=== PATIENT | female | born 1935 | race African-American/Black ===

== ENCOUNTER 2016-09-04 16:24 | Inpatient (IN) | payer OTHER, BC ==
[2016-09-04] MEDS ORDERED: SODIUM CHLORIDE 1,000 ML IV STA (16:56)
[2016-09-04] MEDS ORDERED: ACETAMINOPHEN 325 MG TABLET (FP) PO ONE (16:58)
[2016-09-04] MEDS ORDERED: ACETAMINOPHEN 325 MG TABLET (FP) ONE (17:09)
[2016-09-04 17:17] LABS: BASOPHIL 0.4 % (0-2.0); EOSINOPHIL 0.3 % (0-4.5); MCH 30.3 pg (25.7-33.7); MCHC 33.2 g/dl (32.0-36.0); MEAN CELL VOLUME 91.2 fl (80-96); MEAN PLT VOLUME 8.1 fl (7.5-11.1); NEUTROPHILS 78.9 % (42.8-82.8); PLATELET COUNT 170 K/MM3 (134-434); RDW 14.8 % (11.6-15.6); VENOUS PH 7.39 (7.32-7.42)
[2016-09-04 17:21] LABS: VENOUS BLOOD GAS HCO3 27.4 meq/L (19-25)
[2016-09-04 17:34] LABS: INR 2.83 (0.82-1.09); PROTHROMBIN TIME (PATIENT) 31.8 SEC (9.98-11.88)
[2016-09-04 17:40] LABS: ALBUMIN 3.7 g/dl (3.4-5.0); BILIRUBIN,TOTAL 0.4 mg/dL (0.2-1.0); CALCIUM 8.5 mg/dL (8.5-10.1); CREATININE 1.9 mg/dL (0.55-1.02); TOT PROT 7.2 g/dl (6.4-8.2)
[2016-09-04 17:42] LABS: TROPONIN I 0.09 ng/ml (0.00-0.05)
--- NOTE | 2016-09-04 17:48 | PDOC ---
History of Present Illness - General Chief Complaint: SIRS, Suspected/Possible Stated Complaint: FEVER WEAKNESS Time Seen by Provider: 09/04/16 16:45 History Source: Patient Exam Limitations: No Limitations - History of Present Illness Initial Comments: 09/04/16 16:50 81-year-old female presents to the ED with cough, fever, and generalized myalgia. Arthralgia/myalgia. Patient states symptoms began approximate 2 days ago and has worsened since this afternoon. Patient states no recent travel, recent illness, recent change in meds, chest pain, or vomiting. Patient with history of CAD, PE, hypertension, dyslipidemia. Timing/Duration: reports: yesterday Severity: reports: moderate Possible Cause: Yes: occasional episodes Modifying Factors: improves with: coughing Associated Symptoms: reports: cough, fever/chills Past History - Past Medical History Allergies/Adverse Reactions: Allergies Allergy/AdvReac Type Severity Reaction Status Date / Time coffee (Coffea arabica) Allergy Mild Verified 09/04/16 16:38 Bananas Allergy Intermediate Swelling Uncoded 09/04/16 16:38 Home Medications: Ambulatory Orders Prednisolone 1% Ophthalmic [Pred Forte 1% -] 1 drop OU BID 09/04/16 Valsartan/Hydrochlorothiazide [Valsartan-Hctz 160-12.5 mg Tab] 0 each PO DAILY 09/04/16 Warfarin Sodium [Coumadin] 3 mg PO HS 09/04/16 Anemia: No Asthma: No Cancer: No Cardiac Disorders: Yes CVA: No COPD: No (hx of PE) CHF: No Dementia: No Diabetes: No GI Disorders: No Disorders: Yes (prolapse uterus) HTN: Yes Hypercholesterolemia: Yes Liver Disease: No Suicide Attempt (Hx): No Seizures: No Thyroid Disease: No - Surgical History Abdominal Surgery: Yes (rt inguinal hernia) Appendectomy: No Cardiac Surgery: No Cholecystectomy: No Neurologic Surgery: No Orthopedic Surgery: No - Reproductive History Cervical CA: No Dysfunctional Uterine Bleeding: No Therapeutic (s) & number: No - Immunization History Immunization Up to Date: Yes - Psycho/Social/Smoking Cessation Hx Anxiety: No Suicidal Ideation: No Smoking Status: No Smoking History: Never smoked Have you smoked in the past 12 months: No Number of Cigarettes Smoked Daily: 0 Information on smoking cessation initiated: No Hx Alcohol Use: No Drug/Substance Use Hx: No Substance Use Type: None Hx Substance Use Treatment: No Patient Lives Alone: No Review of Systems - Review of Systems Able to Perform ROS?: Yes Constitutional: Yes: Chills, Fever HEENTM: No: Symptoms Reported Respiratory: Yes: Cough Cardiac (ROS): No: Symptoms Reported ABD/GI: No: Symptoms Reported : No: Symptoms Reported Musculoskeletal: Yes: Joint Pain (generalized mild) Integumentary: No: Symptoms Reported Neurological: No: Symptoms reported *Physical Exam - Vital Signs Last Vital Signs Temp Pulse Resp BP Pulse Ox 102.7 F H 122 H 19 128/56 91 L 09/04/16 16:36 09/04/16 16:36 09/04/16 16:36 09/04/16 16:36 09/04/16 16:36 - Physical Exam General Appearance: Yes: Nourished, Appropriately Dressed. No: Apparent Distress HEENT: positive: EOMI, MATIAS, TMs Normal, Pharynx Normal. negative: Pale Conjunctivae Neck: positive: Supple Respiratory/Chest: positive: Rhonchi (expiratory bilateral bases) Cardiovascular: positive: Regular Rhythm, Tachycardia. negative: Murmur Gastrointestinal/Abdominal: positive: Soft. negative: Tenderness Integumentary: positive: Normal Color, Warm, Moist Neurologic: positive: Motor Strength 5/5 (ambulatory) Heart Score/ECG Review - ECG Intrepretation Rhythm: Regular Rhythm (sinus tachy 121. left Bundle-brah block) ED Treatment Course - LABORATORY CBC & Chemistry Diagram: 09/04/16 17:01 09/04/16 17:01 - ADDITIONAL ORDERS Additional order review: Laboratory Results 09/04/16 17:01 VBG pH 7.39 POC VBG pCO2 46.3 POC VBG pO2 25.5 L Mixed VBG HCO3 27.4 H 09/04/16 17:01 RBC 4.33 MCV 91.2 MCHC 33.2 RDW 14.8 MPV 8.1 Neutrophils % 78.9 D Lymphocytes % 10.3 D Monocytes % 10.1 Eosinophils % 0.3 D Basophils % 0.4 - RADIOLOGY Radiology Studies Ordered: Category Date Time Status CHEST X-RAY PORTABLE* [RAD] Stat Radiology 09/04/16 16:56 Taken - Medications Given in the ED: ED Medications Discontinued Medications Generic Name Dose Route Start Last Admin Trade Name Freq PRN Reason Stop Dose Admin Acetaminophen 650 mg 09/04/16 16:58 09/04/16 17:12 Tylenol - PO 09/04/16 16:59 650 mg ONCE ONE Administration Medical Decision Making - Medical Decision Making 09/04/16 16:55 Patient sent by PCP Dr. Novak for evaluation Patient arrives with complaints of cough and fever for the past 2 days. Patient arrives tachycardic febrile and satting at 91% on room air. Patient concerning for sepsis secondary to pneumonia/influenza. Septic workup initiated and sent influenza swab. Tylenol given for fever.. 09/04/16 17:56 Chest x-ray shows left lower lobe minimal atelectasis. Patient positive for influenza A. Call placed to Dr. Novak for admission 09/04/16 18:24 Selected Entries 09/04/16 17:58 Pulse Rate [ 117 H Apical] Respiratory 19 Rate Blood Pressure 117/55 [Left Arm] O2 Sat by Pulse 96 Oximetry (%) Laboratory Tests 09/04/16 09/04/16 09/04/16 17:01 17:01 17:01 WBC 5.0 Hgb 13.1 Hct 39.5 Neutrophils % 78.9 D INR 2.83 H D VBG pH 7.39 POC VBG pCO2 46.3 POC VBG pO2 25.5 L Mixed VBG HCO3 27.4 H Sodium Potassium BUN Creatinine Random Glucose Lactic Acid Creatine Kinase Troponin I 09/04/16 09/04/16 17:01 17:01 WBC Hgb Hct Neutrophils % INR VBG pH POC VBG pCO2 POC VBG pO2 Mixed VBG HCO3 Sodium 141 Potassium 3.2 L BUN 22 H Creatinine 1.9 H D Random Glucose 142 H D Lactic Acid 2.093 H* Creatine Kinase 207 H Troponin I 0.09 H Patient ordered for 40 meq of potassium. Patient also ordered for an additional 500 mL of normal saline. Patient also will be placed in telemetry and case discussed with Dr. Hernandez who accepted the case. 09/04/16 18:27 Patient has no complaints of chest pain or palpitations but ordered for second troponin at 9PM including an EKG. *DC/Admit/Observation/Transfer Diagnosis at time of Disposition: Influenza A, Atelectasis of left lung, Severe sepsis Sepsis Qualifiers: Sepsis type: sepsis due to unspecified organism Qualified Code(s): A41.9 - Sepsis, unspecified organism - Discharge Dispostion Admit: Yes - Referrals Referrals: Karol Novak MD [Primary Care Provider] -
[2016-09-04] MEDS ORDERED: SODIUM CHLORIDE 500 ML IV STA (18:22)
[2016-09-04] MEDS ORDERED: POTASSIUM CHLORIDE TABS 20 MEQ TABLET.ER (FP) PO ONE ×2 (18:23→18:27)
[2016-09-04] MEDS ORDERED: OSELTAMIVIR PHOSPHATE 75 MG CAPSULE PO ONE (19:06)
[2016-09-04] MEDS ORDERED: OSELTAMIVIR PHOSPHATE 75 MG CAPSULE ONE (19:09)
[2016-09-04 23:01] LABS: TROPONIN I 0.16 ng/ml (0.00-0.05)
[2016-09-05 03:39] VITALS: BMI 44.4
[2016-09-05 06:47] LABS: URINE APPEARANCE CLEAR; URINE BILIRUBIN NEGATIVE (NEGATIVE); URINE BLOOD 2+ (NEGATIVE); URINE COLOR YELLOW; URINE GLUCOSE (UA) NEGATIVE (NEGATIVE); URINE KETONE NEGATIVE (NEGATIVE); URINE LEUK ESTERASE NEGATIVE (NEGATIVE); URINE NITRITE NEGATIVE (NEGATIVE); URINE PROTEIN 1+ (NEGATIVE); URINE UROBILINOGEN NEGATIVE E.U./dl (0.2-1.0)
[2016-09-05 06:50] LABS: GRANULAR CASTS 1 /lpf; URINE HYALINE CAST 1 /lpf; URINE MUCUS RARE; URINE RBC 2 /hpf (0-3); URINE WBC 1 /hpf (3-5)
[2016-09-05 07:30] LABS: INR 2.58 (0.82-1.09); PROTHROMBIN TIME (PATIENT) 28.9 SEC (9.98-11.88)
[2016-09-05 08:09] LABS: TROPONIN I 0.21 ng/ml (0.00-0.05)
[2016-09-05] MEDS ORDERED: PNEUMOC 13-VAL CONJ-DIP CRM/PF 0.5 ML DISP.SYRIN IM ONE (10:00)
[2016-09-05] MEDS ORDERED: HYDROCHLOROTHIAZIDE 12.5 MG CAPSULE (FP) PO SCH (10:00)
--- NOTE | 2016-09-05 10:24 | CON.CARD ---
Cardiology Consult (text) - Consultation Consultation Note: cc: fever, cough hpi: 81 f hx hld, htn, PE (approx 4 yrs ago, on ac since), here with fever, cough. Had been feeling well until about 2 wks ago when noticed cough. Went away on own but then over past 2 days cough returned and felt subjective chills/ fever so came to hospital. No cp, sob, palps, dizzy, pnd, orthopnea, le edema. Also with mylagias. No hx hrt dz per pt. Found to have the flu here. pmh: per hpi psh: hernia repair social: no tob fam: no premature cad ros: per hpi; no nvd, abarca, vision changes, wt loss, gib, hematuria, dysuria, rash meds: Home Medications Medication Instructions Recorded Prednisolone 1% Ophthalmic [Pred 1 drop OU BID 09/04/16 Forte 1% -] Valsartan/Hydrochlorothiazide 0 each PO DAILY 09/04/16 [Valsartan-Hctz 160-12.5 mg Tab] Warfarin Sodium [Coumadin] 3 mg PO HS 09/04/16 pe: Vital Signs Period Temp Pulse Resp BP Sys/Horowitz Pulse Ox Last 24 Hr 99.5 F-102.7 F 86-122 18-20 116-143/55-96 91-97 nad, no jvd rrr s1s2 no mrg scattered bl mild wheeze, nl eff aaox3 no le c/c, trace le edema bl abd nt nd pos bs no jaundice diaporesis pos dp pt no carotid bruits Laboratory Last Values WBC 5.0 K/mm3 (4.0-10.0) 09/04/16 17:01 RBC 4.33 M/mm3 (3.60-5.2) 09/04/16 17:01 Hgb 13.1 GM/dL (10.7-15.3) 09/04/16 17:01 Hct 39.5 % (32.4-45.2) 09/04/16 17:01 MCV 91.2 fl (80-96) 09/04/16 17:01 MCHC 33.2 g/dl (32.0-36.0) 09/04/16 17:01 RDW 14.8 % (11.6-15.6) 09/04/16 17:01 Plt Count 170 K/MM3 (134-434) 09/04/16 17:01 MPV 8.1 fl (7.5-11.1) 09/04/16 17:01 Neutrophils % 78.9 % (42.8-82.8) D 09/04/16 17:01 Lymphocytes % 10.3 % (8-40) D 09/04/16 17:01 Monocytes % 10.1 % (3.8-10.2) 09/04/16 17: Eosinophils % 0.3 % (0-4.5) D 09/04/16 17:01 Basophils % 0.4 % (0-2.0) 09/04/16 17: INR 2.58 (0.82-1.09) H 09/05/16 05:35 VBG pH 7.39 (7.32-7.42) 09/04/16 17:01 POC VBG pCO2 46.3 mmHg (38-52) 09/04/16 17:01 POC VBG pO2 25.5 mmHg (28-48) L 09/04/16 17:01 Mixed VBG HCO3 27.4 meq/L (19-25) H 09/04/16 17:01 Sodium 141 mmol/L (136-145) 09/04/16 17:01 Potassium 3.2 mmol/L (3.5-5.1) L 09/04/16 17:01 Chloride 104 mmol/L (98-107) 09/04/16 17:01 Carbon Dioxide 26 mmol/L (21-32) 09/04/16 17:01 Anion Gap 11 (8-16) 09/04/16 17:01 BUN 22 mg/dL (7-18) H 09/04/16 17:01 Creatinine 1.9 mg/dL (0.55-1.02) H D 09/04/16 17:01 Creat Clearance w eGFR 25.44 (>60) 09/04/16 17:01 Random Glucose 142 mg/dL (74-106) H D 09/04/16 17:01 Lactic Acid 1.026 mmol/L (0.4-2.0) 09/04/16 19:40 Calcium 8.5 mg/dL (8.5-10.1) 09/04/16 17:01 Total Bilirubin 0.4 mg/dL (0.2-1.0) 09/04/16 17:01 AST 20 U/L (15-37) 09/04/16 17:01 ALT 17 U/L (12-78) 09/04/16 17:01 Alkaline Phosphatase 46 U/L (45-117) 09/04/16 17:01 Creatine Kinase 1175 IU/L (26-192) H D 09/05/16 05:35 CK-MB (CK-2) 1.003 ng/ml (0.5-3.6) 09/04/16 17:01 Troponin I 0.21 ng/ml (0.00-0.05) H 09/05/16 05:35 Total Protein 7.2 g/dl (6.4-8.2) 09/04/16 17:01 Albumin 3.7 g/dl (3.4-5.0) 09/04/16 17:01 Urine Color Yellow 09/05/16 04:15 Urine Appearance Clear 09/05/16 04:15 Urine pH 5.0 (5.0-8.0) 09/05/16 04:15 Ur Specific Rarden 1.024 (1.001-1.035) 09/05/16 04:15 Urine Protein 1+ (NEGATIVE) H 09/05/16 04:15 Urine Glucose (UA) Negative (NEGATIVE) 09/05/16 04:15 Urine Ketones Negative (NEGATIVE) 09/05/16 04:15 Urine Blood 2+ (NEGATIVE) H 09/05/16 04:15 Urine Nitrite Negative (NEGATIVE) 09/05/16 04:15 Urine Bilirubin Negative (NEGATIVE) 09/05/16 04:15 Urine Urobilinogen Negative E.U./dl (0.2-1.0) 09/05/16 04:15 Ur Leukocyte Esterase Negative (NEGATIVE) 09/05/16 04:15 Urine RBC 2 /hpf (0-3) 09/05/16 04:15 Urine WBC 1 /hpf (3-5) 09/05/16 04:15 Ur Epithelial Cells Rare /hpf (FEW) 09/05/16 04:15 Hyaline Casts 1 /lpf 09/05/16 04:15 Granular Casts 1 /lpf 09/05/16 04:15 Urine Mucus Rare 09/05/16 04:15 Blood Type O POSITIVE 09/04/16 17:01 Antibody Screen Negative 09/04/16 17:01 echo 12/2012: nl lv/rv, no sig valve path cxr: mild left lung base atx ecg 09/04/16: sinus tachy, lbbb, nl pr, no sig change 12/29/12 ecg tele: sr a/p: 81 f hx hld, htn, PE (approx 4 yrs ago, on ac since), here with fever, cough. flu: -abx, supportive care per PMD/ID delores: -cont tx of flu, ivfs hld: -stable htn: -stable on home meds PE: -cont ac per inr elevated troponin: -borderline troponin elevation with flat trend and normal ckmb, not consistent with acs, likely due to delores/infection -check echo to see lv wall motion -cont tele
[2016-09-05] MEDS: VALSARTAN 160 MG TABLET (UD) PO SCH (11:53)
--- NOTE | 2016-09-05 11:53 | HP ---
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 high lactic acid on admission labs clinically dehyrated on exam s/p ivf x2 bags flu ag positive History Source: Patient - Past Medical History Cardiovascular: Yes: CAD, HTN Pulmonary: No: COPD - Smoking History Smoking history: Never smoked Have you smoked in the past 12 months: No Aproximately how many cigarettes per day: 0 - Alcohol/Substance Use Hx Alcohol Use: No Home Medications - Allergies Allergies/Adverse Reactions: Allergies Allergy/AdvReac Type Severity Reaction Status Date / Time coffee (Coffea arabica) Allergy Mild Verified 09/04/16 16:38 Bananas Allergy Intermediate Swelling Uncoded 09/04/16 16:38 - Home Medications Home Medications: Ambulatory Orders Prednisolone 1% Ophthalmic [Pred Forte 1% -] 1 drop OU BID 09/04/16 Valsartan/Hydrochlorothiazide [Valsartan-Hctz 160-12.5 mg Tab] 0 each PO DAILY 09/04/16 Warfarin Sodium [Coumadin] 3 mg PO HS 09/04/16 Family Disease History - Family Disease History Family History: Unable to Obtain Review of Systems - Review of Systems Constitutional: reports: Fever Eyes: reports: No Symptoms HENT: reports: Nasal Congestion Neck: reports: No Symptoms Cardiovascular: reports: Edema, Shortness of Breath Respiratory: reports: Cough, SOB. denies: Hemoptysis, Orthopnea Gastrointestinal: reports: No Symptoms Genitourinary: reports: No Symptoms Breasts: reports: No Symptoms Reported Musculoskeletal: reports: No Symptoms Integumentary: reports: No Symptoms Neurological: reports: No Symptoms Endocrine: reports: No Symptoms Hematology/Lymphatic: reports: No Symptoms Psychiatric: reports: No Symptoms Physical Examination Vital Signs: Vital Signs Temperature 99.5 F 09/05/16 04:27 Pulse Rate 93 H 09/05/16 04:27 Respiratory Rate 18 09/05/16 04:27 Blood Pressure 143/73 09/05/16 04:27 O2 Sat by Pulse Oximetry (%) 93 L 09/05/16 03:39 Constitutional: Yes: Obese Eyes: Yes: WNL HENT: Yes: [place] Neck: Yes: WNL Cardiovascular: Yes: Tachycardia Respiratory: Yes: WNL Gastrointestinal: Yes: WNL Renal/: Yes: WNL Breast(s): Yes: WNL Musculoskeletal: Yes: WNL Extremities: Yes: WNL Edema: Yes Edema: LLE: 1+, RLE: 1+ Peripheral Pulses WNL: Yes Integumentary: Yes: WNL Neurological: Yes: WNL, Alert, Oriented ...Motor Strength: WNL Psychiatric: Yes: WNL Assessment/Plan influenza acute kidney injury/dehydration obesity current azotemia may be short lasting- will give some ivf hypokalemia - being replaced, will follow labs next 2 days calculated creat clearance (C-G equation) 48 ml/min no need for dosage adjustment of Tamiflu h/o cad, pte 4 years ago, htn, hld plan- tamiflu to complete 10 days ivf with kcl f/u labs
[2016-09-05] MEDS: prednisoLONE ACETATE 1% OPHTH SUSP 5 ML BOTTLE OU SCH ×2 (11:54→22:59)
[2016-09-05] MEDS ORDERED: SODIUM CHLORIDE 1,000 ML IV SCH (12:15)
[2016-09-05] MEDS ORDERED: OSELTAMIVIR PHOSPHATE 75 MG CAPSULE PO SCH (12:45)
--- NOTE | 2016-09-05 14:52 | PN ---
Progress Note (short form) - Note Progress Note: ID consult dictated imp/reccd influenza A mild rhabdomyolysis ellie crcl 48 tamiflu 30 bid for 5 days droplet isolation ivf f/u labs, cpk in am Problem List - Problems (1) Influenza A Code(s): J10.1 - FLU DUE TO OTH IDENT INFLUENZA VIRUS W OTH RESP MANIFEST (2) Rhabdomyolysis Code(s): M62.82 - RHABDOMYOLYSIS Qualifiers: Rhabdomyolysis type: non-traumatic Qualified Code(s): M62.82 - Rhabdomyolysis (3) ELLIE (acute kidney injury) Code(s): N17.9 - ACUTE KIDNEY FAILURE, UNSPECIFIED
[2016-09-05] MEDS: SODIUM CHLORIDE 0.9%/KCL 1,000 ML IV SCH (15:08)
[2016-09-05] MEDS: guaiFENesin/D-M SUGAR-FREE/ACLHOL-FREE 118 ML BOTTLE PO PRN (15:10)
--- NOTE | 2016-09-05 16:39 | EKG ---
Test Reason : Blood Pressure : / mmHG Vent. Rate : 121 BPM Atrial Rate : 121 BPM P-R Int : 148 ms QRS Dur : 118 ms QT Int : 348 ms P-R-T Axes : 049 -13 126 degrees QTc Int : 494 ms SINUS TACHYCARDIA POSSIBLE LEFT ATRIAL ENLARGEMENT INCOMPLETE LEFT BUNDLE BRANCH BLOCK ABNORMAL ECG Confirmed by MD JASKARAN, MARIELOS ([id number]) on 09/05/2016 4:39:37 PM Referred By: Confirmed By:MARIELOS JESSICA MD
[2016-09-05] MEDS: WARFARIN NA 3 MG TABLET PO SCH (17:21)
[2016-09-05] MEDS: OSELTAMIVIR PHOSPHATE 30 MG CAPSULE PO SCH ×2 (18:38→22:58)
[2016-09-06] MEDS ORDERED: PT OWN MED DRAWER 7, Y5N ONE ×2 (04:55→21:21)
[2016-09-06 07:01] LABS: MCH 30.2 pg (25.7-33.7); MCHC 33.2 g/dl (32.0-36.0); MEAN PLT VOLUME 7.9 fl (7.5-11.1); PLATELET COUNT 124 K/MM3 (134-434); RDW 14.9 % (11.6-15.6); WHITE BLOOD COUNT 3.1 K/mm3 (4.0-10.0)
[2016-09-06 07:44] LABS: CALCIUM 7.7 mg/dL (8.5-10.1)
[2016-09-06 07:49] LABS: BILIRUBIN,TOTAL 0.3 mg/dL (0.2-1.0); TOT PROT 5.9 g/dl (6.4-8.2)
--- NOTE | 2016-09-06 10:45 | PN ---
Progress Note, Physician History of Present Illness: Awake, alert Complains of sinus congestion and ear fullness No c/o fever/ chills + Leukopenia and thrombocytopenia - Current Medication List Current Medications: Active Medications Guaifenesin (Diabetic Tussin Dm -) 5 ml PO Q4H PRN PRN Reason: COUGH Last Admin: 09/05/16 15:10 Dose: 5 ml Potassium Chloride/Sodium Chloride (Ns+20 Meq Kcl -) 1,000 mls @ 100 mls/hr IV ASDIR [facility] Last Admin: 09/05/16 15:08 Dose: 100 mls/hr Oseltamivir Phosphate (Tamiflu -) 30 mg PO BID [facility] Stop: 09/10/16 14:44 Last Admin: 09/05/16 22:58 Dose: 30 mg Prednisolone Acetate (Pred Forte 1% -) 1 drop OU BID [facility] Last Admin: 09/05/16 22:59 Dose: 1 drop Valsartan (Diovan -) 160 mg PO DAILY [facility] Last Admin: 09/05/16 11:53 Dose: 160 mg Warfarin Sodium (Coumadin -) 3 mg PO DAILY@1800 [facility] Last Admin: 09/05/16 17:21 Dose: 3 mg - Objective Vital Signs: Vital Signs Temperature 98.0 F 09/06/16 09:49 Pulse Rate 91 H 09/06/16 09:49 Respiratory Rate 20 09/06/16 09:49 Blood Pressure 122/66 09/06/16 09:49 O2 Sat by Pulse Oximetry (%) 93 L 09/05/16 21:00 Constitutional: Yes: No Distress Eyes: Yes: Conjunctiva Clear Cardiovascular: Yes: Regular Rate and Rhythm, S1, S2 Respiratory: Yes: Diminished Gastrointestinal: Yes: Normal Bowel Sounds, Soft. No: Tenderness Edema: Yes Labs: CBC, BMP 09/06/16 05:45 09/06/16 05:45 INR, PTT INR 2.58 (0.82-1.09) H 09/05/16 05:35 Assessment/Plan Acute influenza A Leukopenia/ thrombocytopenia secondary to viral infection Continue Tamiflu Droplet precautions
[2016-09-06] MEDS: prednisoLONE ACETATE 1% OPHTH SUSP 5 ML BOTTLE OU SCH ×2 (10:46→21:23)
[2016-09-06] MEDS: OSELTAMIVIR PHOSPHATE 30 MG CAPSULE PO SCH ×2 (10:46→21:22)
[2016-09-06] MEDS: VALSARTAN 160 MG TABLET (UD) PO SCH (10:46)
--- NOTE | 2016-09-06 11:30 | CONS ---
INFECTIOUS DISEASE CONSULTATION DATE OF CONSULTATION: DATE OF DICTATION: 09/05/2016 This is an 81-year-old woman with a history of hyperlipidemia, hypertension, PE approximately 4 years ago. About 2 weeks ago, she had a cough which spontaneously resolved. Then, again, 2 or 3 days ago, she has been having cough with fever and chills. She feels extreme weakness and myalgia. She is having difficulty ambulating due to profound weakness. She denies any chest pain or shortness of breath. She presented with these complaints to the emergency room and was found to have influenza A. PAST MEDICAL HISTORY: Notable for hyperlipidemia, hypertension, PE 4 years ago. She has a history of prolapsed uterus in the past, hypercholesterolemia. SURGICAL HISTORY: Notable for an inguinal hernia repair. VACCINATIONS: She is up to date on her vaccines and received influenza vaccine this year. SOCIAL HISTORY: She lives in the community. She uses a walker at home and an electric wheelchair outside the house. REVIEW OF SYSTEMS: Notable for she has abdominal discomfort which she attributes to her hacking cough. She notes that she has weakness, especially of her legs at present. PHYSICAL EXAMINATION: Vital Signs: T-max was 102.7 on admission. Current temperature is 98.6. Pulse of 93, blood pressure 143/73. Respiratory rate is 18. She is saturating 92% on 2 L. HEENT: She is normocephalic. Eyes are anicteric. Neck: Supple. Lungs: Bilateral rhonchi. Heart: Regular rate and rhythm. Abdomen: Soft, nontender. Extremities: Without edema. Skin: She has no rash. LABORATORY DATA: White count is 5000, hemoglobin 13.1, platelets of 170. INR is 2.58. BUN is 22 and creatinine 1.9. Lactic acid was 2.09 on admission. Repeat was 1.02. She got several liters of fluid. Of note, her CPK was 207 on admission, and this morning is 1175. Urinalysis has 1 white cell. Blood cultures are pending. Her influenza screen was positive for influenza A. Chest x-ray is negative for infiltrate. In summary, this is an 81-year-old woman admitted with acute onset of fever, cough, myalgia, with influenza A, acute kidney injury, and dehydration, as well as rhabdomyolysis. Her creatinine clearance is 48, so I would dose her Tamiflu at 30 mg p.o. b.i.d. Would treat for a total of 5 days. Would maintain droplet isolation. Would continue IV fluids for her mild rhabdomyolysis and would repeat labs with a CPK in the morning. DANDRE FOWLER M.D. [id number]
--- NOTE | 2016-09-06 11:44 | PN ---
Progress Note, Physician History of Present Illness: No complaints Tele: WCT at 140. (?AT with [employer]) - Current Medication List Current Medications: Active Medications Guaifenesin (Diabetic Tussin Dm -) 5 ml PO Q4H PRN PRN Reason: COUGH Last Admin: 09/05/16 15:10 Dose: 5 ml Potassium Chloride/Sodium Chloride (Ns+20 Meq Kcl -) 1,000 mls @ 100 mls/hr IV ASDIR [facility] Last Admin: 09/05/16 15:08 Dose: 100 mls/hr Oseltamivir Phosphate (Tamiflu -) 30 mg PO BID [facility] Stop: 09/10/16 14:44 Last Admin: 09/06/16 10:46 Dose: 30 mg Prednisolone Acetate (Pred Forte 1% -) 1 drop OU BID [facility] Last Admin: 09/06/16 10:46 Dose: 1 drop Valsartan (Diovan -) 160 mg PO DAILY [facility] Last Admin: 09/06/16 10:46 Dose: 160 mg Warfarin Sodium (Coumadin -) 3 mg PO DAILY@1800 [facility] Last Admin: 09/05/16 17:21 Dose: 3 mg - Objective Vital Signs: Vital Signs Temperature 98.0 F 09/06/16 09:49 Pulse Rate 91 H 09/06/16 09:49 Respiratory Rate 20 09/06/16 09:49 Blood Pressure 122/66 09/06/16 09:49 O2 Sat by Pulse Oximetry (%) 93 L 09/05/16 21:00 Constitutional: Yes: No Distress Eyes: Yes: WNL HENT: Yes: WNL, Tonsillar Exudate Cardiovascular: Yes: WNL Respiratory: Yes: WNL Gastrointestinal: Yes: WNL Extremities: Yes: WNL Edema: No Labs: CBC, BMP 09/06/16 05:45 09/06/16 05:45 INR, PTT INR 2.58 (0.82-1.09) H 09/05/16 05:35 Assessment/Plan a/p: 81 f hx hld, htn, PE (approx 4 yrs ago, on ac since), here with fever, cough. flu: -abx, supportive care per PMD/ID delores: -cont tx of flu, ivfs hld: -stable htn: -stable on home meds PE: -cont ac per inr. INR yesterday 2.58 -Would recheck INR tomorrow elevated troponin: -borderline troponin elevation with flat trend and normal ckmb, not consistent with acs, likely due to delores/infection -Echo done with overall normal LV function (noted septal W paradoxical motion due to conduction abnormality) -cont tele
[2016-09-06] MEDS: SODIUM CHLORIDE 0.9%/KCL 1,000 ML IV SCH (15:45)
--- NOTE | 2016-09-06 16:55 | PN ---
Progress Note (short form) - Note Progress Note: influenza obesity persistent cough ears clogged and painful Current Medications Guaifenesin (Diabetic Tussin Dm -) 5 ml PO Q4H PRN PRN Reason: COUGH Last Admin: 09/05/16 15:10 Dose: 5 ml Potassium Chloride/Sodium Chloride (Ns+20 Meq Kcl -) 1,000 mls @ 100 mls/hr IV ASDIR [facility] Last Admin: 09/06/16 15:45 Dose: 100 mls/hr Loratadine (Claritin -) 10 mg PO DAILY [facility] Oseltamivir Phosphate (Tamiflu -) 30 mg PO BID [facility] Stop: 09/10/16 14:44 Last Admin: 09/06/16 10:46 Dose: 30 mg Prednisolone Acetate (Pred Forte 1% -) 1 drop OU BID [facility] Last Admin: 09/06/16 10:46 Dose: 1 drop Pseudoephedrine HCl (Sudafed -) 30 mg PO BID [facility] Valsartan (Diovan -) 160 mg PO DAILY [facility] Last Admin: 09/06/16 10:46 Dose: 160 mg Warfarin Sodium (Coumadin -) 3 mg PO DAILY@1800 [facility] Last Admin: 09/05/16 17:21 Dose: 3 mg Last Vital Signs Temp Pulse Resp BP Pulse Ox 98.3 F 66 20 101/55 93 L 09/06/16 14:00 09/06/16 14:00 09/06/16 14:00 09/06/16 14:00 09/06/16 09:00 CBC, BMP 09/06/16 05:45 09/06/16 05:45 influenza upper airway gongestion- has taken claritinD in past delores resolved hypokalemia thrombocytopenia f/u labs in am
[2016-09-06] MEDS: WARFARIN NA 3 MG TABLET PO SCH (18:08)
[2016-09-06] MEDS: LORATADINE 10 MG TABLET PO SCH (18:08)
[2016-09-06] MEDS: guaiFENesin/D-M SUGAR-FREE/ACLHOL-FREE 118 ML BOTTLE PO PRN (21:24)
[2016-09-06] MEDS: PSEUDOEPHEDRINE HCL 30 MG TABLET PO SCH (21:33)
[2016-09-07] MEDS: SODIUM CHLORIDE 0.9%/KCL 1,000 ML IV SCH ×2 (05:01→15:00)
[2016-09-07 08:25] LABS: MCH 30.2 pg (25.7-33.7); MCHC 32.9 g/dl (32.0-36.0); MEAN PLT VOLUME 8.1 fl (7.5-11.1); PLATELET COUNT 121 K/MM3 (134-434); RDW 14.8 % (11.6-15.6); WHITE BLOOD COUNT 2.9 K/mm3 (4.0-10.0)
[2016-09-07 08:54] LABS: ANION GAP 5 (8-16); CALCIUM 7.5 mg/dL (8.5-10.1); CO2 28 mmol/L (21-32); CREATININE 0.8 mg/dL (0.55-1.02); GLUCOSE,RANDOM 93 mg/dL (74-106); SGOT/AST 45 U/L (15-37); SGPT/ALT 24 U/L (12-78)
[2016-09-07 08:55] LABS: INR 1.93 (0.82-1.09); PROTHROMBIN TIME (PATIENT) 21.5 SEC (9.98-11.88)
[2016-09-07 08:56] LABS: ALK PHOS 38 U/L (45-117); BILIRUBIN,TOTAL 0.3 mg/dL (0.2-1.0); TOT PROT 5.9 g/dl (6.4-8.2)
[2016-09-07] MEDS ORDERED: PT OWN MED DRAWER 7, Y5N ONE ×2 (09:25→21:11)
[2016-09-07] MEDS: OSELTAMIVIR PHOSPHATE 30 MG CAPSULE PO SCH ×2 (09:34→21:18)
[2016-09-07] MEDS: VALSARTAN 160 MG TABLET (UD) PO SCH (09:34)
[2016-09-07] MEDS: LORATADINE 10 MG TABLET PO SCH (09:35)
[2016-09-07] MEDS: prednisoLONE ACETATE 1% OPHTH SUSP 5 ML BOTTLE OU SCH ×2 (09:35→21:20)
[2016-09-07] MEDS: PSEUDOEPHEDRINE HCL 30 MG TABLET PO SCH ×2 (09:36→21:20)
--- NOTE | 2016-09-07 11:18 | PN ---
Progress Note, Physician History of Present Illness: No complaints No events Tele: SR (to 120s) - Current Medication List Current Medications: Active Medications Guaifenesin (Diabetic Tussin Dm -) 5 ml PO Q4H PRN PRN Reason: COUGH Last Admin: 09/06/16 21:24 Dose: 5 ml Potassium Chloride/Sodium Chloride (Ns+20 Meq Kcl -) 1,000 mls @ 100 mls/hr IV [facility] Last Admin: 09/07/16 05:01 Dose: 100 mls/hr Loratadine (Claritin -) 10 mg PO DAILY [facility] Last Admin: 09/07/16 09:35 Dose: 10 mg Oseltamivir Phosphate (Tamiflu -) 30 mg PO BID [facility] Stop: 09/10/16 14:44 Last Admin: 09/07/16 09:34 Dose: 30 mg Prednisolone Acetate (Pred Forte 1% -) 1 drop OU BID [facility] Last Admin: 09/07/16 09:35 Dose: 1 drop Pseudoephedrine HCl (Sudafed -) 30 mg PO BID [facility] Last Admin: 09/07/16 09:36 Dose: 30 mg Valsartan (Diovan -) 160 mg PO DAILY [facility] Last Admin: 09/07/16 09:34 Dose: 160 mg Warfarin Sodium (Coumadin -) 3 mg PO DAILY@1800 [facility] Last Admin: 09/06/16 18:08 Dose: 3 mg - Objective Vital Signs: Vital Signs Temperature 98.6 F 09/07/16 10:00 Pulse Rate 79 09/07/16 10:00 Respiratory Rate 20 09/07/16 10:00 Blood Pressure 128/72 09/07/16 10:00 O2 Sat by Pulse Oximetry (%) 94 L 09/06/16 21:00 Constitutional: Yes: No Distress, Calm Eyes: Yes: WNL, Conjunctiva Clear HENT: Yes: WNL, Atraumatic Neck: Yes: WNL, Supple Cardiovascular: Yes: WNL, Regular Rate and Rhythm Respiratory: Yes: WNL, Regular Gastrointestinal: Yes: WNL, Normal Bowel Sounds Extremities: Yes: WNL Edema: No Labs: CBC, BMP 09/07/16 06:20 09/07/16 06:20 INR, PTT INR 1.93 (0.82-1.09) H 09/07/16 06:20 Assessment/Plan a/p: 81 f hx hld, htn, PE (approx 4 yrs ago, on ac since), here with fever, cough. flu: -abx, supportive care per PMD/ID delores: -cont tx of flu, ivfs hld: -stable htn: -stable on home meds PE: -cont ac per inr. INR today 1.9 -Dose coumadin 5mg daily elevated troponin: -borderline troponin elevation with flat trend and normal ckmb, not consistent with acs, likely due to delores/infection -Echo done with overall normal LV function (noted septal W paradoxical motion due to conduction abnormality)
--- NOTE | 2016-09-07 12:17 | CON.PULM ---
Consult Consult Specialty:: PULMONARY Referred by:: Dr. Hernandez Reason for Consultation:: influenza - History of Present Illness Chief Complaint: cough History of Present Illness: 81yo female with h/o HTN, hyperlipidemia, h/o PE 4 years ago still on anticoagulation who presents with worsening cough and head congestion. Cough started about 2 weeks ago mostly nonproductive. No fevers, chills or sweats. No shortness fo breath, wheezing or chest tightness. Reports headache but no body aches, sore throat. +nasal congestion. Found to be positive for influenza A. She did receive her flu vaccine this year. She is a never smoker and denies any occupational exposures. - History Source History Provided By: Patient, Medical Record Limitations to Obtaining History: No Limitations - Past Medical History Cardio/Vascular: Yes: CAD, HTN Pulmonary: No: COPD - Alcohol/Substance Use Hx Alcohol Use: No - Smoking History Smoking history: Never smoked Have you smoked in the past 12 months: No Aproximately how many cigarettes per day: 0 Home Medications - Allergies Allergies/Adverse Reactions: Allergies Allergy/AdvReac Type Severity Reaction Status Date / Time coffee (Coffea arabica) Allergy Mild Verified 09/04/16 16:38 Bananas Allergy Intermediate Swelling Uncoded 09/04/16 16:38 - Home Medications Home Medications: Ambulatory Orders Prednisolone 1% Ophthalmic [Pred Forte 1% -] 1 drop OU BID 09/04/16 Valsartan/Hydrochlorothiazide [Valsartan-Hctz 160-12.5 mg Tab] 0 each PO DAILY 09/04/16 Warfarin Sodium [Coumadin] 3 mg PO HS 09/04/16 Review of Systems - Review of Systems Constitutional: reports: Weakness. denies: Chills, Fever Eyes: denies: Recent Change in Vision HENT: reports: Nasal Congestion. denies: Throat Pain Neck: denies: Stiffness, Tenderness Cardiovascular: denies: Chest Pain, Edema, Palpitations, Shortness of Breath Respiratory: reports: Cough. denies: Exercise Intolerance, Hemoptysis, SOB, Wheezing Gastrointestinal: denies: Abdominal Pain, Nausea, Vomiting Genitourinary: denies: Dysuria, Hematuria Neurological: reports: Headache. denies: Dizziness Endocrine: denies: Unexplained Weight Loss Physical Exam Vital Sings: Vital Signs Temperature 98.6 F 09/07/16 10:00 Pulse Rate 79 09/07/16 10:00 Respiratory Rate 20 09/07/16 10:00 Blood Pressure 128/72 09/07/16 10:00 O2 Sat by Pulse Oximetry (%) 94 L 09/06/16 21:00 Constitutional: Yes: No Distress, Calm Eyes: Yes: Conjunctiva Clear, EOM Intact HENT: Yes: Atraumatic, Normocephalic Neck: Yes: Supple, Trachea Midline Cardiovascular: Yes: Regular Rate and Rhythm Respiratory: Yes: Regular, Rales (scattered basilar) ...Clubbing: No Gastrointestinal: Yes: Normal Bowel Sounds, Soft. No: Tenderness Edema: No Neurological: Yes: Alert, Oriented Labs: CBC, BMP 09/07/16 06:20 09/07/16 06:20 Imaging - Results Chest X-ray: Report Reviewed, Image Reviewed (left basilar atelectasis) Problem List - Problems (1) Influenza A Code(s): J10.1 - FLU DUE TO OTH IDENT INFLUENZA VIRUS W OTH RESP MANIFEST (2) Sepsis Code(s): A41.9 - SEPSIS, UNSPECIFIED ORGANISM Qualifiers: Sepsis type: sepsis due to unspecified organism Qualified Code(s): A41.9 - Sepsis, unspecified organism (3) ELLIE (acute kidney injury) Code(s): N17.9 - ACUTE KIDNEY FAILURE, UNSPECIFIED (4) Rhabdomyolysis Code(s): M62.82 - RHABDOMYOLYSIS Qualifiers: Rhabdomyolysis type: non-traumatic Qualified Code(s): M62.82 - Rhabdomyolysis (5) Lactic acidosis Code(s): E87.2 - ACIDOSIS (6) Atelectasis of left lung Code(s): J98.11 - ATELECTASIS Assessment/Plan Influenza A Sepsis Acute Kidney Injury improving Lactic Acidosis resolved Rhabdomyolysis h/o PE - continue tamiflu - IVF - monitor urine output, creatinine - monitor CPK - O2 to keep SpO2 >90% - inhaled bronchodilators as needed - continue anticoagulation, can address as outpt Thank you for this consult Valdemar Hanson MD
[2016-09-07] MEDS: guaiFENesin/D-M SUGAR-FREE/ACLHOL-FREE 118 ML BOTTLE PO PRN (16:27)
[2016-09-07] MEDS ORDERED: WARFARIN NA 5 MG TABLET (UD) PO ONE (18:00)
--- NOTE | 2016-09-07 22:04 | PN ---
Progress Note (short form) - Note Progress Note: Active Medications Guaifenesin (Diabetic Tussin Dm -) 5 ml PO Q4H PRN PRN Reason: COUGH Last Admin: 09/07/16 16:27 Dose: 5 ml Potassium Chloride/Sodium Chloride (Ns+20 Meq Kcl -) 1,000 mls @ 100 mls/hr IV ASDIR [facility] Last Admin: 09/07/16 15:00 Dose: 100 mls/hr Loratadine (Claritin -) 10 mg PO DAILY [facility] Last Admin: 09/07/16 09:35 Dose: 10 mg Oseltamivir Phosphate (Tamiflu -) 30 mg PO BID [facility] Stop: 09/10/16 14:44 Last Admin: 09/07/16 21:18 Dose: 30 mg Prednisolone Acetate (Pred Forte 1% -) 1 drop OU BID [facility] Last Admin: 09/07/16 21:20 Dose: 1 drop Pseudoephedrine HCl (Sudafed -) 30 mg PO BID [facility] Last Admin: 09/07/16 21:20 Dose: 30 mg Valsartan (Diovan -) 160 mg PO DAILY [facility] Last Admin: 09/07/16 09:34 Dose: 160 mg Last Vital Signs Temp Pulse Resp BP Pulse Ox 98.1 F 85 20 128/66 94 L 09/07/16 18:35 09/07/16 18:35 09/07/16 18:35 09/07/16 18:35 09/07/16 09:00 CBC, BMP 09/07/16 06:20 09/07/16 06:20 influenza- improving clinically/afebrile/ less cough delores better hypokalemia better thrombocytopenia persists
[2016-09-08] MEDS: guaiFENesin/D-M SUGAR-FREE/ACLHOL-FREE 118 ML BOTTLE PO PRN (00:40)
[2016-09-08] MEDS: ALBUTEROL SO4 0.083% IH SOL 2.5 MG/3 ML VIAL.NEB. NEB PRN ×3 (00:40→06:48)
[2016-09-08] MEDS ORDERED: methylPREDNISolone NA SUCC 125 MG/2 ML VIAL ONE (06:56)
[2016-09-08] MEDS ORDERED: methylPREDNISolone NA SUCC 125 MG/2 ML VIAL IVPB ONE (07:15)
--- NOTE | 2016-09-08 08:29 | PN ---
Progress Note, Physician Chief Complaint: sob,cough History of Present Illness: was sob but much better now; still coughing a lot; no cp, palpit - Current Medication List Current Medications: Active Medications Albuterol Sulfate (Ventolin 0.083% Nebulizer Soln -) 1 amp NEB Q4H PRN PRN Reason: SHORT OF BREATH/WHEEZING Last Admin: 09/08/16 06:48 Dose: 1 amp Guaifenesin (Diabetic Tussin Dm -) 5 ml PO Q4H PRN PRN Reason: COUGH Last Admin: 09/08/16 00:40 Dose: 5 ml Potassium Chloride/Sodium Chloride (Ns+20 Meq Kcl -) 1,000 mls @ 100 mls/hr IV ASDIR [facility] Last Admin: 09/07/16 15:00 Dose: 100 mls/hr Loratadine (Claritin -) 10 mg PO DAILY [facility] Last Admin: 09/07/16 09:35 Dose: 10 mg Oseltamivir Phosphate (Tamiflu -) 30 mg PO BID [facility] Stop: 09/10/16 14:44 Last Admin: 09/07/16 21:18 Dose: 30 mg Prednisolone Acetate (Pred Forte 1% -) 1 drop OU BID [facility] Last Admin: 09/07/16 21:20 Dose: 1 drop Pseudoephedrine HCl (Sudafed -) 30 mg PO BID [facility] Last Admin: 09/07/16 21:20 Dose: 30 mg Valsartan (Diovan -) 160 mg PO DAILY [facility] Last Admin: 09/07/16 09:34 Dose: 160 mg - Objective Vital Signs: Vital Signs Temperature 97.9 F 09/08/16 06:00 Pulse Rate 92 H 09/08/16 06:00 Respiratory Rate 20 09/08/16 06:00 Blood Pressure 132/79 09/08/16 06:00 O2 Sat by Pulse Oximetry (%) 98 09/07/16 21:00 Constitutional: Yes: No Distress, Calm, Obese Cardiovascular: Yes: Regular Rate and Rhythm, S1, S2. No: JVD, Gallop, Murmur Respiratory: Yes: Regular, Rhonchi, Wheezes. No: Accessory Muscle Use Extremities: Yes: Cold Edema: Yes (mild nonpitting) Neurological: Yes: Alert, Oriented Psychiatric: No: Agitated Labs: CBC, BMP 09/07/16 06:20 09/07/16 06:20 INR, PTT INR 1.93 (0.82-1.09) H 09/07/16 06:20 Assessment/Plan a/p: 81 f hx hld, htn, PE (approx 4 yrs ago, on ac since), here with fever, cough. flu: -abx, supportive care per PMD/ID hld: -stable htn: -stable on home meds PE: -cont ac per inr. INR today 1.9 -coumadin per inr--defer to primary team elevated troponin: -intermediat-range troponin elevation with flat trend and normal ckmb, not consistent with acs, likely due to delores/infection -Echo done with overall normal LV function (noted septal W paradoxical motion due to conduction abnormality)
--- NOTE | 2016-09-08 08:58 | PN ---
Progress Note (short form) - Note Progress Note: continues to cough some blood tinged sputum the sudafed made her feel awful last pm- requesting d/c had episode sob last pm- given steroids and nebs with improvement cxray ?bibasilar infiltrates continues with nasal congestion and wheezing, bilateral effusions no fevers Vital Signs Period Temp Pulse Resp BP Sys/Horowitz Pulse Ox Last 24 Hr 97.5 F-98.6 F 72-99 20-20 128-147/66-89 94-98 cor-rrr lungs bilateral rhonchi, bibasilar rhonchi abd soft,nt ext no edema CBC, BMP 09/07/16 06:20 09/07/16 06:20 Microbiology 09/04/16 17:01 Blood - Peripheral Venous Blood Culture - Preliminary NO GROWTH OBTAINED AFTER 72 HOURS, INCUBATION TO CONTINUE FOR 2 DAYS. 09/04/16 17:01 Blood - Peripheral Venous Blood Culture - Preliminary NO GROWTH OBTAINED AFTER 72 HOURS, INCUBATION TO CONTINUE FOR 2 DAYS. 09/05/16 04:15 Urine - Urine Clean Catch Urine Culture - Final Contaminated: Please Repeat 09/04/16 17:01 Nasopharyngeal Swab Respiratory Virus Panel - Preliminary 09/04/16 17:01 Nasopharyngeal Swab Influenza Types A,B Antigen (GENEVIEVE) - Final 09/04/16 17:01 Nasopharyngeal Swab - Final Current Medications Albuterol Sulfate (Ventolin 0.083% Nebulizer Soln -) 1 amp NEB Q4H PRN PRN Reason: SHORT OF BREATH/WHEEZING Last Admin: 09/08/16 06:48 Dose: 1 amp Ceftriaxone Sodium (Rocephin 1gm Ivpb (Pre-Docked)) 1 gm IVPB DAILY [facility] PRN Reason: Protocol Guaifenesin (Diabetic Tussin Dm -) 5 ml PO Q4H PRN PRN Reason: COUGH Last Admin: 09/08/16 00:40 Dose: 5 ml Potassium Chloride/Sodium Chloride (Ns+20 Meq Kcl -) 1,000 mls @ 100 mls/hr IV ASDIR [facility] Last Admin: 09/07/16 15:00 Dose: 100 mls/hr Loratadine (Claritin -) 10 mg PO DAILY [facility] Last Admin: 09/07/16 09:35 Dose: 10 mg Oseltamivir Phosphate (Tamiflu -) 75 mg PO BID [facility] Stop: 09/13/16 09:59 Prednisolone Acetate (Pred Forte 1% -) 1 drop OU BID [facility] Last Admin: 09/07/16 21:20 Dose: 1 drop Valsartan (Diovan -) 160 mg PO DAILY [facility] Last Admin: 09/07/16 09:34 Dose: 160 mg a/p influenza A-renal function now normal, increase tamiflu to 75 bid rhabdomyolysis continues with cough and SOB- cxray with bibasilar infiltrates/effusions- possible volume overload has been on fluids since admission, consider d/c fluids , ?diuresis will add rocephin for possible pneumonia check urinary antigens sputum culture she is anxious to go home Problem List - Problems (1) Influenza A Code(s): J10.1 - FLU DUE TO OTH IDENT INFLUENZA VIRUS W OTH RESP MANIFEST (2) Rhabdomyolysis Code(s): M62.82 - RHABDOMYOLYSIS Qualifiers: Rhabdomyolysis type: non-traumatic Qualified Code(s): M62.82 - Rhabdomyolysis (3) ELLIE (acute kidney injury) Code(s): N17.9 - ACUTE KIDNEY FAILURE, UNSPECIFIED
[2016-09-08] MEDS ORDERED: PT OWN MED DRAWER 7, Y5N ONE ×2 (09:25→20:55)
[2016-09-08] MEDS: LORATADINE 10 MG TABLET PO SCH (09:47)
[2016-09-08] MEDS: VALSARTAN 160 MG TABLET (UD) PO SCH (09:47)
[2016-09-08] MEDS: OSELTAMIVIR PHOSPHATE 75 MG CAPSULE PO SCH ×2 (09:48→21:10)
[2016-09-08] MEDS: SODIUM CHLORIDE 0.9%/KCL 1,000 ML IV SCH ×3 (09:48→21:09)
[2016-09-08] MEDS: cefTRIAXone 1 GM/50 ML BAG (PRE-DOCKED) IVPB SCH (09:48)
[2016-09-08] MEDS: prednisoLONE ACETATE 1% OPHTH SUSP 5 ML BOTTLE OU SCH ×2 (09:49→21:10)
--- NOTE | 2016-09-08 12:31 | PN ---
Progress Note, Physician History of Present Illness: pulmonary alert,more congested today,+cough,+wheezing - Current Medication List Current Medications: Active Medications Albuterol Sulfate (Ventolin 0.083% Nebulizer Soln -) 1 amp NEB Q4H PRN PRN Reason: SHORT OF BREATH/WHEEZING Last Admin: 09/08/16 06:48 Dose: 1 amp Ceftriaxone Sodium (Rocephin 1gm Ivpb (Pre-Docked)) 1 gm IVPB DAILY [facility] PRN Reason: Protocol Last Admin: 09/08/16 09:48 Dose: 1 gm Guaifenesin (Diabetic Tussin Dm -) 5 ml PO Q4H PRN PRN Reason: COUGH Last Admin: 09/08/16 00:40 Dose: 5 ml Potassium Chloride/Sodium Chloride (Ns+20 Meq Kcl -) 1,000 mls @ 100 mls/hr IV ASDIR [facility] Last Admin: 09/08/16 09:48 Dose: 100 mls/hr Loratadine (Claritin -) 10 mg PO DAILY [facility] Last Admin: 09/08/16 09:47 Dose: Not Given Oseltamivir Phosphate (Tamiflu -) 75 mg PO BID [facility] Stop: 09/13/16 09:59 Last Admin: 09/08/16 09:48 Dose: 75 mg Prednisolone Acetate (Pred Forte 1% -) 1 drop OU BID [facility] Last Admin: 09/08/16 09:49 Dose: 1 drop Valsartan (Diovan -) 160 mg PO DAILY [facility] Last Admin: 09/08/16 09:47 Dose: 160 mg - Objective Vital Signs: Vital Signs Temperature 98.6 F 09/08/16 10:00 Pulse Rate 101 H 09/08/16 11:44 Respiratory Rate 20 09/08/16 10:00 Blood Pressure 145/72 09/08/16 10:00 O2 Sat by Pulse Oximetry (%) 95 09/08/16 11:44 Constitutional: Yes: Well Nourished, Calm Eyes: Yes: WNL HENT: Yes: WNL Neck: Yes: WNL Cardiovascular: Yes: Regular Rate and Rhythm, S1, S2 Respiratory: Yes: Wheezes (scattered wheezes) Gastrointestinal: Yes: Normal Bowel Sounds, Soft Musculoskeletal: Yes: Muscle Weakness Edema: Yes Labs: CBC, BMP 09/07/16 06:20 09/07/16 06:20 INR, PTT INR 1.93 (0.82-1.09) H 09/07/16 06:20 Assessment/Plan Problem List - Problems (1) Influenza A Code(s): J10.1 - FLU DUE TO OTH IDENT INFLUENZA VIRUS W OTH RESP MANIFEST (2) Sepsis Code(s): A41.9 - SEPSIS, UNSPECIFIED ORGANISM Qualifiers: Sepsis type: sepsis due to unspecified organism Qualified Code(s): A41.9 - Sepsis, unspecified organism (3) ELLIE (acute kidney injury) Code(s): N17.9 - ACUTE KIDNEY FAILURE, UNSPECIFIED (4) Rhabdomyolysis Code(s): M62.82 - RHABDOMYOLYSIS Qualifiers: Rhabdomyolysis type: non-traumatic Qualified Code(s): M62.82 - Rhabdomyolysis (5) Lactic acidosis Code(s): E87.2 - ACIDOSIS (6) Atelectasis of left lung Code(s): J98.11 - ATELECTASIS Assessment/Plan Influenza A Sepsis Acute Kidney Injury improving Lactic Acidosis resolved Rhabdomyolysis h/o PE - continue tamiflu - solumedrol x 24 hrs - IVF - monitor urine output, creatinine - monitor CPK - O2 to keep SpO2 >90% - inhaled bronchodilators - continue anticoagulation DR LIND
[2016-09-08 13:54] LABS: INR 2.03 (0.82-1.09); PROTHROMBIN TIME (PATIENT) 22.7 SEC (9.98-11.88)
[2016-09-08] MEDS: methylPREDNISolone NA SUCC 40 MG/1 ML VIAL IVPB SCH ×2 (13:58→21:09)
--- NOTE | 2016-09-08 15:26 | PN ---
Progress Note (short form) - Note Progress Note: cover for David/Din Current Medications Albuterol Sulfate (Ventolin 0.083% Nebulizer Soln -) 1 amp NEB Q4H PRN PRN Reason: SHORT OF BREATH/WHEEZING Last Admin: 09/08/16 06:48 Dose: 1 amp Ceftriaxone Sodium (Rocephin 1gm Ivpb (Pre-Docked)) 1 gm IVPB DAILY [facility] PRN Reason: Protocol Last Admin: 09/08/16 09:48 Dose: 1 gm Guaifenesin (Diabetic Tussin Dm -) 5 ml PO Q4H PRN PRN Reason: COUGH Last Admin: 09/08/16 00:40 Dose: 5 ml Potassium Chloride/Sodium Chloride (Ns+20 Meq Kcl -) 1,000 mls @ 100 mls/hr IV ASDIR [facility] Last Admin: 09/08/16 12:45 Dose: Not Given Loratadine (Claritin -) 10 mg PO DAILY [facility] Last Admin: 09/08/16 09:47 Dose: Not Given Methylprednisolone Sodium Succinate (Solu-Medrol -) 40 mg IVPB Q6H-IV [facility] Last Admin: 09/08/16 13:58 Dose: 40 mg Oseltamivir Phosphate (Tamiflu -) 75 mg PO BID [facility] Stop: 09/13/16 09:59 Last Admin: 09/08/16 09:48 Dose: 75 mg Prednisolone Acetate (Pred Forte 1% -) 1 drop OU BID [facility] Last Admin: 09/08/16 09:49 Dose: 1 drop Valsartan (Diovan -) 160 mg PO DAILY [facility] Last Admin: 09/08/16 09:47 Dose: 160 mg Warfarin Sodium (Coumadin -) 5 mg PO DAILY@1800 [facility] Laboratory Results - last 24 hr 09/08/16 09/08/16 09/08/16 12:50 12:50 12:50 INR 2.03 H Creatine Kinase 508 H D Cancelled B-Natriuretic Peptide 2096.97 H Vital Signs Temperature 98.6 F 09/08/16 10:00 Pulse Rate 101 H 09/08/16 11:44 Respiratory Rate 20 09/08/16 10:00 Blood Pressure 145/72 09/08/16 10:00 O2 Sat by Pulse Oximetry (%) 95 09/08/16 11:44 CC: cough ````````````````````` skin--nevus on chest; no obvious rash/cyanosis appreciated eyes--eomi, non injected neck--voice clear; no masses lungs--BS distant but unlabored heart--irreg abd--obese, soft, NT ext--non pitting edema neuro--alert, fully lucid & coherent; good memory & insight; no focal deficits appreciated ``````````````````````````````````````````` Summ > Cough--bilat infiltrates described on CXR; which probably is causing her cough. Now started on IV Roceph; and IV steroids, as well as Harsh DM. > Htn--BP in good range > Leukopenia--2nd viral syndrome; cehck CBC in Am > ATF--INR in therapeutic range; cont Warft at 5mg; check INR daily and adjust as needed. > Rhabdo--CK down trending; renal function improved. > Low Potassium--replenish as needed. ~~~~~~~~~~~~~~~~~~~~~~~~~~~~ Dr Garcia
[2016-09-08] MEDS ORDERED: WARFARIN NA 5 MG TABLET (UD) PO SCH (18:00)
[2016-09-09] MEDS: methylPREDNISolone NA SUCC 40 MG/1 ML VIAL IVPB SCH ×4 (02:02→21:29)
[2016-09-09 07:02] LABS: MCH 30.3 pg (25.7-33.7); MCHC 32.8 g/dl (32.0-36.0); MEAN CELL VOLUME 92.2 fl (80-96); MEAN PLT VOLUME 8.3 fl (7.5-11.1); PLATELET COUNT 124 K/MM3 (134-434); RDW 14.8 % (11.6-15.6); WHITE BLOOD COUNT 4.7 K/mm3 (4.0-10.0)
[2016-09-09 07:19] LABS: CALCIUM 7.8 mg/dL (8.5-10.1); CREATININE 0.9 mg/dL (0.55-1.02)
[2016-09-09 07:39] LABS: INR 3.02 (0.82-1.09)
[2016-09-09] MEDS ORDERED: PT OWN MED DRAWER 7, Y5N ONE ×2 (11:18→21:24)
[2016-09-09] MEDS: ALBUTEROL SO4 0.083% IH SOL 2.5 MG/3 ML VIAL.NEB. NEB PRN (11:30)
[2016-09-09] MEDS: prednisoLONE ACETATE 1% OPHTH SUSP 5 ML BOTTLE OU SCH ×2 (11:47→21:29)
[2016-09-09] MEDS: VALSARTAN 160 MG TABLET (UD) PO SCH (11:47)
[2016-09-09] MEDS: LORATADINE 10 MG TABLET PO SCH (11:47)
[2016-09-09] MEDS: SODIUM CHLORIDE 0.9%/KCL 1,000 ML IV SCH (11:48)
[2016-09-09] MEDS: cefTRIAXone 1 GM/50 ML BAG (PRE-DOCKED) IVPB SCH (11:48)
[2016-09-09] MEDS: OSELTAMIVIR PHOSPHATE 75 MG CAPSULE PO SCH ×2 (11:48→21:29)
--- NOTE | 2016-09-09 11:50 | PN ---
Progress Note, Physician History of Present Illness: pulmonary alert,feeling better,less dyspneic - Current Medication List Current Medications: Active Medications Albuterol Sulfate (Ventolin 0.083% Nebulizer Soln -) 1 amp NEB Q4H PRN PRN Reason: SHORT OF BREATH/WHEEZING Last Admin: 09/09/16 11:30 Dose: 1 amp Ceftriaxone Sodium (Rocephin 1gm Ivpb (Pre-Docked)) 1 gm IVPB DAILY [facility] PRN Reason: Protocol Last Admin: 09/08/16 09:48 Dose: 1 gm Guaifenesin (Diabetic Tussin Dm -) 5 ml PO Q4H PRN PRN Reason: COUGH Last Admin: 09/08/16 00:40 Dose: 5 ml Potassium Chloride/Sodium Chloride (Ns+20 Meq Kcl -) 1,000 mls @ 100 mls/hr IV ASDIR [facility] Last Admin: 09/08/16 21:09 Dose: 100 mls/hr Loratadine (Claritin -) 10 mg PO DAILY [facility] Last Admin: 09/08/16 09:47 Dose: Not Given Methylprednisolone Sodium Succinate (Solu-Medrol -) 40 mg IVPB Q6H-IV [facility] Last Admin: 09/09/16 02:02 Dose: 40 mg Oseltamivir Phosphate (Tamiflu -) 75 mg PO BID [facility] Stop: 09/13/16 09:59 Last Admin: 09/08/16 21:10 Dose: 75 mg Prednisolone Acetate (Pred Forte 1% -) 1 drop OU BID [facility] Last Admin: 09/08/16 21:10 Dose: 1 drop Valsartan (Diovan -) 160 mg PO DAILY [facility] Last Admin: 09/08/16 09:47 Dose: 160 mg Warfarin Sodium (Coumadin -) 5 mg PO DAILY@1800 [facility] Last Admin: 09/08/16 18:02 Dose: 5 mg - Objective Vital Signs: Vital Signs Temperature 97.5 F L 09/09/16 06:00 Pulse Rate 84 09/09/16 06:00 Respiratory Rate 18 09/09/16 06:00 Blood Pressure 140/60 09/09/16 06:00 O2 Sat by Pulse Oximetry (%) 97 09/08/16 21:00 Constitutional: Yes: Well Nourished, Calm Eyes: Yes: WNL HENT: Yes: Nasal Congestion Neck: Yes: WNL Cardiovascular: Yes: Regular Rate and Rhythm, S1, S2 Respiratory: Yes: Wheezes (scattered fifi wheezes) Gastrointestinal: Yes: Normal Bowel Sounds, Soft Extremities: Yes: WNL Edema: Yes Labs: CBC, BMP 09/09/16 05:35 09/09/16 05:35 INR, PTT INR 3.02 (0.82-1.09) H D 09/09/16 05:35 Assessment/Plan Problem List - Problems (1) Influenza A Code(s): J10.1 - FLU DUE TO OTH IDENT INFLUENZA VIRUS W OTH RESP MANIFEST (2) Sepsis Code(s): A41.9 - SEPSIS, UNSPECIFIED ORGANISM Qualifiers: Sepsis type: sepsis due to unspecified organism Qualified Code(s): A41.9 - Sepsis, unspecified organism (3) ELLIE (acute kidney injury) Code(s): N17.9 - ACUTE KIDNEY FAILURE, UNSPECIFIED (4) Rhabdomyolysis Code(s): M62.82 - RHABDOMYOLYSIS Qualifiers: Rhabdomyolysis type: non-traumatic Qualified Code(s): M62.82 - Rhabdomyolysis (5) Lactic acidosis Code(s): E87.2 - ACIDOSIS (6) Atelectasis of left lung Code(s): J98.11 - ATELECTASIS Assessment/Plan Influenza A Sepsis Acute Kidney Injury improving Lactic Acidosis resolved Rhabdomyolysis h/o PE ?chf - continue tamiflu - continue solumedrol - IVF - monitor urine output, creatinine - monitor CPK - O2 to keep SpO2 >90% - inhaled bronchodilators - continue anticoagulation DR LIND
--- NOTE | 2016-09-09 12:06 | PN ---
Progress Note (short form) - Note Progress Note: less cough yellow sputum jittery from the steroids Vital Signs Period Temp Pulse Resp BP Sys/Horowitz Pulse Ox Last 24 Hr 97.5 F-99.5 F 75-108 18-22 125-159/60-93 97 cor-rrr lungs scattered rhonchi abd soft,nt ext no edema CBC, BMP 09/09/16 05:35 09/09/16 05:35 Microbiology 09/04/16 17:01 Blood Culture - Preliminary Blood - Peripheral Venous NO GROWTH OBTAINED AFTER 96 HOURS, INCUBATION TO CONTINUE FOR 1 DAYS. 09/04/16 17:01 Blood Culture - Preliminary Blood - Peripheral Venous NO GROWTH OBTAINED AFTER 96 HOURS, INCUBATION TO CONTINUE FOR 1 DAYS. Current Medications Albuterol Sulfate (Ventolin 0.083% Nebulizer Soln -) 1 amp NEB Q4H PRN PRN Reason: SHORT OF BREATH/WHEEZING Last Admin: 09/09/16 11:30 Dose: 1 amp Ceftriaxone Sodium (Rocephin 1gm Ivpb (Pre-Docked)) 1 gm IVPB DAILY [facility] PRN Reason: Protocol Last Admin: 09/08/16 09:48 Dose: 1 gm Guaifenesin (Diabetic Tussin Dm -) 5 ml PO Q4H PRN PRN Reason: COUGH Last Admin: 09/08/16 00:40 Dose: 5 ml Potassium Chloride/Sodium Chloride (Ns+20 Meq Kcl -) 1,000 mls @ 100 mls/hr IV [facility] Last Admin: 09/08/16 21:09 Dose: 100 mls/hr Loratadine (Claritin -) 10 mg PO DAILY [facility] Last Admin: 09/08/16 09:47 Dose: Not Given Methylprednisolone Sodium Succinate (Solu-Medrol -) 40 mg IVPB Q6H-IV [facility] Last Admin: 09/09/16 02:02 Dose: 40 mg Oseltamivir Phosphate (Tamiflu -) 75 mg PO BID [facility] Stop: 09/13/16 09:59 Last Admin: 09/08/16 21:10 Dose: 75 mg Prednisolone Acetate (Pred Forte 1% -) 1 drop OU BID [facility] Last Admin: 09/08/16 21:10 Dose: 1 drop Valsartan (Diovan -) 160 mg PO DAILY [facility] Last Admin: 09/08/16 09:47 Dose: 160 mg Warfarin Sodium (Coumadin -) 5 mg PO DAILY@1800 [facility] Last Admin: 09/08/16 18:02 Dose: 5 mg a/p influenza A-continue tamiflu rhabdomyolysis resolving consider d/c ivf rocephin #2 for possible pneumonia sputum culture clinically improved Problem List - Problems (1) Influenza A Code(s): J10.1 - FLU DUE TO OTH IDENT INFLUENZA VIRUS W OTH RESP MANIFEST (2) Rhabdomyolysis Code(s): M62.82 - RHABDOMYOLYSIS Qualifiers: Rhabdomyolysis type: non-traumatic Qualified Code(s): M62.82 - Rhabdomyolysis (3) ELLIE (acute kidney injury) Code(s): N17.9 - ACUTE KIDNEY FAILURE, UNSPECIFIED
--- NOTE | 2016-09-09 12:41 | PN ---
Progress Note (short form) - Note Progress Note: Chief Complaint: sob,cough History of Present Illness: was sob and cough improving, but persist still coughing a lot; no cp, palpit, dizziness. - Current Medications Albuterol Sulfate (Ventolin 0.083% Nebulizer Soln -) 1 amp NEB Q4H PRN PRN Reason: SHORT OF BREATH/WHEEZING Last Admin: 09/09/16 11:30 Dose: 1 amp Ceftriaxone Sodium (Rocephin 1gm Ivpb (Pre-Docked)) 1 gm IVPB DAILY [facility] PRN Reason: Protocol Last Admin: 09/09/16 11:48 Dose: 1 gm Guaifenesin (Diabetic Tussin Dm -) 5 ml PO Q4H PRN PRN Reason: COUGH Last Admin: 09/08/16 00:40 Dose: 5 ml Potassium Chloride/Sodium Chloride (Ns+20 Meq Kcl -) 1,000 mls @ 100 mls/hr IV ASDIR [facility] Last Admin: 09/09/16 11:48 Dose: 100 mls/hr Loratadine (Claritin -) 10 mg PO DAILY [facility] Last Admin: 09/09/16 11:47 Dose: 10 mg Methylprednisolone Sodium Succinate (Solu-Medrol -) 40 mg IVPB Q6H-IV [facility] Last Admin: 09/09/16 11:47 Dose: 40 mg Oseltamivir Phosphate (Tamiflu -) 75 mg PO BID [facility] Stop: 09/13/16 09:59 Last Admin: 09/09/16 11:48 Dose: 75 mg Prednisolone Acetate (Pred Forte 1% -) 1 drop OU BID [facility] Last Admin: 09/09/16 11:47 Dose: 1 drop Valsartan (Diovan -) 160 mg PO DAILY [facility] Last Admin: 09/09/16 11:47 Dose: 160 mg Warfarin Sodium (Coumadin -) 5 mg PO DAILY@1800 [facility] Last Admin: 09/08/16 18:02 Dose: 5 mg Vital Signs - 24 hr 09/08/16 09/08/16 09/08/16 14:00 18:00 21:00 Temperature 98.1 F 99.5 F Pulse Rate 108 H 108 H Respiratory 20 22 20 Rate Blood Pressure 125/74 159/93 O2 Sat by Pulse 97 Oximetry (%) 09/08/16 09/09/16 09/09/16 22:00 02:00 06:00 Temperature 98.6 F 97.8 F 97.5 F L Pulse Rate 75 83 84 Respiratory 20 18 18 Rate Blood Pressure 132/92 150/90 140/60 O2 Sat by Pulse Oximetry (%) Intake & Output 09/07/16 09/08/16 09/09/16 09/10/16 07:59 07:59 07:59 07:59 Intake Total 2100 2970 2450 Output Total 420 Balance 2099 2969 2029 Constitutional: Yes: No Distress, Calm, Obese Cardiovascular: Yes: Regular Rate and Rhythm, S1, S2. No: JVD, Gallop, Murmur Respiratory: Yes: Regular, Rhonchi, Wheezes. No: Accessory Muscle Use Extremities: Yes: Cold Edema: Yes (mild nonpitting) Neurological: Yes: Alert, Oriented Psychiatric: No: Agitated Labs: CBC, BMP 09/09/16 05:35 09/09/16 05:35 Laboratory Tests 09/09/16 05:35 INR 3.02 H D tele: sinus with sinus tach, Assessment/Plan a/p: 81 f hx hld, htn, PE (approx 4 yrs ago, on ac since), here with fever, cough. flu: -abx, supportive care per PMD/ID htn: -stable on home meds PE: -coumadin per inr--defer to primary team. 3 today. elevated troponin: -intermediat-range troponin elevation with flat trend and normal ckmb, not consistent with acs, likely due to delores/infection -Echo done with overall normal LV function (noted septal W paradoxical motion due to conduction abnormality) hld: -currently off stati. reasonable for now, can be reevaluated as outpatient * would stop IVF with potassium, patient becoming hyperkalemic. * patient states her [employer] professor is Dr. guillaume, will confirm.
[2016-09-09] MEDS ORDERED: SODIUM CHLORIDE 0.9%/KCL 1,000 ML IV SCH (15:16)
--- NOTE | 2016-09-09 15:41 | PN ---
Progress Note (short form) - Note Progress Note: ^^^^^^^^^^^^^^^^^^^^^^^^^ cover for Amanda Hernandez/cathy Current Medications Albuterol Sulfate (Ventolin 0.083% Nebulizer Soln -) 1 amp NEB Q4H PRN PRN Reason: SHORT OF BREATH/WHEEZING Last Admin: 09/09/16 11:30 Dose: 1 amp Ceftriaxone Sodium (Rocephin 1gm Ivpb (Pre-Docked)) 1 gm IVPB DAILY [facility] PRN Reason: Protocol Last Admin: 09/09/16 11:48 Dose: 1 gm Guaifenesin (Diabetic Tussin Dm -) 5 ml PO Q4H PRN PRN Reason: COUGH Last Admin: 09/08/16 00:40 Dose: 5 ml Sodium Chloride (1/2 Normal Saline) 1,000 mls @ 50 mls/hr IV ASDIR [facility] Stop: 09/10/16 15:34 Loratadine (Claritin -) 10 mg PO DAILY [facility] Last Admin: 09/09/16 11:47 Dose: 10 mg Methylprednisolone Sodium Succinate (Solu-Medrol -) 40 mg IVPB Q6H-IV [facility] Last Admin: 09/09/16 11:47 Dose: 40 mg Oseltamivir Phosphate (Tamiflu -) 75 mg PO BID [facility] Stop: 09/13/16 09:59 Last Admin: 09/09/16 11:48 Dose: 75 mg Prednisolone Acetate (Pred Forte 1% -) 1 drop OU BID [facility] Last Admin: 09/09/16 11:47 Dose: 1 drop Valsartan (Diovan -) 160 mg PO DAILY [facility] Last Admin: 09/09/16 11:47 Dose: 160 mg Warfarin Sodium (Coumadin -) 4 mg PO DAILY@1800 [facility] Laboratory Results - last 24 hr 09/08/16 09/09/16 09/09/16 12:50 05:35 05:35 WBC 4.7 D RBC 3.80 Hgb 11.5 Hct 35.0 MCV 92.2 MCHC 32.8 RDW 14.8 Plt Count 124 L MPV 8.3 INR Sodium 145 Potassium 5.0 D Chloride 112 H Carbon Dioxide 27 Anion Gap 6 L BUN 16 D Creatinine 0.9 Random Glucose 148 H D Calcium 7.8 L Creatine Kinase 405 H D CK-MB (CK-2) 5.233 H 09/09/16 09/09/16 05:35 05:35 WBC RBC Hgb Hct MCV MCHC RDW Plt Count MPV INR 3.02 H D Sodium Potassium Chloride Carbon Dioxide Anion Gap BUN Creatinine Random Glucose Calcium Creatine Kinase Cancelled CK-MB (CK-2) Vital Signs Temperature 98.2 F 09/09/16 14:00 Pulse Rate 91 H 09/09/16 14:00 Respiratory Rate 18 09/09/16 14:00 Blood Pressure 127/55 09/09/16 14:00 O2 Sat by Pulse Oximetry (%) 97 09/08/16 21:00 CC; still coughing but less so ~~~~~~~~~~~~~~~~~~~~~~~ skin--dry, cool to touch eyes--midline face--no droop lungs--bilat rhonchi, but better aeration heart--RR abd--benign ext--degen changes; no edema neuro--fully alert & lucid; in NAD `````````````````````````````````` Summ > Cough--bilat infiltrates described on CXR; now on IV Roceph; and IV steroids ( cut back), as well as Harsh DM. Check CXR in AM > Htn--BP in good range > Leukopenia--2nd viral syndrome; now back up, ? due to steroids > Hx PE--INR has doubled to above therap; will hold a/c today; cont Warf at 4mg as of 09/10/16; check INR daily and adjust as needed. > Rhabdo--CK down trending; cut IVF in 07/14. > Gait impaired--not new ~~~~~~~~~~~~~~~~~~~~~~~~~~~~ Dr Garcia
[2016-09-09] MEDS ORDERED: SODIUM CHLORIDE 0.45% 1,000 ML IV SCH (15:45)
[2016-09-10] MEDS: methylPREDNISolone NA SUCC 40 MG/1 ML VIAL IVPB SCH ×4 (02:06→18:08)
[2016-09-10 07:48] LABS: MCH 29.8 pg (25.7-33.7); MCHC 32.5 g/dl (32.0-36.0); MEAN CELL VOLUME 91.9 fl (80-96); MEAN PLT VOLUME 8.4 fl (7.5-11.1); PLATELET COUNT 158 K/MM3 (134-434); RDW 15.5 % (11.6-15.6); WHITE BLOOD COUNT 7.9 K/mm3 (4.0-10.0)
[2016-09-10 08:03] LABS: INR 3.95 (0.82-1.09); PROTHROMBIN TIME (PATIENT) 44.7 SEC (9.98-11.88)
[2016-09-10 08:18] LABS: CALCIUM 7.9 mg/dL (8.5-10.1); CREATININE 0.9 mg/dL (0.55-1.02)
--- NOTE | 2016-09-10 11:17 | PN ---
Progress Note, Physician History of Present Illness: 81 f hx hld, htn, PE (approx 4 yrs ago, on ac since), here with fever, cough. Had been feeling well until about 2 wks ago when noticed cough. Went away on own but then over past 2 days cough returned and felt subjective chills/fever so came to hospital. No cp, sob, palps, dizzy, pnd, orthopnea, le edema. Also with mylagias. No hx hrt dz per pt. Found to have the flu here. - Current Medication List Current Medications: Active Medications Albuterol Sulfate (Ventolin 0.083% Nebulizer Soln -) 1 amp NEB Q4H PRN PRN Reason: SHORT OF BREATH/WHEEZING Last Admin: 09/09/16 11:30 Dose: 1 amp Ceftriaxone Sodium (Rocephin 1gm Ivpb (Pre-Docked)) 1 gm IVPB DAILY [facility] PRN Reason: Protocol Last Admin: 09/09/16 11:48 Dose: 1 gm Guaifenesin (Diabetic Tussin Dm -) 5 ml PO Q4H PRN PRN Reason: COUGH Last Admin: 09/08/16 00:40 Dose: 5 ml Sodium Chloride (1/2 Normal Saline) 1,000 mls @ 50 mls/hr IV ASDIR [facility] Stop: 09/10/16 15:34 Last Admin: 09/09/16 18:29 Dose: 50 mls/hr Loratadine (Claritin -) 10 mg PO DAILY [facility] Last Admin: 09/09/16 11:47 Dose: 10 mg Methylprednisolone Sodium Succinate (Solu-Medrol -) 40 mg IVPB Q6H-IV [facility] Last Admin: 09/10/16 02:06 Dose: 40 mg Oseltamivir Phosphate (Tamiflu -) 75 mg PO BID [facility] Stop: 09/13/16 09:59 Last Admin: 09/09/16 21:29 Dose: 75 mg Prednisolone Acetate (Pred Forte 1% -) 1 drop OU BID [facility] Last Admin: 09/09/16 21:29 Dose: 1 drop Valsartan (Diovan -) 160 mg PO DAILY [facility] Last Admin: 09/09/16 11:47 Dose: 160 mg Warfarin Sodium (Coumadin -) 4 mg PO DAILY@1800 [facility] - Objective Vital Signs: Vital Signs Temperature 97.8 F 09/10/16 06:00 Pulse Rate 64 09/10/16 06:00 Respiratory Rate 18 09/10/16 06:00 Blood Pressure 133/78 09/10/16 06:00 O2 Sat by Pulse Oximetry (%) 97 09/08/16 21:00 Eyes: Yes: WNL, Conjunctiva Clear, EOM Intact HENT: Yes: WNL, Atraumatic, Normocephalic Neck: Yes: WNL, Supple, Trachea Midline Cardiovascular: Yes: WNL, Regular Rate and Rhythm Respiratory: Yes: WNL, Regular, CTA Bilaterally Gastrointestinal: Yes: WNL, Normal Bowel Sounds Genitourinary: Yes: WNL Musculoskeletal: Yes: WNL Extremities: Yes: WNL Edema: No Integumentary: Yes: WNL Neurological: Yes: WNL, Alert, Oriented ...Motor Strength: WNL Psychiatric: Yes: WNL Labs: CBC, BMP 09/10/16 06:00 09/10/16 06:00 INR, PTT INR 3.95 (0.82-1.09) H D 09/10/16 06:00 Assessment/Plan a/p: 81 f hx hld, htn, PE (approx 4 yrs ago, on ac since), here with fever, cough. flu: -abx, supportive care per PMD/ID htn: -stable on home meds PE: -coumadin per inr--defer to primary team. 3 today. elevated troponin: -intermediat-range troponin elevation with flat trend and normal ckmb, not consistent with acs, likely due to delores/infection -Echo done with overall normal LV function (noted septal W paradoxical motion due to conduction abnormality) hld: -currently off statins can be reevaluated as outpatient
[2016-09-10] MEDS: LORATADINE 10 MG TABLET PO SCH (11:18)
[2016-09-10] MEDS: cefTRIAXone 1 GM/50 ML BAG (PRE-DOCKED) IVPB SCH (11:19)
[2016-09-10] MEDS: VALSARTAN 160 MG TABLET (UD) PO SCH (11:19)
[2016-09-10] MEDS: prednisoLONE ACETATE 1% OPHTH SUSP 5 ML BOTTLE OU SCH ×2 (11:19→21:00)
[2016-09-10] MEDS: OSELTAMIVIR PHOSPHATE 75 MG CAPSULE PO SCH (11:20)
[2016-09-10] MEDS: ALBUTEROL SO4 0.083% IH SOL 2.5 MG/3 ML VIAL.NEB. NEB PRN (11:24)
--- NOTE | 2016-09-10 12:15 | PN ---
Progress Note (short form) - Note Progress Note: less cough yellow sputum- blood tinged Vital Signs Period Temp Pulse Resp BP Sys/Horowitz Pulse Ox Last 24 Hr 97.4 F-98.7 F 64-104 18-18 125-160/55-93 cor-rrr lungs decreased bs at bases abd soft,nt ext no edema CBC, BMP 09/10/16 06:00 09/10/16 06:00 Microbiology 09/08/16 17:30 Sputum - Expectorated Gram Stain - Final 09/08/16 17:30 Sputum - Expectorated Sputum Culture - Preliminary NORMAL RESPIRATORY JADE 09/04/16 17:01 Nasopharyngeal Swab Respiratory Virus Panel - Preliminary 09/04/16 17:01 Blood - Peripheral Venous Blood Culture - Final NO GROWTH AFTER 5 DAYS INCUBATION 09/04/16 17:01 Blood - Peripheral Venous Blood Culture - Final NO GROWTH AFTER 5 DAYS INCUBATION 09/08/16 17:30 Urine For Antigen Detection Legionella Antigen - Final 09/08/16 17:30 Urine For Antigen Detection Streptococcus pneumoniae Antigen (M - Final 09/05/16 04:15 Urine - Urine Clean Catch Urine Culture - Final Contaminated: Please Repeat 09/04/16 17:01 Nasopharyngeal Swab Influenza Types A,B Antigen (GENEVIEVE) - Final 09/04/16 17:01 Nasopharyngeal Swab - Final Current Medications Albuterol Sulfate (Ventolin 0.083% Nebulizer Soln -) 1 amp NEB Q4H PRN PRN Reason: SHORT OF BREATH/WHEEZING Last Admin: 09/10/16 11:24 Dose: 1 amp Ceftriaxone Sodium (Rocephin 1gm Ivpb (Pre-Docked)) 1 gm IVPB DAILY [facility] PRN Reason: Protocol Last Admin: 09/10/16 11:19 Dose: 1 gm Guaifenesin (Diabetic Tussin Dm -) 5 ml PO Q4H PRN PRN Reason: COUGH Last Admin: 09/08/16 00:40 Dose: 5 ml Sodium Chloride (1/2 Normal Saline) 1,000 mls @ 50 mls/hr IV ASDIR [facility] Stop: 09/10/16 15:34 Last Admin: 09/09/16 18:29 Dose: 50 mls/hr Loratadine (Claritin -) 10 mg PO DAILY [facility] Last Admin: 09/10/16 11:18 Dose: 10 mg Methylprednisolone Sodium Succinate (Solu-Medrol -) 40 mg IVPB Q6H-IV [facility] Last Admin: 09/10/16 09:18 Dose: 40 mg Oseltamivir Phosphate (Tamiflu -) 75 mg PO BID [facility] Stop: 09/13/16 09:59 Last Admin: 09/10/16 11:20 Dose: 75 mg Prednisolone Acetate (Pred Forte 1% -) 1 drop OU BID [facility] Last Admin: 09/10/16 11:19 Dose: 1 drop Valsartan (Diovan -) 160 mg PO DAILY [facility] Last Admin: 09/10/16 11:19 Dose: 160 mg Warfarin Sodium (Coumadin -) 4 mg PO DAILY@1800 [facility] a/p influenza A-d/c tamiflu, d/c isolation rhabdomyolysis resolving consider d/c ivf rocephin #3 for possible pneumonia-can switch to po ceftin sputum culture normal jade clinically improved Problem List - Problems (1) Influenza A Code(s): J10.1 - FLU DUE TO OTH IDENT INFLUENZA VIRUS W OTH RESP MANIFEST (2) Rhabdomyolysis Code(s): M62.82 - RHABDOMYOLYSIS Qualifiers: Rhabdomyolysis type: non-traumatic Qualified Code(s): M62.82 - Rhabdomyolysis (3) ELLIE (acute kidney injury) Code(s): N17.9 - ACUTE KIDNEY FAILURE, UNSPECIFIED
--- NOTE | 2016-09-10 12:48 | PN ---
Progress Note, Physician History of Present Illness: pulmonary alert,feeling better,less dyspneic - Current Medication List Current Medications: Active Medications Albuterol Sulfate (Ventolin 0.083% Nebulizer Soln -) 1 amp NEB Q4H PRN PRN Reason: SHORT OF BREATH/WHEEZING Last Admin: 09/10/16 11:24 Dose: 1 amp Ceftriaxone Sodium (Rocephin 1gm Ivpb (Pre-Docked)) 1 gm IVPB DAILY [facility] PRN Reason: Protocol Last Admin: 09/10/16 11:19 Dose: 1 gm Guaifenesin (Diabetic Tussin Dm -) 5 ml PO Q4H PRN PRN Reason: COUGH Last Admin: 09/08/16 00:40 Dose: 5 ml Sodium Chloride (1/2 Normal Saline) 1,000 mls @ 50 mls/hr IV ASDIR [facility] Stop: 09/10/16 15:34 Last Admin: 09/09/16 18:29 Dose: 50 mls/hr Loratadine (Claritin -) 10 mg PO DAILY [facility] Last Admin: 09/10/16 11:18 Dose: 10 mg Methylprednisolone Sodium Succinate (Solu-Medrol -) 40 mg IVPB Q6H-IV [facility] Last Admin: 09/10/16 09:18 Dose: 40 mg Prednisolone Acetate (Pred Forte 1% -) 1 drop OU BID [facility] Last Admin: 09/10/16 11:19 Dose: 1 drop Valsartan (Diovan -) 160 mg PO DAILY [facility] Last Admin: 09/10/16 11:19 Dose: 160 mg Warfarin Sodium (Coumadin -) 4 mg PO DAILY@1800 [facility] - Objective Vital Signs: Vital Signs Temperature 97.8 F 09/10/16 06:00 Pulse Rate 64 09/10/16 06:00 Respiratory Rate 18 09/10/16 06:00 Blood Pressure 133/78 09/10/16 06:00 O2 Sat by Pulse Oximetry (%) 97 09/08/16 21:00 Constitutional: Yes: Well Nourished, Calm Eyes: Yes: WNL HENT: Yes: WNL Neck: Yes: WNL Cardiovascular: Yes: Regular Rate and Rhythm, S1, S2 Respiratory: Yes: Rhonchi (less rhonchi fifi) Gastrointestinal: Yes: Normal Bowel Sounds, Soft Extremities: Yes: WNL Edema: Yes Wound/Incision: Yes: Unapproximated Labs: CBC, BMP 09/10/16 06:00 09/10/16 06:00 INR, PTT INR 3.95 (0.82-1.09) H D 09/10/16 06:00 Assessment/Plan Problem List - Problems (1) Influenza A Code(s): J10.1 - FLU DUE TO OTH IDENT INFLUENZA VIRUS W OTH RESP MANIFEST (2) Sepsis Code(s): A41.9 - SEPSIS, UNSPECIFIED ORGANISM Qualifiers: Sepsis type: sepsis due to unspecified organism Qualified Code(s): A41.9 - Sepsis, unspecified organism (3) ELLIE (acute kidney injury) Code(s): N17.9 - ACUTE KIDNEY FAILURE, UNSPECIFIED (4) Rhabdomyolysis Code(s): M62.82 - RHABDOMYOLYSIS Qualifiers: Rhabdomyolysis type: non-traumatic Qualified Code(s): M62.82 - Rhabdomyolysis (5) Lactic acidosis Code(s): E87.2 - ACIDOSIS (6) Atelectasis of left lung Code(s): J98.11 - ATELECTASIS Assessment/Plan Influenza A Sepsis Acute Kidney Injury improved Lactic Acidosis resolved Rhabdomyolysis improving h/o PE ?chf - tamiflu completed - solumedrol taper - IVF - monitor urine output, creatinine - monitor CPK - O2 to keep SpO2 >90% - inhaled bronchodilators - continue anticoagulation DR LIND
--- NOTE | 2016-09-10 14:37 | PN ---
Progress Note (short form) - Note Progress Note: Current Medications Albuterol Sulfate (Ventolin 0.083% Nebulizer Soln -) 1 amp NEB Q4H PRN PRN Reason: SHORT OF BREATH/WHEEZING Last Admin: 09/10/16 11:24 Dose: 1 amp Ceftriaxone Sodium (Rocephin 1gm Ivpb (Pre-Docked)) 1 gm IVPB DAILY [facility] PRN Reason: Protocol Last Admin: 09/10/16 11:19 Dose: 1 gm Guaifenesin (Diabetic Tussin Dm -) 5 ml PO Q4H PRN PRN Reason: COUGH Last Admin: 09/08/16 00:40 Dose: 5 ml Sodium Chloride (1/2 Normal Saline) 1,000 mls @ 50 mls/hr IV ASDIR [facility] Stop: 09/10/16 15:34 Last Admin: 09/09/16 18:29 Dose: 50 mls/hr Loratadine (Claritin -) 10 mg PO DAILY [facility] Last Admin: 09/10/16 11:18 Dose: 10 mg Methylprednisolone Sodium Succinate (Solu-Medrol -) 40 mg IVPB Q6H-IV [facility] Last Admin: 09/10/16 09:18 Dose: 40 mg Prednisolone Acetate (Pred Forte 1% -) 1 drop OU BID [facility] Last Admin: 09/10/16 11:19 Dose: 1 drop Valsartan (Diovan -) 160 mg PO DAILY [facility] Last Admin: 09/10/16 11:19 Dose: 160 mg Warfarin Sodium (Coumadin -) 4 mg PO DAILY@1800 [facility] Last Vital Signs Temp Pulse Resp BP Pulse Ox 98.2 F 92 H 18 128/72 97 09/10/16 13:53 09/10/16 13:53 09/10/16 13:53 09/10/16 13:53 09/08/16 21:00 lungs good air entry, some rhonchi r lung rodriguez Heart reg abd soft ext gen edema CBC, BMP 09/10/16 06:00 09/10/16 06:00 IMP- influenza, completed tamiflu, can d/c isolation pna on rocephin iv rhinitis- claritinD or allegraD, not antihistamine alone, will d/c a/c- inr supertherapeutic hold coumadin copd lower ext weakness, chronic gait abn Plan- decrease solumedrol d/c claritin
[2016-09-10] MEDS: WARFARIN NA 2 MG TABLET (UD) PO SCH (18:07)
[2016-09-11] MEDS: methylPREDNISolone NA SUCC 40 MG/1 ML VIAL IVPB SCH ×2 (01:11→09:39)
[2016-09-11 07:18] LABS: INR 3.29 (0.82-1.09); PROTHROMBIN TIME (PATIENT) 37.1 SEC (9.98-11.88)
--- NOTE | 2016-09-11 09:14 | PN ---
Progress Note, Physician Chief Complaint: Pt A&Ox3; says she is fine, and just needs a decongestant. History of Present Illness: 81-year-old female presents to the ED with cough, fever, and generalized myalgia. Arthralgia/myalgia. Patient states symptoms began approximate 2 days ago and has worsened since this afternoon. Patient states no recent travel, recent illness, recent change in meds, chest pain, or vomiting. Patient with history of CAD, PE, hypertension, dyslipidemia. Timing/Duration: reports: yesterday Severity: reports: moderate Possible Cause: Yes: occasional episodes Modifying Factors: improves with: coughing Associated Symptoms: reports: cough, fever/chills - Current Medication List Current Medications: Active Medications Albuterol Sulfate (Ventolin 0.083% Nebulizer Soln -) 1 amp NEB Q4H PRN PRN Reason: SHORT OF BREATH/WHEEZING Last Admin: 09/10/16 11:24 Dose: 1 amp Ceftriaxone Sodium (Rocephin 1gm Ivpb (Pre-Docked)) 1 gm IVPB DAILY [facility] PRN Reason: Protocol Last Admin: 09/10/16 11:19 Dose: 1 gm Guaifenesin (Diabetic Tussin Dm -) 5 ml PO Q4H PRN PRN Reason: COUGH Last Admin: 09/08/16 00:40 Dose: 5 ml Methylprednisolone Sodium Succinate (Solu-Medrol -) 40 mg IVPB Q8H-IV [facility] Last Admin: 09/11/16 01:11 Dose: 40 mg Pneumococcal 13-Valent Conj Vacc (Prevnar 13 Syringe -) 0.5 ml IM .ONCE ONE Stop: 09/11/16 10:01 Prednisolone Acetate (Pred Forte 1% -) 1 drop OU BID [facility] Last Admin: 09/10/16 21:00 Dose: Not Given Valsartan (Diovan -) 160 mg PO DAILY [facility] Last Admin: 09/10/16 11:19 Dose: 160 mg Warfarin Sodium (Coumadin -) 4 mg PO DAILY@1800 [facility] Last Admin: 09/10/16 18:07 Dose: Not Given - Objective Vital Signs: Vital Signs Temperature 98.5 F 09/11/16 09:03 Pulse Rate 96 H 09/11/16 09:03 Respiratory Rate 20 09/11/16 09:03 Blood Pressure 148/85 09/11/16 09:03 O2 Sat by Pulse Oximetry (%) 95 09/11/16 09:00 Constitutional: Yes: No Distress, Anxious Eyes: Yes: WNL HENT: Yes: WNL Neck: Yes: WNL Respiratory: Yes: Regular Gastrointestinal: Yes: Soft ...Rectal Exam: Yes: Deferred Genitourinary: No: Anuria Breast(s): Yes: WNL Musculoskeletal: Yes: Muscle Weakness Extremities: Yes: Cool Edema: No Peripheral Pulses WNL: Yes Integumentary: Yes: WNL Neurological: Yes: Alert, Oriented, Weakness Psychiatric: Yes: Alert, Oriented Labs: CBC, BMP 09/10/16 06:00 09/10/16 06:00 INR, PTT INR 3.29 (0.82-1.09) H 09/11/16 05:35 Problem List - Problems (1) Atelectasis of left lung Code(s): J98.11 - ATELECTASIS (2) Influenza A Assessment/Plan: finished treatment Code(s): J10.1 - FLU DUE TO OTH IDENT INFLUENZA VIRUS W OTH RESP MANIFEST (3) Pulmonary embolism Assessment/Plan: on warfarin; keep INR 2-3 Code(s): I26.99 - OTHER PULMONARY EMBOLISM WITHOUT ACUTE COR PULMONALE (4) Tachycardia Assessment/Plan: Pt is tachycardic on minimal exertion; F/u AF. (On lifelong warfarin for PE already). Normal LVEF. Start diltiazem CD 120 mg daily for HTN and HR. Code(s): R00.0 - TACHYCARDIA, UNSPECIFIED
[2016-09-11] MEDS: VALSARTAN 160 MG TABLET (UD) PO SCH (09:39)
[2016-09-11] MEDS: prednisoLONE ACETATE 1% OPHTH SUSP 5 ML BOTTLE OU SCH ×2 (09:40→21:02)
[2016-09-11] MEDS: cefTRIAXone 1 GM/50 ML BAG (PRE-DOCKED) IVPB SCH (09:40)
[2016-09-11] MEDS ORDERED: PNEUMOC 13-VAL CONJ-DIP CRM/PF 0.5 ML DISP.SYRIN IM ONE (10:00)
[2016-09-11] MEDS: guaiFENesin/D-M SUGAR-FREE/ACLHOL-FREE 118 ML BOTTLE PO PRN (10:23)
--- NOTE | 2016-09-11 11:29 | PN ---
Progress Note, Physician History of Present Illness: pulmonary alert,oob-chair,-cp,-sob - Current Medication List Current Medications: Active Medications Albuterol Sulfate (Ventolin 0.083% Nebulizer Soln -) 1 amp NEB Q4H PRN PRN Reason: SHORT OF BREATH/WHEEZING Last Admin: 09/10/16 11:24 Dose: 1 amp Ceftriaxone Sodium (Rocephin 1gm Ivpb (Pre-Docked)) 1 gm IVPB DAILY [facility] PRN Reason: Protocol Last Admin: 09/11/16 09:40 Dose: 1 gm Diltiazem HCl (Cardizem Cd -) 120 mg PO DAILY [facility] Last Admin: 09/11/16 10:42 Dose: 120 mg Guaifenesin (Diabetic Tussin Dm -) 5 ml PO Q4H PRN PRN Reason: COUGH Last Admin: 09/08/16 00:40 Dose: 5 ml Methylprednisolone Sodium Succinate (Solu-Medrol -) 40 mg IVPB Q8H-IV [facility] Last Admin: 09/11/16 09:39 Dose: 40 mg Prednisolone Acetate (Pred Forte 1% -) 1 drop OU BID [facility] Last Admin: 09/11/16 09:40 Dose: 1 drop Valsartan (Diovan -) 160 mg PO DAILY [facility] Last Admin: 09/11/16 09:39 Dose: 160 mg Warfarin Sodium (Coumadin -) 4 mg PO DAILY@1800 [facility] Last Admin: 09/10/16 18:07 Dose: Not Given - Objective Vital Signs: Vital Signs Temperature 98.5 F 09/11/16 09:03 Pulse Rate 96 H 09/11/16 09:03 Respiratory Rate 20 09/11/16 09:03 Blood Pressure 148/85 09/11/16 09:03 O2 Sat by Pulse Oximetry (%) 95 09/11/16 09:00 Constitutional: Yes: Well Nourished, Calm Eyes: Yes: WNL HENT: Yes: WNL Neck: Yes: WNL Cardiovascular: Yes: Regular Rate and Rhythm, S1 Respiratory: Yes: CTA Bilaterally Gastrointestinal: Yes: WNL Musculoskeletal: Yes: WNL Extremities: Yes: WNL Edema: Yes Labs: CBC, BMP 09/10/16 06:00 09/10/16 06:00 INR, PTT INR 3.29 (0.82-1.09) H 09/11/16 05:35 - ....Imaging Chest X-ray: Report Reviewed, Image Reviewed Assessment/Plan Problem List - Problems (1) Influenza A Code(s): J10.1 - FLU DUE TO OTH IDENT INFLUENZA VIRUS W OTH RESP MANIFEST (2) Sepsis Code(s): A41.9 - SEPSIS, UNSPECIFIED ORGANISM Qualifiers: Sepsis type: sepsis due to unspecified organism Qualified Code(s): A41.9 - Sepsis, unspecified organism (3) ELLIE (acute kidney injury) Code(s): N17.9 - ACUTE KIDNEY FAILURE, UNSPECIFIED (4) Rhabdomyolysis Code(s): M62.82 - RHABDOMYOLYSIS Qualifiers: Rhabdomyolysis type: non-traumatic Qualified Code(s): M62.82 - Rhabdomyolysis (5) Lactic acidosis Code(s): E87.2 - ACIDOSIS (6) Atelectasis of left lung Code(s): J98.11 - ATELECTASIS Assessment/Plan Influenza A Sepsis Acute Kidney Injury improved Lactic Acidosis resolved Rhabdomyolysis improving h/o PE ?chf - tamiflu completed - prednisone taper - monitor urine output, creatinine - monitor CPK - O2 to keep SpO2 >90% - inhaled bronchodilators - continue anticoagulation as per inr DR LIND
--- NOTE | 2016-09-11 16:35 | PN ---
Progress Note (short form) - Note Progress Note: much improved less cough Vital Signs Period Temp Pulse Resp BP Sys/Horowitz Pulse Ox Last 24 Hr 97.3 F-98.7 F 84-150 18-20 129-150/68-94 91-95 cor-rrr lungs decreased bs at bases abd- soft,nt ext no edema CBC, BMP 09/10/16 06:00 09/10/16 06:00 Microbiology 09/04/16 17:01 Nasopharyngeal Swab Respiratory Virus Panel - Final 09/08/16 17:30 Sputum - Expectorated Gram Stain - Final 09/08/16 17:30 Sputum - Expectorated Sputum Culture - Final NORMAL RESPIRATORY JADE 09/04/16 17:01 Blood - Peripheral Venous Blood Culture - Final NO GROWTH AFTER 5 DAYS INCUBATION 09/04/16 17:01 Blood - Peripheral Venous Blood Culture - Final NO GROWTH AFTER 5 DAYS INCUBATION 09/08/16 17:30 Urine For Antigen Detection Legionella Antigen - Final 09/08/16 17:30 Urine For Antigen Detection Streptococcus pneumoniae Antigen (M - Final 09/05/16 04:15 Urine - Urine Clean Catch Urine Culture - Final Contaminated: Please Repeat 09/04/16 17:01 Nasopharyngeal Swab Influenza Types A,B Antigen (GENEVIEVE) - Final 09/04/16 17:01 Nasopharyngeal Swab - Final Current Medications Albuterol Sulfate (Ventolin 0.083% Nebulizer Soln -) 1 amp NEB Q4H PRN PRN Reason: SHORT OF BREATH/WHEEZING Last Admin: 09/10/16 11:24 Dose: 1 amp Ceftriaxone Sodium (Rocephin 1gm Ivpb (Pre-Docked)) 1 gm IVPB DAILY [facility]URA PRN Reason: Protocol Last Admin: 09/11/16 09:40 Dose: 1 gm Diltiazem HCl (Cardizem Cd -) 120 mg PO DAILY [facility] Last Admin: 09/11/16 10:42 Dose: 120 mg Guaifenesin (Diabetic Tussin Dm -) 5 ml PO Q4H PRN PRN Reason: COUGH Last Admin: 09/11/16 10:23 Dose: 5 ml Prednisolone Acetate (Pred Forte 1% -) 1 drop OU BID [facility] Last Admin: 09/11/16 09:40 Dose: 1 drop Prednisone (Deltasone -) 40 mg PO DAILY [facility] Valsartan (Diovan -) 160 mg PO DAILY [facility] Last Admin: 09/11/16 09:39 Dose: 160 mg Warfarin Sodium (Coumadin -) 4 mg PO DAILY@1800 [facility] Last Admin: 09/10/16 18:07 Dose: Not Given a/p influenza A-s/p tamiflu 5 days rhabdomyolysis resolving rocephin #4 for possible pneumonia-last dose in am sputum culture normal jade clinically improved please call back if needed Problem List - Problems (1) Influenza A Code(s): J10.1 - FLU DUE TO OTH IDENT INFLUENZA VIRUS W OTH RESP MANIFEST (2) Rhabdomyolysis Code(s): M62.82 - RHABDOMYOLYSIS Qualifiers: Rhabdomyolysis type: non-traumatic Qualified Code(s): M62.82 - Rhabdomyolysis (3) ELLIE (acute kidney injury) Code(s): N17.9 - ACUTE KIDNEY FAILURE, UNSPECIFIED
[2016-09-11] MEDS: WARFARIN NA 2 MG TABLET (UD) PO SCH (17:46)
--- NOTE | 2016-09-11 22:35 | PN ---
Progress Note (short form) - Note Progress Note: s/p influenza s/p superimposed pneumonia copd Current Medications Albuterol Sulfate (Ventolin 0.083% Nebulizer Soln -) 1 amp NEB Q4H PRN PRN Reason: SHORT OF BREATH/WHEEZING Last Admin: 09/10/16 11:24 Dose: 1 amp Diltiazem HCl (Cardizem Cd -) 120 mg PO DAILY [facility] Last Admin: 09/11/16 10:42 Dose: 120 mg Guaifenesin (Diabetic Tussin Dm -) 5 ml PO Q4H PRN PRN Reason: COUGH Last Admin: 09/11/16 10:23 Dose: 5 ml Prednisolone Acetate (Pred Forte 1% -) 1 drop OU BID [facility] Last Admin: 09/11/16 21:02 Dose: Not Given Prednisone (Deltasone -) 20 mg PO DAILY [facility] Valsartan (Diovan -) 160 mg PO DAILY [facility] Last Admin: 09/11/16 09:39 Dose: 160 mg Warfarin Sodium (Coumadin -) 4 mg PO DAILY@1800 [facility] Last Admin: 09/11/16 17:46 Dose: Not Given Last Vital Signs Temp Pulse Resp BP Pulse Ox 97.2 F L 85 18 148/97 91 L 09/11/16 18:00 09/11/16 18:00 09/11/16 18:00 09/11/16 18:00 09/11/16 11:12 lungs clear heart reg rate and rhythm abd soft nontender ext no cyanosis IMP improved Plan- d/c in am
[2016-09-12 07:19] LABS: INR 2.17 (0.82-1.09); PROTHROMBIN TIME (PATIENT) 24.3 SEC (9.98-11.88)
[2016-09-12] MEDS ORDERED: PT OWN MED DRAWER 7, Y5N ONE (08:57)
[2016-09-12] MEDS: prednisoLONE ACETATE 1% OPHTH SUSP 5 ML BOTTLE OU SCH (09:00)
[2016-09-12] MEDS: VALSARTAN 160 MG TABLET (UD) PO SCH (09:00)
[2016-09-12] MEDS ORDERED: predniSONE 20 MG TABLET (UD) PO SCH ×2 (10:00)
[2016-09-12] MEDS ORDERED: CEFUROXIME AXETIL 500 MG TABLET PO SCH (10:00)
--- NOTE | 2016-09-12 12:27 | PN ---
Progress Note, Physician History of Present Illness: pulmonary alert,no distress,-cp,-sob - Current Medication List Current Medications: Active Medications Albuterol Sulfate (Ventolin 0.083% Nebulizer Soln -) 1 amp NEB Q4H PRN PRN Reason: SHORT OF BREATH/WHEEZING Last Admin: 09/10/16 11:24 Dose: 1 amp Cefuroxime Axetil (Ceftin -) 500 mg PO BID [facility] Stop: 09/16/16 23:59 Last Admin: 09/12/16 09:00 Dose: 500 mg Diltiazem HCl (Cardizem Cd -) 120 mg PO DAILY [facility] Last Admin: 09/12/16 09:00 Dose: 120 mg Guaifenesin (Diabetic Tussin Dm -) 5 ml PO Q4H PRN PRN Reason: COUGH Last Admin: 09/11/16 10:23 Dose: 5 ml Prednisolone Acetate (Pred Forte 1% -) 1 drop OU BID [facility] Last Admin: 09/12/16 09:00 Dose: Not Given Prednisone (Deltasone -) 20 mg PO DAILY [facility] Last Admin: 09/12/16 09:00 Dose: 20 mg Valsartan (Diovan -) 160 mg PO DAILY [facility] Last Admin: 09/12/16 09:00 Dose: 160 mg Warfarin Sodium (Coumadin -) 4 mg PO DAILY@1800 [facility] Last Admin: 09/11/16 17:46 Dose: Not Given - Objective Vital Signs: Vital Signs Temperature 98.4 F 09/12/16 10:00 Pulse Rate 77 09/12/16 10:00 Respiratory Rate 18 09/12/16 10:00 Blood Pressure 162/78 09/12/16 10:00 O2 Sat by Pulse Oximetry (%) 95 09/12/16 09:00 Constitutional: Yes: Well Nourished, Calm Eyes: Yes: WNL HENT: Yes: WNL, Tonsillar Exudate Cardiovascular: Yes: Regular Rate and Rhythm, S1, S2 Respiratory: Yes: CTA Bilaterally Gastrointestinal: Yes: WNL Extremities: Yes: WNL Edema: Yes Labs: CBC, BMP Assessment/Plan Problem List - Problems (1) Influenza A Code(s): J10.1 - FLU DUE TO OTH IDENT INFLUENZA VIRUS W OTH RESP MANIFEST (2) Sepsis Code(s): A41.9 - SEPSIS, UNSPECIFIED ORGANISM Qualifiers: Sepsis type: sepsis due to unspecified organism Qualified Code(s): A41.9 - Sepsis, unspecified organism (3) ELLIE (acute kidney injury) Code(s): N17.9 - ACUTE KIDNEY FAILURE, UNSPECIFIED (4) Rhabdomyolysis Code(s): M62.82 - RHABDOMYOLYSIS Qualifiers: Rhabdomyolysis type: non-traumatic Qualified Code(s): M62.82 - Rhabdomyolysis (5) Lactic acidosis Code(s): E87.2 - ACIDOSIS (6) Atelectasis of left lung Code(s): J98.11 - ATELECTASIS Assessment/Plan Influenza A s/p tamiflu Sepsis Acute Kidney Injury improved Lactic Acidosis resolved Rhabdomyolysis improving h/o PE - tamiflu completed - prednisone taper - monitor urine output, creatinine - O2 to keep SpO2 >90% - inhaled bronchodilators - continue anticoagulation as per inr - pfts outpatient DR LIND
[2016-09-12 15:22] VITALS: BP 135/66; PULSE 88; TEMP 98.3
--- NOTE | 2016-09-12 17:26 | PN ---
Progress Note, Physician History of Present Illness: 81 f hx hld, htn, PE (approx 4 yrs ago, on ac since), here with fever, cough. Had been feeling well until about 2 wks ago when noticed cough. Went away on own but then over past 2 days cough returned and felt subjective chills/fever so came to hospital. No cp, sob, palps, dizzy, pnd, orthopnea, le edema. Also with mylagias. No hx hrt dz per pt. Found to have the flu here. - Objective Vital Signs: Vital Signs Temperature 98.3 F 09/12/16 15:00 Pulse Rate 88 09/12/16 15:00 Respiratory Rate 20 09/12/16 15:00 Blood Pressure 135/66 09/12/16 15:00 O2 Sat by Pulse Oximetry (%) 96 09/12/16 14:05 Eyes: Yes: WNL, Conjunctiva Clear, EOM Intact HENT: Yes: WNL, Atraumatic, Normocephalic Neck: Yes: WNL, Supple, Trachea Midline Cardiovascular: Yes: WNL, Regular Rate and Rhythm Respiratory: Yes: WNL, Regular, CTA Bilaterally Gastrointestinal: Yes: WNL, Normal Bowel Sounds Genitourinary: Yes: WNL Musculoskeletal: Yes: WNL Extremities: Yes: WNL Edema: No Integumentary: Yes: WNL Neurological: Yes: WNL, Alert, Oriented ...Motor Strength: WNL Psychiatric: Yes: WNL Labs: CBC, BMP 09/10/16 06:00 09/10/16 06:00 INR, PTT INR 2.17 (0.82-1.09) H D 09/12/16 06:00 Assessment/Plan - Problems (1) Atelectasis of left lung Code(s): J98.11 - ATELECTASIS (2) Influenza A Assessment/Plan: finished treatment Code(s): J10.1 - FLU DUE TO OTH IDENT INFLUENZA VIRUS W OTH RESP MANIFEST (3) Pulmonary embolism Assessment/Plan: on warfarin; keep INR 2-3 Code(s): I26.99 - OTHER PULMONARY EMBOLISM WITHOUT ACUTE COR PULMONALE (4) Tachycardia Assessment/Plan: Pt is tachycardic on minimal exertion; F/u AF. (On lifelong warfarin for PE already). Normal LVEF. Start diltiazem CD 120 mg daily for HTN and HR. Code(s): R00.0 - TACHYCARDIA, UNSPECIFIED
--- NOTE | 2016-09-13 00:03 | DS ---
Physical Examination Vital Signs: Vital Signs Temperature 98.3 F 09/12/16 15:00 Pulse Rate 88 09/12/16 15:00 Respiratory Rate 20 09/12/16 15:00 Blood Pressure 135/66 09/12/16 15:00 O2 Sat by Pulse Oximetry (%) 96 09/12/16 14:05 Constitutional: Yes: Well Nourished, No Distress, Calm Labs: CBC, BMP 09/10/16 06:00 09/10/16 06:00 Discharge Summary Reason For Visit: ATELECTASIS OF LFT LUNG/INFL A/SEPSIS - Instructions Referrals: Karol Novak MD [Primary Care Provider] - Disposition: HOME - Home Medications Comprehensive Discharge Medication List: Ambulatory Orders Prednisolone 1% Ophthalmic [Pred Forte 1% -] 1 drop OU BID 09/04/16 Valsartan/Hydrochlorothiazide [Valsartan-Hctz 160-12.5 mg Tab] 0 each PO DAILY 09/04/16 Warfarin Sodium [Coumadin] 3 mg PO HS 09/04/16 Guaifenesin/D-Methorphan Hb [Diabetic Tussin Dm -] 5 ml PO Q4H PRN #120 ml 09/11 Prednisone [Deltasone -] See Taper PO DAILY #9 tablet 09/11/16
== END 2016-09-12 17:00 | disposition home or self-care (01) | DRG 871 ==
LOC: JER 16:24 → JERBED 17:58 → J4W 09-05 02:01 → J4S 09-05 09:15
PROVIDERS: ADMIT Family Medicine; ATTEND Family Medicine
DX: A41.9 Sepsis, unspecified organism (principal); J18.9 Pneumonia, unspecified organism; N17.9 Acute kidney failure, unspecified; E87.2 Acidosis; J98.11 Atelectasis; M62.82 Rhabdomyolysis; Z68.41 Body mass index [BMI] 40.0-44.9, adult; J44.9 Chronic obstructive pulmonary disease, unspecified; E78.5 Hyperlipidemia, unspecified; I10 Essential (primary) hypertension; R00.0 Tachycardia, unspecified; Z86.711 Personal history of pulmonary embolism; D72.819 Decreased white blood cell count, unspecified; R26.89 Other abnormalities of gait and mobility; E87.6 Hypokalemia; D69.6 Thrombocytopenia, unspecified; E66.9 Obesity, unspecified; E86.0 Dehydration; J09.X2 Influenza due to identified novel influenza A virus with other respiratory manifestations; R65.20 Severe sepsis without septic shock; I25.10 Atherosclerotic heart disease of native coronary artery without angina pectoris
CPT/HCPCS: 36415; 71010-TC; 80048; 80053; 81003; 81015; 82550; 82553; 82803; 83605; 83880; 84484; 85025; 85027; 85610; 86850; 86900; 86901; 87040; 87070; 87086; 87205; 87254; 87804; 87899; 90670; 93005; 93010; 93306-TC; 94640; 94761; 97116-GP; 97162-PG; 99285-25

== ENCOUNTER 2017-08-12 18:06 | Emergency (ER) | payer OTHER, BC ==
--- NOTE | 2017-08-12 18:14 | PDOC ---
Rapid Medical Evaluation Time Seen by Provider: 08/12/17 18:13 Medical Evaluation: Allergies Allergy/AdvReac Type Severity Reaction Status Date / Time hydrochlorothiazide Allergy Intermediate Hives Verified 05/16/17 14:30 [From Benicar HCT] olmesartan medoxomil Allergy Intermediate Hives Verified 05/16/17 14:30 [From Benicar HCT] coffee (Coffea arabica) Allergy Mild Verified 05/16/17 14:30 Bananas Allergy Intermediate Swelling Uncoded 05/16/17 14:30 08/12/17 18:13 I have performed a brief in-person evaluation of this patient. The patient presents with a chief complaint of: R shoulder pain radiating to neck and elbow yesterday. H/o arthritis and b/l rotator cuff tendinopathy per chart review, s/p PT, PE on warfarin, HTN, CAD Pertinent physical exam findings:No swelling but LROM to R shoulder I have ordered the following:nothing The patient will proceed to the ED for further evaluation.
[2017-08-12 18:20] VITALS: BP 124/72; PULSE 98; TEMP 98; BMI 41.3
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
[2017-08-12 20:49] LABS: BASO % 0.4 % (0-2.0); HEMATOCRIT 38.2 % (32.4-45.2); HEMOGLOBIN 12.6 GM/dL (10.7-15.3); LYMPH % 17.2 % (8-40); MCH 30.3 pg (25.7-33.7); MEAN CELL VOLUME 91.8 fl (80-96); MEAN PLT VOLUME 7.3 fl (7.5-11.1); MONO % 5.3 % (3.8-10.2); NEUT % 75.1 % (42.8-82.8); PLATELET COUNT 193 K/MM3 (134-434); RBC 4.16 M/mm3 (3.60-5.2); RDW 14.9 % (11.6-15.6); WHITE BLOOD COUNT 8.1 K/mm3 (4.0-10.0)
[2017-08-12 21:03] LABS: INR 2.84 (0.82-1.09); PROTHROMBIN TIME (PATIENT) 32.1 SEC (9.98-11.88)
[2017-08-12 21:22] LABS: ALBUMIN 3.9 g/dl (3.4-5.0); ANION GAP 6 (8-16); BLOOD UREA NITROGEN 13 mg/dL (7-18); CALCIUM 8.3 mg/dL (8.5-10.1); CHLORIDE 102 mmol/L (98-107); CO2 32 mmol/L (21-32); GLUCOSE,RANDOM 127 mg/dL (74-106); POTASSIUM 3.1 mmol/L (3.5-5.1); SGOT/AST 23 U/L (15-37); SODIUM 140 mmol/L (136-145)
[2017-08-12 21:44] LABS: ALK PHOS 54 U/L (45-117); BILIRUBIN,TOTAL 0.7 mg/dL (0.2-1.0); SGPT/ALT 22 U/L (12-78); TOT PROT 6.9 g/dl (6.4-8.2)
== END 2017-08-12 23:18 | disposition home or self-care (01) ==
LOC: JER 18:06 → JERFT 18:06 → JER 23:18
DX: S72.114A Nondisplaced fracture of greater trochanter of right femur, initial encounter for closed fracture (principal); X58.XXXA Exposure to other specified factors, initial encounter; Y93.89 Activity, other specified; Y92.9 Unspecified place or not applicable; I10 Essential (primary) hypertension; J44.9 Chronic obstructive pulmonary disease, unspecified; Z86.711 Personal history of pulmonary embolism; Z79.01 Long term (current) use of anticoagulants; I25.10 Atherosclerotic heart disease of native coronary artery without angina pectoris; Z99.89 Dependence on other enabling machines and devices
CPT/HCPCS: 36415; 71046-TC; 73030-TC-RT; 80053; 82550; 84484; 85025; 85610; 85730; 99281-25

== ENCOUNTER 2018-02-14 01:07 | Emergency (ER) | payer OTHER, BC ==
[2018-02-14 01:19] VITALS: BP 134/72; PULSE 82; TEMP 98.3; BMI 39.6
--- NOTE | 2018-02-14 01:52 | PDOC ---
History of Present Illness - General Chief Complaint: Rash Stated Complaint: RASH Time Seen by Provider: 02/14/18 01:33 History Source: Patient, Old Records Exam Limitations: No Limitations - History of Present Illness Initial Comments: 02/14/18 01:51 HISTORY OF PRESENT ILLNESS: This is a 82-year-old woman past medical history of PE on Coumadin, CAD, COPD, hypertension, arthritis, uterine prolapse, right inguinal hernia repair and right humerus fracture 07/30 presents emergency Department with rash to her upper back and neck the past 5 days. Patient states she noticed insect bites in these areas 5 days ago and she has noticed the progression in pain, erythema and temperature since initial presentation. Patient denies fevers, chills, headaches, blurry vision, dizziness, neck stiffness. No recent travel or sick contacts. PAST MEDICAL HISTORY: see HPI SURGICAL HISTORY: see HPI ALLERGIES: Hydrochlorothiazide, olmesartan, coffee, bananas REVIEW OF SYSTEMS General/Constitutional: Denies fever or chills. Denies weakness, weight change. HEENT: Denies change in vision. Denies ear pain or discharge. Denies sore throat. Cardiovascular: Denies chest pain or shortness of breath. Respiratory: Denies cough, wheezing, or hemoptysis. Gastrointestinal: Denies nausea, vomiting, diarrhea or constipation. Denies rectal bleeding. Genitourinary: Denies dysuria, frequency, or change in urination. Musculoskeletal: Denies joint or muscle swelling or pain. Denies neck or back pain. Skin and breasts: Denies rash or easy bruising. Neurologic: Denies headache, vertigo, loss of consciousness, or loss of sensation. Psychiatric: Denies depression or anxiety. Endocrine: Denies increased thirst. Denies abnormal weight change. Hematologic/Lymphatic: Denies anemia, easy bleeding, or history of blood clots. Allergic/Immunologic: Denies hives or skin allergy. Denies latex allergy. PHYSICAL EXAM General Appearance: Well-appearing, appropriately dressed. No apparent distress , no intoxication. HEENT: EOMI, PERRLA, normal ENT inspection, normal voice, TMs normal, pharynx normal. No conjunctival pallor. No photophobia, scleral icterus. Neck: Supple. Trachea midline. No tenderness, rigidity, carotid bruit, stridor , lymphadenopathy, or thyromegaly. Respiratory/Chest: Lungs CTAB. No shortness of breath, chest tenderness, respiratory distress, accessory muscle use. No crackles, rales, rhonchi, stridor , wheezing, dullness Cardiovascular: RRR. S1, S2. No JVD, murmur, bradycardia, tachycardia. Vascular Pulses: Dorsalis-Pedis (R): 2+, Dorsalis-Pedis (L): 2+ Gastrointestinal/Abdominal: Normal bowel sounds. Abdomen soft, non-distended. No tenderness or rebound tenderness. No organomegaly, pulsatile mass, guarding , hernia, hepatomegaly, splenomegaly. Lymphatic: No adenopathy, tenderness. Musculoskeletal/Extremities: Normal inspection. FROM of all extremities, normal capillary refill. Pelvis Stable. No CVA tenderness. No tenderness to extremities, pedal edema, swelling, erythema or deformity. Integumentary: 3 areas of erythema present. One to left shoulder, one to right upper back, and one to right posterior lateral neck Neurologic: ssis developer II-XII intact. Fully oriented, alert. Appropriate mood/affect. Motor strength 5/5. No appreciable EOM palsy, facial droop or sensory deficit. Past History - Past Medical History Allergies/Adverse Reactions: Allergies Allergy/AdvReac Type Severity Reaction Status Date / Time hydrochlorothiazide Allergy Intermediate Hives Verified 02/09/18 14:06 [From Benicar HCT] olmesartan medoxomil Allergy Intermediate Hives Verified 02/09/18 14:06 [From Benicar HCT] coffee (Coffea arabica) Allergy Mild Verified 02/09/18 14:06 Bananas Allergy Intermediate Swelling Uncoded 02/09/18 14:06 Home Medications: Ambulatory Orders Warfarin Sodium [Coumadin] 3 mg PO HS 09/04/16 Atorvastatin Calcium [Lipitor] 10 mg PO HS 08/12/17 Cholecalciferol (Vitamin D3) [Vitamin D3 -] 1,000 unit PO DAILY 08/12/17 Losartan/Hydrochlorothiazide [Losartan-Hctz 50-12.5 mg Tab] 1 each PO DAILY Tramadol HCl 50 mg PO QID PRN 08/12/17 Cephalexin Monohydrate [Keflex -] 500 mg PO Q6H #28 capsule 02/14/18 Anemia: No Asthma: No Cancer: No Cardiac Disorders: Yes (H/O PE.) CVA: No COPD: Yes CHF: No Dementia: No Diabetes: No GI Disorders: No Disorders: Yes (prolapse uterus) HTN: Yes Hypercholesterolemia: Yes Liver Disease: No Seizures: No Thyroid Disease: No - Surgical History Abdominal Surgery: Yes (rt inguinal hernia) Appendectomy: No Cardiac Surgery: No Cholecystectomy: No Neurologic Surgery: No Orthopedic Surgery: No - Reproductive History Cervical CA: No Dysfunctional Uterine Bleeding: No Therapeutic (s) & number: No - Immunization History Immunization Up to Date: Yes - Suicide/Smoking/Psychosocial Hx Smoking Status: No Smoking History: Never smoked Have you smoked in the past 12 months: No Number of Cigarettes Smoked Daily: 0 Hx Alcohol Use: No Drug/Substance Use Hx: No Substance Use Type: None Hx Substance Use Treatment: No *Physical Exam - Vital Signs Last Vital Signs Temp Pulse Resp BP Pulse Ox 98.3 F 82 20 134/72 99 02/14/18 01:09 02/14/18 01:09 02/14/18 01:09 02/14/18 01:09 02/14/18 01:09 ED Treatment Course - LABORATORY CBC & Chemistry Diagram: 02/14/18 01:49 02/14/18 01:49 Medical Decision Making - Medical Decision Making 02/14/18 02:36 A/P: 82-year-old woman with multiple medical problems with rash to trunk and neck 3 areas of raised pink erythema present. One to left shoulder, one to right upper back, and one to right posterior lateral neck Areas warm to touch. No fluctuance noted Mild induration to 4 cm x 3 cm ovoid area on the right posterior lateral neck No meningismus Most likely histamine reaction from insect bites. Given location and patient's comorbidities I will rule out cellulitis and/or abscess with CAT scan of the neck. 02/14/18 03:48 CT of the neck as read by imaging occupational therapy professor: Pharyngeal and retropharyngeal soft tissues appear normal. Vascular structures enhanced normally. Cervical chain lymph nodes are not enlarged. There is a 1.6 x 1.3 cm thyroid nodule. Submandibular parotid glands appear normal. There is increased attenuation in thickening the subcutaneous fat of the left superior back overlying medial to the left scapula. There is no drainable fluid collection Impression: Cellulitis in the left superior back. Thyroid nodule I will discharge patient to f/u with her PMD. I discussed the physical exam findings, ancillary test results and final diagnoses with the patient. I answered all of the patient's questions. The patient was satisfied with the care received and felt comfortable with the discharge plan and treatment plan. The patient will call their primary care physician within 24 hours to arrange follow-up and will return to the Emergency Department with any new, persistent or worsening symptoms. *DC/Admit/Observation/Transfer Diagnosis at time of Disposition: Cellulitis of back [any part except buttock] - Discharge Dispostion Disposition: HOME Condition at time of disposition: Stable Decision to Admit order: No - Prescriptions Prescriptions: Cephalexin Monohydrate [Keflex -] 500 mg PO Q6H #28 capsule - Referrals Referrals: Karol Novak MD [Primary Care Provider] - - Patient Instructions Additional Instructions: Take Keflex 500 mg 4 times a day for the next 7 days Keflex can increase your INR. Make an appointment with your doctor for re- evaluation and closer monitoring of your INR. Finish all antibiotics even if you feel better. Apply warm compresses to your back as needed. Return to emergency department for any worsening pain, drainage, hearing loss, or any other concerns. Thank you very much for choosing us to provide your emergent health care needs. - Post Discharge Activity
[2018-02-14 02:05] LABS: BASO % 0.4 % (0-2.0); EOS % 2.4 % (0-4.5); HEMATOCRIT 38.6 % (32.4-45.2); HEMOGLOBIN 12.9 GM/dL (10.7-15.3); LYMPH % 28.7 % (8-40); MCH 29.8 pg (25.7-33.7); MCHC 33.5 g/dl (32.0-36.0); MEAN PLT VOLUME 7.5 fl (7.5-11.1); NEUT % 63.5 % (42.8-82.8); PLATELET COUNT 200 K/MM3 (134-434); RBC 4.34 M/mm3 (3.60-5.2); RDW 15.5 % (11.6-15.6); WHITE BLOOD COUNT 6.1 K/mm3 (4.0-10.0)
[2018-02-14 02:46] LABS: ANION GAP 6 (8-16); BLOOD UREA NITROGEN 17 mg/dL (7-18); CALCIUM 9.1 mg/dL (8.5-10.1); CHLORIDE 106 mmol/L (98-107); CO2 31 mmol/L (21-32); GLUCOSE,RANDOM 101 mg/dL (74-106); POTASSIUM 3.3 mmol/L (3.5-5.1); SODIUM 143 mmol/L (136-145)
[2018-02-14] MEDS ORDERED: CEPHALEXIN MONOHYDRATE 500 MG CAPSULE (UD) ONE (04:06)
[2018-02-14] MEDS ORDERED: CEPHALEXIN MONOHYDRATE 500 MG CAPSULE (UD) PO ONE (04:08)
== END 2018-02-14 04:10 | disposition home or self-care (01) ==
LOC: JER 01:07
DX: L03.312 Cellulitis of back [any part except buttock and flank] (principal); E04.1 Nontoxic single thyroid nodule; I10 Essential (primary) hypertension; I25.10 Atherosclerotic heart disease of native coronary artery without angina pectoris; M19.90 Unspecified osteoarthritis, unspecified site; E78.00 Pure hypercholesterolemia, unspecified; Z79.01 Long term (current) use of anticoagulants; Z86.711 Personal history of pulmonary embolism
CPT/HCPCS: 36415; 70491-TC; 80048; 85025; 99281-25

== ENCOUNTER 2018-03-01 12:22 | Emergency (ER) | payer OTHER, BC ==
[2018-03-01 12:26] VITALS: BP 113/83; PULSE 74; TEMP 98.3; BMI 39.9
[2018-03-01] MEDS ORDERED: DEXAMETHASONE SOD PHOSPHATE 10 MG/1 ML VIAL IM ONE (13:13)
[2018-03-01] MEDS ORDERED: DEXAMETHASONE SOD PHOSPHATE 4 MG/1 ML VIAL ONE (13:19)
--- NOTE | 2018-03-01 13:19 | PDOC ---
History of Present Illness - General Chief Complaint: Allergic Reaction Stated Complaint: Allergic Reaction Time Seen by Provider: 03/01/18 12:57 History Source: Patient Exam Limitations: No Limitations - History of Present Illness Initial Comments: 03/01/18 13:27 Patient came for evaluation of multiple pruritic lesions that come and go on her back and arms. He is convinced hasn't having an ALLERGIC reaction to her warfarin. was seen a few weeks ago by her PMD and was placed on Keflex and Benadryl. had resolution of the lesions at that time but the past couple days these lesions have recurred. Has not taken any Benadryl for the past 3 days. Is convinced that with dosing of warfarin that the lesions occur approximately 2-3 hours after that dosing. Patient has been taking warfarin for many many years and has not changed brand or dosage strength. Patient denies swelling to the lips tongue or face, denies any wheezing or shortness of breath. Timing/Duration: unsure Severity: mild Associated Symptoms: reports: denies symptoms, rash. denies: fever/chills Past History - Travel Traveled outside of the country in the last 30 days: No Close contact w/someone who was outside of country & ill: No - Past Medical History Allergies/Adverse Reactions: Allergies Allergy/AdvReac Type Severity Reaction Status Date / Time hydrochlorothiazide Allergy Intermediate Hives Verified 03/01/18 12:24 [From Benicar HCT] olmesartan medoxomil Allergy Intermediate Hives Verified 03/01/18 12:24 [From Benicar HCT] coffee (Coffea arabica) Allergy Mild Verified 03/01/18 12:24 Bananas Allergy Intermediate Swelling Uncoded 03/01/18 12:24 Home Medications: Ambulatory Orders Warfarin Sodium [Coumadin] 3 mg PO HS 09/04/16 Atorvastatin Calcium [Lipitor] 10 mg PO HS 08/12/17 Cholecalciferol (Vitamin D3) [Vitamin D3 -] 1,000 unit PO DAILY 08/12/17 Losartan/Hydrochlorothiazide [Losartan-Hctz 50-12.5 mg Tab] 1 each PO DAILY Tramadol HCl 50 mg PO QID PRN 08/12/17 Cephalexin Monohydrate [Keflex -] 500 mg PO Q6H #28 capsule 02/14/18 Anemia: No Asthma: No Cancer: No Cardiac Disorders: Yes (H/O PE.) CVA: No COPD: Yes CHF: No Dementia: No Diabetes: No GI Disorders: No Disorders: Yes (prolapse uterus) HTN: Yes Hypercholesterolemia: Yes Liver Disease: No Seizures: No Thyroid Disease: No - Surgical History Abdominal Surgery: Yes (rt inguinal hernia) Appendectomy: No Cardiac Surgery: No Cholecystectomy: No Neurologic Surgery: No Orthopedic Surgery: No - Reproductive History Cervical CA: No Dysfunctional Uterine Bleeding: No Therapeutic (s) & number: No - Immunization History Immunization Up to Date: Yes - Suicide/Smoking/Psychosocial Hx Smoking Status: No Smoking History: Never smoked Have you smoked in the past 12 months: No Number of Cigarettes Smoked Daily: 0 Information on smoking cessation initiated: No Hx Alcohol Use: No Drug/Substance Use Hx: No Substance Use Type: None Hx Substance Use Treatment: No Review of Systems - Review of Systems Able to Perform ROS?: Yes Is the patient limited Kiswahili proficient: Yes Constitutional: Yes: Symptoms Reported, See HPI. No: Fever, Malaise HEENTM: Yes: See HPI. No: Symptoms Reported Respiratory: Yes: See HPI. No: Symptoms reported, Cough, Wheezing ABD/GI: Yes: See HPI. No: Symptoms Reported : No: Symptoms Reported Integumentary: Yes: Symptoms Reported, Lesions, Pruritus, Rash All Other Systems: Reviewed and Negative *Physical Exam - Vital Signs Last Vital Signs Temp Pulse Resp BP Pulse Ox 98.3 F 74 18 113/83 100 03/01/18 12:24 03/01/18 12:24 03/01/18 12:24 03/01/18 12:24 03/01/18 12:24 - Physical Exam General Appearance: Yes: Nourished, Appropriately Dressed, Apparent Distress HEENT: positive: MATIAS, TMs Normal Neck: positive: Tender, Supple. negative: Lymphadenopathy (R), Lymphadenopathy (L) Respiratory/Chest: positive: Lungs Clear, Normal Breath Sounds Gastrointestinal/Abdominal: positive: Soft Musculoskeletal: positive: Normal Inspection, Decreased Range of Motion Integumentary: positive: Normal Color, Rash (multiple scattered discrete lesions noted to left upper back, one on her neck that patient reports as mildly pruritic, nonvesicular appearing, non-cellulitic appearing. Do not have any hive appearance to them. On draining or fluctuant.) Neurologic: positive: hospital educator II-XII NML intact, Fully Oriented, Alert, Normal Mood/ Affect, Normal Response, Motor Strength 11/14 Medical Decision Making - Medical Decision Making 03/01/[address] Moreno's office who agrees will see her on for reevaluation of this dermatitis. Patient given 1 dose of Decadron 10 mg in agreement with doctor's office, encouraged to take cooler showers and avoid scratching. Also encouraged to continue Benadryl or antihistamine and itching purpose. 03/01/18 19:04 *DC/Admit/Observation/Transfer Diagnosis at time of Disposition: Dermatitis - Discharge Dispostion Disposition: HOME Condition at time of disposition: Stable Decision to Admit order: No - Referrals Referrals: Karol Novak MD [Primary Care Provider] - - Patient Instructions Printed Discharge Instructions: DI for Atopic Dermatitis - Adult Additional Instructions: Rest, keep cool and dry- avoid strenuous activity or hot /humid environments Less hot showers, no abrasive soaps May use heavy creams like Eucerin or Cetaphil to keep skin moist May apply Aveeno, calamine lotion, [id number] hydrocortisone creams as needed for symptoms May use Benadryl at night for antihistamine, Zyrtec/ Molly or Claritin for daytime antihistamine use to help with itching May use [id number] hydrocortisone cream on all areas except face Try to identify cause for rash and avoid exposures Followup with PMD in one week if no resolution Make appointment with whey department operator for evaluation when possible You have an appointment with Dr. Moreno at [facility] on March 04 at 9 AM - Post Discharge Activity
== END 2018-03-01 13:47 | disposition home or self-care (01) ==
LOC: JERFT 12:22
PROC: 3E0333Z Introduction of Anti-inflammatory into Peripheral Vein, Percutaneous Approach (ICD-10-PCS; principal; 2018-03-01)
DX: L30.9 Dermatitis, unspecified (principal)
CPT/HCPCS: 96372; 99281-25; J1100

== ENCOUNTER 2019-01-12 07:12 | Emergency (ER) | payer OTHER, BC ==
[2019-01-12 07:22] VITALS: TEMP 98.3; BMI 39.1
--- NOTE | 2019-01-12 08:00 | PDOC ---
History of Present Illness - General Chief Complaint: Shortness of Breath Stated Complaint: SOB Time Seen by Provider: 01/12/19 07:22 History Source: Patient Exam Limitations: No Limitations - History of Present Illness Initial Comments: 01/12/19 07:54 83yo F with PMH of CAD, PE (Coumadin switched to Eliquis 5m ago), COPD, HTN, HLD , Arthritis presenting to ED with complaints of SOB occurring at night when she gets back into bed from using the bathroom for the past 3 nights. She endorses slight substernal chest pain which is resolved that happened this night and slight headache which has also resolved. She states that throughout the day she feels as she normally does. She denies new swelling of the legs, cough, fevers, chills, weight gain, n/v/d, changes in vision, smoking, weakness, numbness/ tingling, new medications, smoke exposure, urinary symptoms. She states that she snores when she sleeps but that has never been an issue in the past. PMD: Din Cards: Eda PMH: see hpi PSH: hernia repair Meds: see med rec Allergies: hctz, see allergy list Social: denies Past History - Past Medical History Allergies/Adverse Reactions: Allergies Allergy/AdvReac Type Severity Reaction Status Date / Time hydrochlorothiazide Allergy Intermediate Hives Verified 01/12/19 07:17 [From Benicar HCT] olmesartan medoxomil Allergy Intermediate Hives Verified 01/12/19 07:17 [From Benicar HCT] coffee (Coffea arabica) Allergy Mild Verified 01/12/19 07:17 Bananas Allergy Intermediate Swelling Uncoded 01/12/19 07:17 Home Medications: Ambulatory Orders Warfarin Sodium [Coumadin] 3 mg PO HS 09/04/16 Atorvastatin Calcium [Lipitor] 10 mg PO HS 08/12/17 Cholecalciferol (Vitamin D3) [Vitamin D3 -] 1,000 unit PO DAILY 08/12/17 Losartan/Hydrochlorothiazide [Losartan-Hctz 50-12.5 mg Tab] 1 each PO DAILY Tramadol HCl 50 mg PO QID PRN 08/12/17 Cephalexin Monohydrate [Keflex -] 500 mg PO Q6H #28 capsule 02/14/18 Albuterol 0.083% Nebulizer Kat [Ventolin 0.083% Nebulizer Soln -] 1 neb NEB Q4H #30 vial 01/12/19 Nebulizer [Aeroeclipse II] 1 each ASDIR #1 each 01/12/19 Anemia: No Asthma: No Cancer: No Cardiac Disorders: Yes (H/O PE.) CVA: No COPD: Yes CHF: No Dementia: No Diabetes: No GI Disorders: No Disorders: Yes (prolapse uterus) HTN: Yes Hypercholesterolemia: Yes Liver Disease: No Seizures: No Thyroid Disease: No - Surgical History Abdominal Surgery: Yes (rt inguinal hernia) Appendectomy: No Cardiac Surgery: No Cholecystectomy: No Neurologic Surgery: No Orthopedic Surgery: No - Reproductive History Cervical CA: No Dysfunctional Uterine Bleeding: No Therapeutic (s) & number: No - Immunization History Immunization Up to Date: Yes - Suicide/Smoking/Psychosocial Hx Smoking Status: No Smoking History: Never smoked Have you smoked in the past 12 months: No Number of Cigarettes Smoked Daily: 0 Information on smoking cessation initiated: No Hx Alcohol Use: No Drug/Substance Use Hx: No Substance Use Type: None Hx Substance Use Treatment: No Review of Systems - Review of Systems Cardiac (ROS): Yes: Chest Tightness *Physical Exam - Vital Signs Last Vital Signs Temp Pulse Resp BP Pulse Ox 98.3 F 96 H 18 148/83 95 01/12/19 07:15 01/12/19 07:15 01/12/19 07:15 01/12/19 07:15 01/12/19 07:15 - Physical Exam General Appearance: Yes: Appropriately Dressed, Obese. No: Apparent Distress HEENT: positive: EOMI, MATIAS, Normal ENT Inspection. negative: Pale Conjunctivae , Scleral Icterus (R), Scleral Icterus (L) Neck: positive: Trachea midline, Supple. negative: Lymphadenopathy (R), Lymphadenopathy (L) Respiratory/Chest: positive: Lungs Clear, Normal Breath Sounds. negative: Crackles, Rhonchi, Stridor, Wheezing Cardiovascular: positive: Regular Rhythm, Regular Rate, S1, S2. negative: Edema , JVD, Murmur Comments:: 01/12/19 08:00 RP 2+ Gastrointestinal/Abdominal: positive: Normal Bowel Sounds, Soft. negative: Tender Musculoskeletal: negative: CVA Tenderness Extremity: positive: Normal Capillary Refill. negative: Coldness, Cyanosis, Pedal Edema, Swelling, Calf Tenderness Integumentary: positive: Normal Color, Dry, Warm. negative: Cyanotic, Erythema , Pale, Cold Neurologic: positive: printed circuit board preassembler II-XII NML intact, Fully Oriented, Alert, Normal Mood/ Affect, Normal Response, Motor Strength 11/14 ED Treatment Course - LABORATORY CBC & Chemistry Diagram: 01/12/19 07:56 01/12/19 07:56 - RADIOLOGY Radiology Studies Ordered: Category Date Time Status CHEST X-RAY PORTABLE* [RAD] Stat Radiology 01/12/19 07:26 Taken Medical Decision Making - Medical Decision Making 01/12/19 08:01 83yo F with PMH of CAD, PE (Coumadin switched to Eliquis 5m ago), COPD, HTN, HLD , Arthritis presenting to ED with complaints of SOB occurring at night when she gets back into bed from using the bathroom for the past 3 nights. She endorses slight substernal chest pain which is resolved that happened this night and slight headache which has also resolved. She states that throughout the day she feels as she normally does. She denies new swelling of the legs, cough, fevers, chills, weight gain, n/v/d, changes in vision, smoking, weakness, numbness/ tingling, new medications, smoke exposure, urinary symptoms. She states that she snores when she sleeps but that has never been an issue in the past. Vitals: wnl PE: benign Ddx includes but not limited to ACS, PE, CHF, COPD, PNA, Effusions, pulmonary edema, arrhythmia, metabolic/electrolyte abnormality, LUCIUS, environmental exposure, low suspicion for PE, pt is on AC, likelihood of recurrence is low -ekg, cxr -trop, bnp, cbc, cmp, inr -pt asymptomatic at this time, does not require acute intervention 01/12/19 09:13 EKG: LBBB, similar to prior Labs, slightly elevated bnp, no clinical signs of chf. trop in normal limits Pt asymptomatic at this time. Will check second troponin and repeat vs 01/12/19 10:15 still has chest tightness, with h/o copd, will give duoneb. pt states that these episodes feel similar to prior episodes when dx with pe, will obtain cta. *DC/Admit/Observation/Transfer Diagnosis at time of Disposition: SOB (shortness of breath), Chest tightness COPD (chronic obstructive pulmonary disease) Qualifiers: COPD type: unspecified COPD Qualified Code(s): J44.9 - Chronic obstructive pulmonary disease, unspecified - Discharge Dispostion Disposition: HOME Condition at time of disposition: Improved - Prescriptions Prescriptions: Albuterol 0.083% Nebulizer Kat [Ventolin 0.083% Nebulizer Soln -] 1 neb NEB Q4H #30 vial Nebulizer [Aeroeclipse II] 1 each ASDIR #1 each - Referrals Referrals: Karol Novak MD [Primary Care Provider] - - Patient Instructions Printed Discharge Instructions: DI for Chronic Obstructive Pulmonary Disease Additional Instructions: You were seen in the emergency room for shortness of breath. Your lab tests were normal and the CT did not show a clot in the lungs, the results were provided to you. This is probably due to a flare up of COPD. A prescription for a nebulizer treatment has been sent to your pharmacy. You can use the nebulizer treatments every 4 hours as needed for tightness or shortness of breath. Please make an appointment with your doctor in the next few days to discuss ED visit. Come back to the emergency room if you feel more short of breath, you have chest pain, you pass out, develop fever or cough or if any new concerning symptom develops. Thank you - Post Discharge Activity
[2019-01-12 08:04] LABS: BASO % 0.5 % (0-2.0); EOS % 2.1 % (0-4.5); HEMATOCRIT 36.7 % (32.4-45.2); HEMOGLOBIN 12.2 GM/dL (10.7-15.3); LYMPH % 22.2 % (8-40); MCH 31.1 pg (25.7-33.7); MCHC 33.4 g/dl (32.0-36.0); MEAN CELL VOLUME 93.4 fl (80-96); MEAN PLT VOLUME 7.7 fl (7.5-11.1); MONO % 6.8 % (3.8-10.2); NEUT % 68.4 % (42.8-82.8); PLATELET COUNT 168 K/MM3 (134-434); RBC 3.93 M/mm3 (3.60-5.2); RDW 14.3 % (11.6-15.6); WHITE BLOOD COUNT 6.3 K/mm3 (4.0-10.0)
[2019-01-12 08:17] LABS: INR 1.29 (0.83-1.09); PROTHROMBIN TIME (PATIENT) 15.3 SEC (9.7-13.0)
[2019-01-12 08:34] LABS: ALBUMIN 3.4 g/dl (3.4-5.0); BILIRUBIN,TOTAL 0.5 mg/dL (0.2-1); BLOOD UREA NITROGEN 14.3 mg/dL (7-18); CREATININE 0.9 mg/dL (0.55-1.3); MAGNESIUM 2.3 mg/dL (1.8-2.4); N-TERMINAL BNP 1445.9 pg/ml (5-450); POTASSIUM 3.8 mmol/L (3.5-5.1); TOT PROT 6.5 g/dl (6.4-8.2)
[2019-01-12] MEDS ORDERED: ALBUTEROL SO4 2.5/IPRATROPIUM 0.5 INH SOL 3 ML VIAL.NEB. NEB ONE ×2 (10:04→10:08)
--- NOTE | 2019-01-12 10:15 | PDOC ---
Documentation entered by Angelito Polo SCRIBE, acting as scribe for Eric Jacob MD. Eric Jacob MD: This documentation has been prepared by the Christ damon Joel, SCRIBE, under my direction and personally reviewed by me in its entirety. I confirm that the documentation accurately reflects all work, treatment, procedures, and medical decision making performed by me. Attending Attestation - Resident Resident Name: Cindy Hahn - ED Attending Attestation I have performed the following: I have examined & evaluated the patient, The case was reviewed & discussed with the resident, I agree w/resident's findings & plan, Exceptions are as noted - HPI HPI: 01/12/19 08:27 The patient is an 83 year old female with a significant PMH of CAD, COPD, PE ( on Eliquis), HTN, hyperlipidemia, and arthritis who presents to the emergency department for evaluation of shortness of breath for the past 3 days. The patient states that she feels fine during the daytime, but when she goes to sleep she will sometimes awake with SOB. She denies waking up gasping for air. She states that she will get up to go to the bathroom in the middle of the night , and when she returns to bed, she notices that she is winded. Pt also endorses a chest "tightness". Denies any pain. Denies leg swelling or calf pain. Has been compliant with her eliquis. Pt currently denies any SOB. Denies chest pain. The patient denies headache and dizziness. Denies fever, nausea, vomit, chills, diarrhea and constipation. Denies dysuria, frequency, urgency and hematuria. Allergies: Hydrochlorothiazide, Olmesartan, Medoxomil Past surgical history: Inguinal hernia repair Social history: No reported cigarette, alcohol, or drug use. PCP: Dr. Karol Novak - Physicial Exam PE: 01/12/19 10:13 "GENERAL: Awake, alert, and fully oriented, in no acute distress. HEAD: No signs of trauma EYES: PERRLA, EOMI, sclera anicteric, conjunctiva clear ENT: Auricles normal inspection, hearing grossly normal, nares patent, oropharynx clear without exudates. Moist mucosa NECK: Nontender, no stepoffs, Normal ROM, supple, no lymphadenopathy, JVD, or masses LUNGS: Breath sounds equal, clear to auscultation bilaterally. No wheezes, and no crackles HEART: Regular rate and rhythm, normal S1 and S2, no murmurs, rubs or gallops ABDOMEN: Soft, nontender, normoactive bowel sounds. No guarding, no rebound. No masses EXTREMITIES: Normal range of motion, no edema. No clubbing or cyanosis. No cords, erythema, or tenderness NEUROLOGICAL: Cranial nerves II through XII intact. 5/5 strength and sensation in all extremities, Normal speech, normal gait, normal cerebellar function SKIN: Warm, Dry, normal turgor, no rashes or lesions noted. - Medical Decision Making 01/12/19 10:13 83 F with SOB at night. Pt without any signs of volume overload on exam. Clear lungs. Will r/o PE given h/o PE. ACS unlikely as EKG is unchanged since prior. Pt has h/o COPD. No wheezing on exam but will trial nebulizer. - Labs, trop, BNP - CXR - CTA chest to r/o PE - Duoneb 01/12/19 13:11 Labs unremarkable Trop negative x2 CTA negative for PE Pt reassessed after duoneb, states she feels much better Will DC with nebulizer machine, suspect pt having mild COPD flare. Pt is well appearing, with normal vitals. Clinically stable for DC at this time. I discussed the physical exam findings, ancillary test results and final diagnoses with the patient. I answered all of the patient's questions. The patient was satisfied with the care received and felt comfortable with the discharge plan and treatment plan. The patient agrees to follow up with the primary care physician within 24-72 hours.
[2019-01-12 10:24] VITALS: PULSE 88
[2019-01-12 13:48] VITALS: BP 149/94
--- NOTE | 2019-01-13 10:21 | EKG ---
Test Reason : Blood Pressure : / mmHG Vent. Rate : 077 BPM Atrial Rate : 077 BPM P-R Int : 164 ms QRS Dur : 130 ms QT Int : 424 ms P-R-T Axes : 059 000 137 degrees QTc Int : 479 ms NORMAL SINUS RHYTHM LEFT BUNDLE BRANCH BLOCK ABNORMAL ECG WHEN COMPARED WITH ECG OF 09-FEB-2018 14:44, NO SIGNIFICANT CHANGE WAS FOUND Confirmed by STEF SUH MD ([id number]) on 01/13/2019 10:21:24 AM Referred By: Confirmed By:STFE SUH MD
== END 2019-01-12 13:48 | disposition home or self-care (01) ==
LOC: JER 07:12
PROC: 3E0F7GC Introduction of Other Therapeutic Substance into Respiratory Tract, Via Natural or Artificial Opening (ICD-10-PCS; principal; 2019-01-12)
DX: J44.9 Chronic obstructive pulmonary disease, unspecified (principal); R07.89 Other chest pain; I25.10 Atherosclerotic heart disease of native coronary artery without angina pectoris; Z86.711 Personal history of pulmonary embolism; Z79.01 Long term (current) use of anticoagulants; I10 Essential (primary) hypertension; E78.00 Pure hypercholesterolemia, unspecified
CPT/HCPCS: 36415; 71045-TC-FY; 71275-TC; 80053; 83735; 83880; 84484; 85025; 85610; 93005; 93010; 99283-25

== ENCOUNTER 2020-04-15 02:31 | Inpatient (IN) | payer OTHER, BC ==
--- OUTSIDE RECORDS SUMMARY | 2020-04-15 02:57 | XMS ---
:1935 Author Organization [facility] Care Team Providers Name Role Phone JEANNETTE LIZ Unavailable Unavailable Re-disclosure Warning The records that you are about to access may contain information from federally- assisted alcohol or drug abuse programs. If such information is present, then the following federally mandated warning applies: This information has been disclosed to you from records protected by federal confidentiality rules (42 CFR part 2). The federal rules prohibit you from making any further disclosure of this information unless further disclosure is expressly permitted by the written consent of the person to whom it pertains or as otherwise permitted by 42 CFR part 2. A general authorization for the release of medical or other information is NOT sufficient for this purpose. The Federal rules restrict any use of the information to criminally investigate or prosecute any alcohol or drug abuse patient.The records that you are about to access may contain highly sensitive health information, the redisclosure of which is protected by Article 27-F of the [facility] Public Health law. If you continue you may haveaccess to information: Regarding HIV / AIDS; Provided by facilities licensed or operated by the [facility] Office of Mental Health; or Provided by the [facility] Office for People With Developmental Disabilities. If such information is present, then the following [facility] mandated warning applies: This information has been disclosed to you from confidential records which are protected by state law. State law prohibits you from making any further disclosure of this information without the specific written consent of the person to whom it pertains, or as otherwise permitted by law. Any unauthorized further disclosure in violation of state law may result in a fine or care home sentence or both. A general authorization for the release of medical or other information is NOT sufficient authorization for further disclosure. Encounters Encounter Providers Location Date Indications Data Source(s ) Outpatient Admitter: JEANNETTE Schroeder 06/14/2019 [facility] 08:33:[address] EST Outpatient Attender: JEANNETTE Schroeder 06/14/2019 [facility] 06:46:00 AM Medical [place] CARRdmitter: JEANNETTE EST - [place] 06/14/2019 JEANNETTEReferrer: JEANNETTE 01:27:00 PM [place] JEANNETTE EST Outpatient Admitter: JEANNETTE Schroeder 06/07/2019 [facility] [place] [facility] [place] JEANNETTE 08:55:[address] EST Outpatient Attender: JEANNETTE Schroeder 06/07/2019 [facility] [place] [facility] [place] 07:11:00 AM Medical Karyne r Jenniferitter: JEANNETTE EST - [place] 06/07/2019 JEANNETTEReferrer: JEANNETTE 01:27:00 PM [place] JEANNETTE EST Insurance Providers Payer name Policy type Policy ID Covered Covered republican's Policy P sg / Coverage republican ID relationship to [employer] Inf ormation type barron MEDICARE [id number] SP [id number] PPO [id number] SP [id number] BLUE CROSS O [id number] 01 [id number] SECONDARY M [id number] 01 [id number] Healthfirst [id number] S [id number] Medicare [facility] Care Medicare-Blue [id number] S [id number] Cross/Blue Shield Medicare [id number] S [id number] A [employer] MEDICARE [id number] SP [id number] A Problems, Conditions, and Diagnoses Code Display Name Description Problem Effective Data Type Dates Source(s) G56.01 Carpal tunnel CARPAL TUNNEL Diagnosis 06/14/2019 [facility] syndrome, right upper SYNDROME, RIGHT UPPER 06: 46:00 AM [facility] G56.02 Carpal tunnel CARPAL TUNNEL Diagnosis 06/07/2019 [facility] syndrome, left upper SYNDROME, LEFT UPPER 07:11 :00 AM [facility] 272.0 PURE HYPERCHOLESTEROLEMIA Diagnosis 09/14/2018 [facility] HYPERCHOLESTEROLEMIA 07:04:01 PM ([facility]) Results ID Date Data Source [id number] 12/30/2019 09:00:00 AM EDT [facility] Name Value Range Interpretation Description Data Sup porting Code Source(s) Document(s ) SARS [facility] CORONAVIRUS 2 RNA This lab was ordered by [facility] and reported by [facility]. Procedure Social History Code Duration Value Status Description Data Source(s ) Smoking Unknown if ever completed Unknown if ever Judy Caicedo smoked [facility]
--- NOTE | 2020-04-15 03:06 | PDOC ---
Attending Attestation - Resident Resident Name: Guy Ferrell - ED Attending Attestation I have performed the following: I have examined & evaluated the patient, The case was reviewed & discussed with the resident, I agree w/resident's findings & plan - HPI HPI: 04/15/20 05:23 Pt comes with chest discomfort. SHe is on multiple meds, including 3 water pills. - Physicial Exam PE: 04/15/20 05:24 Afebrile heart S1S2 RRR lungs CTA B abd soft minimal tenderness that is diffuse no flank pain Pt's legs bilaterally are obese and 1+ edema - Medical Decision Making 04/15/20 05:26 Pt has +trop boderline; CHF; BNP 2200s Pt has cardiolmegaly/boot shaped heart on CXR CBC normal Heart Score/ECG Review - ECG Intrepretation Rhythm: Regular Rhythm - Cadet Cadet: Left Cadet Deviation - P and HI Delta Wave(s) Present: No WPW: No - QRS Widened: LBBB Poor R Wave Progression: No Q Wave Present: No - ST and T Early Repolarization: No Flattened T Waves: Yes Comment:: 04/15/20 03:28 LATERAL FLIPPED T WAVES Discharge - Discharge Information Problems reviewed: Yes Clinical Impression/Diagnosis: Elevated troponin, Chest pain at rest Condition: Fair - Follow up/Referral - Patient Discharge Instructions - Post Discharge Activity
[2020-04-15] MEDS ORDERED: ASPIRIN 81 MG CHEWABLE TABLETS PO ONE (03:07)
[2020-04-15] MEDS ORDERED: MAG HYDROX/AL HYDROX/SIMETH 30 ML UNIT-DOSE CUP PO ONE (03:24)
[2020-04-15] MEDS ORDERED: FAMOTIDINE 20 MG/50 ML IVPB 20 MG/50 ML MG IVPB ONE (03:24)
--- NOTE | 2020-04-15 03:42 | PDOC ---
History of Present Illness - General Chief Complaint: Chest Pain Stated Complaint: CHEST PAIN Time Seen by Provider: 04/15/20 02:50 - History of Present Illness Initial Comments: 04/15/20 03:45 84 yo F w/ PMHx chronic gastritis and emphysema presents w/ substernal chest pressure since this afternoon. She woke up, sat up, and then she started to feel the pain. It does not radiate anywhere and is not associated w/ n/v, syncope, lightheadedness, or diaphoresis. She cannot identify any relieving or exacberating factors. She recently underwent endoscopy to investigate possible h. pylori infection. She endorses a recent dx of gallstone for which no intervention was done. Denies recent illness; no fever, rash, sore throat. 04/15/20 03:47 Past History - Medical History Allergies/Adverse Reactions: Allergies Allergy/AdvReac Type Severity Reaction Status Date / Time hydrochlorothiazide Allergy Intermediate Hives Verified 04/15/20 03:10 [From Benicar HCT] olmesartan medoxomil Allergy Intermediate Hives Verified 04/15/20 03:10 [From Benicar HCT] coffee (Coffea arabica) Allergy Mild Verified 04/15/20 03:10 Bananas Allergy Intermediate Swelling Uncoded 04/15/20 03:10 Home Medications: Ambulatory Orders Atorvastatin Calcium [Lipitor] 10 mg PO DAILY 08/12/17 Apixaban [Eliquis] 2.5 mg PO BID 04/15/20 Budesonide/Formeterol Fumarate [SYMBICORT 160/4.5mcg -] 2 inh PO BID 04/15/20 Empagliflozin [Jardiance] 10 mg PO DAILY 04/15/20 Furosemide [Lasix] 40 mg PO DAILY 04/15/20 Lipase/Protease/Amylase [Zenpep Dr 40,000 Unit Capsule] 1 cap PO TID 04/15/20 Lisinopril 10 mg PO DAILY 04/15/20 Metoprolol Succinate 12.5 mg PO DAILY 04/15/20 Multivitamins [Multivit ([facility] Formulary)] 1 tab PO DAILY 04/15/20 Polyethylene Glycol 3350 [Miralax 119 gm Btl -] 17 gm PO DAILY 04/15/20 Potassium Chloride 40 meq PO DAILY 04/15/20 Rifaximin [Xifaxan -] 550 mg PO TID 04/15/20 Simethicone [Gas Relief] 80 mg PO QID PRN 04/15/20 Spironolactone [Aldactone] 25 mg PO DAILY 04/15/20 Pantoprazole Sodium [Protonix -] 40 mg PO DAILY #30 tablet.ec 04/16/20 Sucralfate [Carafate -] 1 gm PO QID #30 tablet 04/16/20 Anemia: No Asthma: No Cancer: No Cardiac Disorders: Yes (H/O PE.) CVA: No COPD: Yes CHF: No Dementia: No Diabetes: No GI Disorders: No Disorders: Yes (prolapse uterus) HTN: Yes Hypercholesterolemia: Yes Liver Disease: No Seizures: No Thyroid Disease: No - Surgical History Abdominal Surgery: Yes (rt inguinal hernia) Appendectomy: No Cardiac Surgery: No Cholecystectomy: No Neurologic Surgery: No Orthopedic Surgery: No - Reproductive History Is Patient Now?: No Cervical CA: No Dysfunctional Uterine Bleeding: No Therapeutic (s) & number: No - Immunization History Immunization Up to Date: Yes - Psycho-Social/Smoking History Smoking Status: No Smoking History: Never smoked Have you smoked in the past 12 months: No Number of Cigarettes Smoked Daily: 0 Review of Systems - Review of Systems Able to Perform ROS?: Yes Is the patient limited Occitan proficient: No Constitutional: No: Chills, Diaphoresis, Fever, Weakness HEENTM: Yes: Tinnitus. No: Blurred Vision, Recent change in vision Respiratory: Yes: Shortness of Breath, SOB with Exertion. No: Cough Cardiac (ROS): Yes: Chest Pain. No: Lightheadedness, Syncope ABD/GI: No: Constipated, Diarrhea : No: Dysuria, Flank Pain Musculoskeletal: Yes: Back Pain, Muscle Pain Integumentary: No: Bruising, Lesions Neurological: No: Headache, Weakness Endocrine: No: Symptoms Reported Hematologic/Lymphatic: No: Symptoms Reported All Other Systems: Reviewed and Negative *Physical Exam - Vital Signs Last Vital Signs Temp Pulse Resp BP Pulse Ox 97.8 F 87 19 115/66 97 04/15/20 02:40 04/15/20 02:40 04/15/20 02:40 04/15/20 02:40 04/15/20 02:40 - Physical Exam General Appearance: Yes: Nourished, Appropriately Dressed, Disheveled HEENT: positive: EOMI, Normal ENT Inspection Neck: positive: Trachea midline, Supple Respiratory/Chest: positive: Chest Tender (costochondral junction on R), Lungs Clear, Normal Breath Sounds. negative: Accessory Muscle Use, Labored Respiration Cardiovascular: positive: Regular Rhythm, Regular Rate Vascular Pulses: Femoral (R): 2+, Femoral (L): 2+, Carotid (R): 1+, Carotid (L): 1+, Dorsalis-Pedis (R): 1+, Doralis-Pedis (L): 1+ Gastrointestinal/Abdominal: positive: Normal Bowel Sounds, Soft Musculoskeletal: positive: Normal Inspection. negative: CVA Tenderness Extremity: positive: Normal Capillary Refill Integumentary: positive: Normal Color, Dry, Warm Neurologic: positive: Fully Oriented, Alert ED Treatment Course - LABORATORY CBC & Chemistry Diagram: 04/16/20 06:27 04/16/20 06:27 Discharge - Discharge Information Problems reviewed: Yes Clinical Impression/Diagnosis: Elevated troponin, Chest pain at rest Condition: Improved Disposition: HOME - Admission Yes - Follow up/Referral - Patient Discharge Instructions - Post Discharge Activity
[2020-04-15 03:44] LABS: BASO % 0.4 % (0-2.0); EOS % 2.5 % (0-4.5); HEMATOCRIT 48.7 % (32.4-45.2); HEMOGLOBIN 16.1 GM/dL (10.7-15.3); LYMPH % 34.2 % (8-40); MCH 30.5 pg (25.7-33.7); MCHC 33.1 g/dl (32.0-36.0); MEAN CELL VOLUME 91.9 fl (80-96); MEAN PLT VOLUME 8.1 fl (7.5-11.1); MONO % 4.3 % (3.8-10.2); NEUT % 58.6 % (42.8-82.8); PLATELET COUNT 138 K/MM3 (134-434); RBC 5.29 M/mm3 (3.60-5.2); RDW 16.3 % (11.6-15.6); WHITE BLOOD COUNT 5.5 K/mm3 (4.0-10.0)
[2020-04-15 03:55] LABS: INR 1.23 (0.83-1.09); PROTHROMBIN TIME (PATIENT) 14.6 SEC (9.7-13.0)
[2020-04-15 03:59] VITALS: BMI 35.4
[2020-04-15 04:08] LABS: ALBUMIN 3.8 g/dl (3.4-5.0); BILIRUBIN,TOTAL 0.7 mg/dL (0.2-1); BLOOD UREA NITROGEN 28.6 mg/dL (7-18); CALCIUM 9.5 mg/dL (8.5-10.1); CREATININE 1.3 mg/dL (0.55-1.3); POTASSIUM 4.3 mmol/L (3.5-5.1); TOT PROT 7.6 g/dl (6.4-8.2)
--- NOTE | 2020-04-15 05:03 | PN ---
Teaching Attending Note Name of Resident: Jonny Mock ATTENDING PHYSICIAN STATEMENT I saw and evaluated the patient. I reviewed the resident's note and discussed the case with the resident. I agree with the resident's findings and plan as documented. SUBJECTIVE: 84yoF with h/o CAD, PE on apixaban, HTN, chronic gastritis, emphysema, and arth ritis who presents with lower sternal/epigastric pain beginning at 1AM. Patient reports she has been undergoing GI work up for chronic abdominal discomfort that began about 7 months ago. She was not able to have an EGD because her naval aircrewman operator was concerned about her heart, which she states was "too slow". CT abd/pelvis done in February showed cholelithiasis and cardiomegaly without other acute findings. Reports being treated with numerous antibiotics within the past year and was just started on rifaximin 2 days prior to presentation. She has also been followed closely by her cinder worker who started her on Lasix recently; believes she had a stress test within the past year. Denies palpitations, lightheadedness, diaphoresis, SOB, fever, chills, melena, hematochezia. Hemodynamically stable on arrival to the ED. Labs notable for troponin 0.06. EKG showed left bundle branch block seen on prior EKGs. CXR shows cardiomegaly but no other acute findings. Patient received aspirin 162mg as well as Mylanta and famotidine with improvement in symptoms. OBJECTIVE: Vital Signs - 24 hr 04/15/20 02:40 Temperature 97.8 F Pulse Rate 87 Respiratory 19 Rate Blood Pressure 115/66 O2 Sat by Pulse 97 Oximetry (%) EXAM Gen: awake, alert, NAD HEENT: NC/AT. Moist mucous membranes CV: RRR, no MRG appreciated Resp: Unlabored, CTAB Abd: Soft, nondistended. Tender to palpation epigastric area and LLQ without rebound/guarding Ext: Trace pitting edema BLE Neuro: face symmetric, speech fluent, moving all extremities Psych: AOx3, appropriate mood/affect Laboratory Results - last 24 hr 04/15/20 04/15/20 04/15/20 03:30 03:30 03:30 WBC 5.5 RBC 5.29 H Hgb 16.1 H Hct 48.7 H D MCV 91.9 MCH 30.5 MCHC 33.1 RDW 16.3 H Plt Count 138 MPV 8.1 Absolute Neuts (auto) 3.2 Neutrophils % 58.6 Lymphocytes % 34.2 D Monocytes % 4.3 Eosinophils % 2.5 Basophils % 0.4 Nucleated RBC % 0 PT with INR 14.60 H INR 1.23 H PTT (Actin FS) 33.0 Sodium 141 Potassium 4.3 Chloride 107 Carbon Dioxide 27 Anion Gap 7 L BUN 28.6 H Creatinine 1.3 Est GFR (CKD-EPI)AfAm 43.93 Est GFR (CKD-EPI)NonAf 37.91 Random Glucose 87 Calcium 9.5 Total Bilirubin 0.7 AST 31 ALT 36 Alkaline Phosphatase 83 Troponin I 0.06 H Total Protein 7.6 Albumin 3.8 Imaging, EKG reviewed in chart ASSESSMENT AND PLAN: 84yoF with h/o CAD, PE on apixaban, HTN, chronic gastritis, emphysema, and arthritis who presents with lower sternal/epigastric pain beginning at 1AM. Atypical chest pain/epigastric pain Suspect GI etiology of presenting symptoms; pain is better localized to epigastric area with some tenderness to palpation, in setting of chronic GI upset Has ongoing outpatient work up with GI and cardiology Troponin 0.06 on admission which appears to be around her baseline; EKG shows old LBBB Echo 2017: Normal LV and RV motion, trace mitral regurgitation Pain improved with antacids - consult GI and cardiology, obtain results of outpatient work up - tele - cycle troponin - continue symptomatic treatment with antacids Emphysema: continue albuterol PRN HTN: continue home meds h/o PE: on Eliquis. Reports DVT/PE 7 years ago, unclear if ongoing anticoagulation is still indicated. F/u with PCP/cardiology DVT ppx: continue Eliquis
[2020-04-15 05:23] LABS: N-TERMINAL BNP 2221.6 pg/ml (5-450)
[2020-04-15 05:38] LABS: EPI CELLS 18 /uL (0-25.1); HYALINE CASTS 1 /uL (0-3.1); URINE APPEARANCE CLEAR; URINE BACTERIA 104 /uL (0-1359); URINE BILIRUBIN NEGATIVE (NEGATIVE); URINE COLOR YELLOW; URINE GLUCOSE (UA) 3+ (NEGATIVE); URINE KETONE NEGATIVE (NEGATIVE); URINE LEUK ESTERASE TRACE (NEGATIVE); URINE NITRITE NEGATIVE (NEGATIVE); URINE PROTEIN NEGATIVE (NEGATIVE); URINE RBC 11 /uL (0-23.9); URINE UROBILINOGEN 0.2 mg/dL (0.2-1.0); URINE WBC 22 /uL (0-25.8)
--- NOTE | 2020-04-15 06:17 | HP ---
CHIEF COMPLAINT: chest Pain PCP: Dr. Karol Novak Cardiology: Dr. Veras Gastroenterology: Dr. Erickson HISTORY OF PRESENT ILLNESS: Pt. is an 84 y.o. F w/ PMHx. of Chronic Gastritis, HFpEF?, Emphysema/COPD, Morbid Obesity, Hx. of DVT and PE (on Eliquis 2.5mg Daily), HTN, CAD, HLD, and Hx. of Uterine Prolapse, presents for "chest pressure" that started this morning at 1AM after waking up and sitting up. Pt. states that this has not happened before and that nothing made it better or worse until she came to the ED and was given some medications. Pt. states she started a Zenpep on Thursday and attributes her pain to this medication. Pt. states that she has never had an EGD "because of her heart." Pt. endorses intermittent biliary colic that is now resolved. Pt. denies any diarrhea currently. Pt. follows with Dr. Veras and Dr. Erickson and was started on many medications this year including Lasix. Pt. endorses decreased PO intake recently and also attributes this to Zenpep. Pt. denies any fever, chills, diaphoresis, shortness of breath, headache, nausea, vomiting, numbness in extremities, dysuria, blood in stool or urine, lightheadedness or difficulty swallowing. Pt. has undergone H.Pylori testing twice which has been negative. Pt. was treated with Augmentin for 14 days starting March 13, Pt. unclear w hy. Call Placed to Pharmacy to verify medications. ER course was notable for: (1)ASA 162, BNP, CBC, CMP, CXR, Cardiac Enzymes (2) Morphine Pepcid, (3) Recent Travel: No PAST MEDICAL HISTORY: As above PAST SURGICAL HISTORY: R. Inguinal hernia Repair Social History: Smoking: Denies, though endorses extensive 2nd-hand smoke history Alcohol: Denies Drugs: Denies Pt. uses walker at home and electric wheelchair when going out into the community Allergies hydrochlorothiazide [From Benicar HCT] Allergy (Intermediate, Verified 04/15/20 03:10) Hives reports itching, rash upper extremities. olmesartan medoxomil [From Benicar HCT] Allergy (Intermediate, Verified 04/15/20 03:10) Hives reports itching, rash upper extremities. coffee (Coffea arabica) Allergy (Mild, Verified 04/15/20 03:10) Pt. states, causes massive headaches Bananas Allergy (Intermediate, Uncoded 04/15/20 03:10) Swelling Pt. states, throat swells when consumed HOME MEDICATIONS: Home Medications Medication Instructions Recorded Atorvastatin Calcium [Lipitor] 10 mg PO HS 08/12/17 Cholecalciferol (Vitamin D3) 1,000 unit PO DAILY 08/12/17 [Vitamin D3 -] Albuterol 0.083% Nebulizer Kat 1 neb NEB Q4H #30 vial 01/12/19 [Ventolin 0.083% Nebulizer Soln -] Nebulizer [Aeroeclipse II] 1 each ASDIR #1 each 01/12/19 Apixaban [Eliquis] 2.5 mg PO BID 04/15/20 Budesonide/Formeterol Fumarate 2 inh PO BID 04/15/20 [SYMBICORT 160/4.5mcg -] Empagliflozin [Jardiance] 10 mg PO DAILY 04/15/20 Furosemide [Lasix] 40 mg PO DAILY 04/15/20 Lipase/Protease/Amylase [Zenpep Dr 1 cap PO TID 04/15/20 40,000 Unit Capsule] Lisinopril 10 mg PO DAILY 04/15/20 Metoprolol Succinate 25 mg PO DAILY 04/15/20 Multivitamins [Tab-A-Vit -] 1 tab PO DAILY 04/15/20 Pantoprazole Sodium [Protonix -] 20 mg PO DAILY 04/15/20 Polyethylene Glycol 3350 [Miralax 17 gm PO DAILY 04/15/20 (For Daily Use) -] Potassium Chloride 40 meq PO DAILY 04/15/20 Rifaximin [Xifaxan] 0 mg PO DAILY 04/15/20 Rifaximin [Xifaxan] 550 mg PO TID 04/15/20 Simethicone [Gas Relief] 80 mg PO QID PRN 04/15/20 Spironolactone [Aldactone] 25 mg PO DAILY 04/15/20 REVIEW OF SYSTEMS As above. PHYSICAL EXAMINATION Vital Signs - 24 hr 04/15/20 04/15/20 02:40 05:56 Temperature 97.8 F Pulse Rate 87 Pulse Rate [ 91 H Apical] Respiratory 19 21 H Rate Blood Pressure 115/66 Blood Pressure 126/72 [Right Arm] O2 Sat by Pulse 97 96 Oximetry (%) GENERAL: Awake, alert, and oriented, in no acute distress. HEAD: Normal with no signs of trauma. EYES: extraocular movements intact, sclera anicteric, conjunctiva clear. EARS, NOSE, THROAT: Ears normal, nares patent, oropharynx clear without exudates. Moist mucous membranes. NECK: Normal range of motion, no JVD LUNGS: Breath sounds equal, clear to auscultation bilaterally anteriorly. No wheezes, and no crackles. No accessory muscle use. HEART: Regular rate and rhythm, normal S1 and S2 without murmur ABDOMEN: Soft, obese, epigastric and LLQ tenderness, not distended, normoactive bowel sounds, no guarding, no rebound, no masses. No hepatomegaly or splenomegaly. UPPER EXTREMITIES: 2+ radial pulses, warm, well-perfused. No cyanosis. No clubbing. LOWER EXTREMITIES: 2+ dorsal pedal pulses, warm, well-perfused. Left ankle tenderness. 2+/3+ peripheral edema. NEUROLOGICAL: Moves all extremities. Normal speech. Gait not assesed PSYCHIATRIC: Cooperative. Good eye contact. Appropriate mood and affect. SKIN: Warm, dry, Laboratory Results - last 24 hr 04/15/20 04/15/20 04/15/20 03:30 03:30 03:30 WBC 5.5 RBC 5.29 H Hgb 16.1 H Hct 48.7 H D MCV 91.9 MCH 30.5 MCHC 33.1 RDW 16.3 H Plt Count 138 MPV 8.1 Absolute Neuts (auto) 3.2 Neutrophils % 58.6 Lymphocytes % 34.2 D Monocytes % 4.3 Eosinophils % 2.5 Basophils % 0.4 Nucleated RBC % 0 PT with INR 14.60 H INR 1.23 H PTT (Actin FS) 33.0 Sodium 141 Potassium 4.3 Chloride 107 Carbon Dioxide 27 Anion Gap 7 L BUN 28.6 H Creatinine 1.3 Est GFR (CKD-EPI)AfAm 43.93 Est GFR (CKD-EPI)NonAf 37.91 Random Glucose 87 Calcium 9.5 Total Bilirubin 0.7 AST 31 ALT 36 Alkaline Phosphatase 83 Troponin I 0.06 H B-Natriuretic Peptide 2221.6 H Total Protein 7.6 Albumin 3.8 Urine Color Urine Appearance Urine pH Ur Specific [place] Urine Protein Urine Glucose (UA) Urine Ketones Urine Blood Urine Nitrite Urine Bilirubin Urine Urobilinogen Ur Leukocyte Esterase Urine WBC (Auto) Urine RBC (Auto) Urine Casts (Auto) U Epithel Cells (Auto) Urine Bacteria (Auto) 04/15/20 05:07 WBC RBC Hgb Hct MCV MCH MCHC RDW Plt Count MPV Absolute Neuts (auto) Neutrophils % Lymphocytes % Monocytes % Eosinophils % Basophils % Nucleated RBC % PT with INR INR PTT (Actin FS) Sodium Potassium Chloride Carbon Dioxide Anion Gap BUN Creatinine Est GFR (CKD-EPI)AfAm Est GFR (CKD-EPI)NonAf Random Glucose Calcium Total Bilirubin AST ALT Alkaline Phosphatase Troponin I B-Natriuretic Peptide Total Protein Albumin Urine Color Yellow Urine Appearance Clear Urine pH 5.0 Ur Specific [place] 1.014 Urine Protein Negative Urine Glucose (UA) 3+ H Urine Ketones Negative Urine Blood Negative Urine Nitrite Negative Urine Bilirubin Negative Urine Urobilinogen 0.2 Ur Leukocyte Esterase Trace Urine WBC (Auto) 22 Urine RBC (Auto) 11 Urine Casts (Auto) 1 U Epithel Cells (Auto) 18 Urine Bacteria (Auto) 104 ASSESSMENT/PLAN: Pt. is an 84 y.o. F w/ PMHx. of Chronic Gastritis, HFpEF?, Emphysema/COPD, Morbid Obesity, Hx. of DVT and PE (on Eliquis 2.5mg Daily), HTN, CAD, HLD, and Hx. of Uterine Prolapse, presents for "chest pressure" that started this morning at 1AM after waking up and sitting up. Pt. admitted for ACS rule out and for gastritis resistant to outpatient therapies. #Chest Pain R/o ACS -low suspicion #HFrEF EKG notable for new Q waves in V1 and V2, LBBB(also in prior), new TWI in aVF Trop elevated to 0.08, will trend, most likely demand ischemia Cardiology consult appreciated, clearance for EGD appreciated if possible Pt. noted to be on HFrEF medications records from outpatient cardiac workup appreciated BNP elevated to 2000+ despite MO, unclear baseline however Pt. does not appear to be in overt CHF exacerbation CXR: no acute pathology per my read, some increased pulmonary vasculature markings however clear and sharp CDA clarification about ongoing reduced dose Eliquis appreciated as more recent CTA and Duplex has shown clot has resolved, in addtiona Pt. does not meed criteria currently for reduced dose. c/w Telemetry monitoring #Acute on chronic gastritis - high suspicion Hx. of negative H. Pylori Ag testing in February c/w Pepcid and simethicone Increased Protonix to 40mg daily Discontinue Zenpap GI consult appreciated for EGD and clarification about Abx. course over the year (empiric treatment for H. Pylori? indication for Zenpap?) #ELLIE likely 2/2 to decreased PO intake with continued diuretic use Pt.'s baseline Cr. is ~0.9; currently 1.3 hold Lasix, c/w Aldactone as this has mortality benefit Holding Lisinopril #COPD/Emphysema c/w home medication #DVT Ppx. c/w Eliquis 2.5mg BID #Dispo Telemetry as observation, may switch to inpatient if Pt. is deemed a candidate for further testing Family Medical History Family History: As Documented Visit type - Medication Review Med list reviewed for High Risk Meds patients 65 and older: Yes - Emergency Visit Emergency Visit: Yes Care time: The patient presented to the Emergency Department on the above date and was hospitalized for further evaluation of their emergent condition. - New Patient This patient is new to me today: Yes Date on this admission: 04/15/20 - Critical Care Critical Care patient: No ATTENDING PHYSICIAN STATEMENT I saw and evaluated the patient. I reviewed the resident's note and discussed the case with the resident. I agree with the resident's findings and plan as documented. SUBJECTIVE: OBJECTIVE: ASSESSMENT AND PLAN:
[2020-04-15] MEDS ORDERED: SIMETHICONE 80 MG TAB.CHEW (FP) PO PRN (06:52)
--- OUTSIDE RECORDS SUMMARY | 2020-04-15 07:02 | XMS ---
:1935 Author Organization [facility] Providers Name Role Phone [...] is protected by Article 27-F of the [facility] Public Health law. If you continue you may haveaccess to information: Regarding HIV / AIDS; Provided by facilities licensed or operated by the [facility] Office of Mental Health; or Provided by the [facility] Office for People With Developmental Disabilities. If such information is present, then the following [facility] mandated warning applies: This information has been [...] law may result in a fine or intermediate sentence or both. A general authorization for [...] name Policy type Policy ID Covered Covered constitution party's Policy P sg / Coverage constitution party ID relationship to [facility] ormation type barron MEDICARE [id number] SP [id number] PPO [id number] SP [id number] BLUE CROSS O [id number] 01 [id number] SECONDARY M [id number] 01 [id number] [employer] [id number] S [id number] Medicare [facility] Medicare-Blue [id number] S [id number] Cross/Blue Shield Medicare [id number] S [id number] A [employer] Services MEDICARE [id number] SP [id number] A Problems, Conditions, and Diagnoses Code Display [...] [facility]) Results ID Date Data Source [id number] 12/30/2019 09:00:00 AM EDT [facility] Name Value Range Interpretation Description Data Sup porting Code Source(s) Document(s ) SARS [facility] CORONAVIRUS 2 RNA This lab was ordered by [facility] and reported by [facility]. Procedure Social History Code Duration Value Status Description Data Source(s ) Smoking Unknown if ever completed Unknown if ever Judy Caicedo smoked [facility]
[2020-04-15] MEDS ORDERED: MAG HYDROX/AL HYDROX/SIMETH 30 ML UNIT-DOSE CUP ONE (07:49)
[2020-04-15] MEDS ORDERED: LIDOCAINE VISCOUS 2% ORAL/TOP 20 ML UNIT-DOSE CUP ONE (07:49)
[2020-04-15 07:59] LABS: N-TERMINAL BNP 2097.7 pg/ml (5-450)
[2020-04-15] MEDS ORDERED: MAG HYDROX/AL HYDROX/SIMETH -MYLANTA- ORAL SUSPENSION PO ONE (08:18)
[2020-04-15] MEDS ORDERED: LIDOCAINE VISCOUS 2% ORAL/TOP 20 ML UNIT-DOSE CUP MM ONE (08:18)
--- NOTE | 2020-04-15 09:07 | PN ---
Progress Note (short form) - Note Progress Note: Subjective: seen while she is still in ER. She complains of epigastric pain, started at 1 am , subsided by 4 am and then recured. was just given maalox and lidocaine in ER which had minimal effects. denies SOB , or palpitations. reports being compliant with her meds including lasix and eliquis. she was given a new pill to take TID ( ? name ) , sha was able to get it and start it yesterday. No N/V. No diarrhea. last BM last night which was NL. she had stress test in past 2 years, which was NL, she follows with Dr. Simms who did not perform EGD on her due to her heart being " too slow " . she reports chronic stomach problems " gas ". she reports her legs are slightly swollen. reports she can't walk at her base line Objective: Vital Signs: Last Vital Signs Temp Pulse Resp BP Pulse Ox 97.8 F 91 H 21 H 126/72 96 04/15/20 02:40 04/15/20 05:56 04/15/20 05:56 04/15/20 05:56 04/15/20 05:56 Laboratory Results - last 24 hr 04/15/20 04/15/20 04/15/20 03:30 03:30 03:30 WBC 5.5 RBC 5.29 H Hgb 16.1 H Hct 48.7 H D MCV 91.9 MCH 30.5 MCHC 33.1 RDW 16.3 H Plt Count 138 MPV 8.1 Absolute Neuts (auto) 3.2 Neutrophils % 58.6 Lymphocytes % 34.2 D Monocytes % 4.3 Eosinophils % 2.5 Basophils % 0.4 Nucleated RBC % 0 PT with INR 14.60 H INR 1.23 H PTT (Actin FS) 33.0 Sodium 141 Potassium 4.3 Chloride 107 Carbon Dioxide 27 Anion Gap 7 L BUN 28.6 H Creatinine 1.3 Est GFR (CKD-EPI)AfAm 43.93 Est GFR (CKD-EPI)NonAf 37.91 Random Glucose 87 Calcium 9.5 Total Bilirubin 0.7 AST 31 ALT 36 Alkaline Phosphatase 83 Creatine Kinase Troponin I 0.06 H B-Natriuretic Peptide 2221.6 H Total Protein 7.6 Albumin 3.8 Lipase Urine Color Urine Appearance Urine pH Ur Specific [place] Urine Protein Urine Glucose (UA) Urine Ketones Urine Blood Urine Nitrite Urine Bilirubin Urine Urobilinogen Ur Leukocyte Esterase Urine WBC (Auto) Urine RBC (Auto) Urine Casts (Auto) U Epithel Cells (Auto) Urine Bacteria (Auto) Blood Type Antibody Screen 04/15/20 04/15/20 04/15/20 05:07 07:00 07:00 WBC RBC Hgb Hct MCV MCH MCHC RDW Plt Count MPV Absolute Neuts (auto) Neutrophils % Lymphocytes % Monocytes % Eosinophils % Basophils % Nucleated RBC % PT with INR INR PTT (Actin FS) Sodium Potassium Chloride Carbon Dioxide Anion Gap BUN Creatinine Est GFR (CKD-EPI)AfAm Est GFR (CKD-EPI)NonAf Random Glucose Calcium Total Bilirubin AST ALT Alkaline Phosphatase Creatine Kinase 85 Troponin I 0.06 H B-Natriuretic Peptide 2097.7 H Total Protein Albumin Lipase 42 L Urine Color Yellow Urine Appearance Clear Urine pH 5.0 Ur Specific [place] 1.014 Urine Protein Negative Urine Glucose (UA) 3+ H Urine Ketones Negative Urine Blood Negative Urine Nitrite Negative Urine Bilirubin Negative Urine Urobilinogen 0.2 Ur Leukocyte Esterase Trace Urine WBC (Auto) 22 Urine RBC (Auto) 11 Urine Casts (Auto) 1 U Epithel Cells (Auto) 18 Urine Bacteria (Auto) 104 Blood Type Cancelled Antibody Screen Cancelled Physical Exam: NAD, awake, alert, anxious looking. cooperative CV: RRR, no MRG Lungs: bibasilar crackles ABd: obese, soft, TTP in epigastric area. no rebound tenderness or guarding . Nl BS Ext : trace edema on feet . hyperpigmentatio of feet. DP 2+ . hip flexion 2/5 b/l . ankle dorsiflexionand dorsiflexion 5/5 b/l. feet are externally rotated b/l . Imaging: cxray reviewed. echo from 08/29 was reviewed. Assessment/Plan: 84 y/o lady with h/o CAD, PE ( 7 years ago), HTN, COPD, OA, and chronic abd discomfort who presented with epigastric pain. 1- Epigastric pain: likley from GI source ( gastritis, VS GERD/esophagitis, PUD, or colon spasm/IRS) . doubt cardiac etiology. EKG with sinus rhythm, LBBB, present on EKG form 2019, QTC 499. EKG was done twice , both reviewed and not changed. flat trop - add carafate QID - cont PPI - GI eval pending . ? EGD - card consult pending . - follow RUQ US report 2- Cardiac hx of CAD, ? chronic diastolic CHF : looks euvolemic at this point. - cont home lasix 40 daily - cont spironolactone - cont K dur - cont BB - cont lisinopril 3- H/o PE : cont eliquis 2.5 BID 4- h/o Emphysema : cont Inhalers DVT Px: on eliquis . her med list was lost in ER. confirmed by wale RN . will have to reconfirm Visit type - Emergency Visit Emergency Visit: Yes ED Registration Date: 04/15/20 Care time: The patient presented to the Emergency Department on the above date and was hospitalized for further evaluation of their emergent condition. - New Patient This patient is new to me today: Yes Date on this admission: 04/15/20 - Critical Care Critical Care patient: No - Medication Review Med list reviewed for High Risk Meds patients 65 and older: Yes
--- NOTE | 2020-04-15 09:17 | CON.CARD ---
Consult Consult Specialty:: Cardiology Referred by:: Hospitalist Service Reason for Consultation:: Cardiac evaluation (Coverage for Dr. 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 She had seen Dr. Shaq Erickson for GI evaluation. She states of being told about gallstones. She was also given diuretic by Dr. Veras in the office. Currently, she states shortness of breath with the epigastric pain. Pain does not radiate. She denies fever or chills. She denies nausea, vomiting, diarrhea or abdominal pain. She denies headache or lightheadedness. - History Source History Provided By: Patient, Medical Record Limitations to Obtaining History: No Limitations - Past Medical History Cardio/Vascular: Yes: CAD, HTN, Other (Pulmonary embolism) Gastrointestinal: Yes: Gastritis Hepatobiliary: Yes: Cholelithiasis ...LMP: 04/15/20 Musculoskeletal: Yes: Osteoarthritis - Alcohol/Substance Use Hx Alcohol Use: No - Smoking History Smoking history: Never smoked Have you smoked in the past 12 months: No Aproximately how many cigarettes per day: 0 Home Medications - Allergies Allergies/Adverse Reactions: Allergies Allergy/AdvReac Type Severity Reaction Status Date / Time hydrochlorothiazide Allergy Intermediate Hives Verified 04/15/20 03:10 [From Benicar HCT] olmesartan medoxomil Allergy Intermediate Hives Verified 04/15/20 03:10 [From Benicar HCT] coffee (Coffea arabica) Allergy Mild Verified 04/15/20 03:10 Bananas Allergy Intermediate Swelling Uncoded 04/15/20 03:10 - Home Medications Home Medications: Ambulatory Orders Atorvastatin Calcium [Lipitor] 10 mg PO DAILY 08/12/17 Apixaban [Eliquis] 2.5 mg PO BID 04/15/20 Budesonide/Formeterol Fumarate [SYMBICORT 160/4.5mcg -] 2 inh PO BID 04/15/20 Empagliflozin [Jardiance] 10 mg PO DAILY 04/15/20 Furosemide [Lasix] 40 mg PO DAILY 04/15/20 Lipase/Protease/Amylase [Zenpep Dr 40,000 Unit Capsule] 1 cap PO TID 04/15/20 Lisinopril 10 mg PO DAILY 04/15/20 Metoprolol Succinate 12.5 mg PO DAILY 04/15/20 Multivitamins [Multivit ([facility] Formulary)] 1 tab PO DAILY 04/15/20 Polyethylene Glycol 3350 [Miralax 119 gm Btl -] 17 gm PO DAILY 04/15/20 Potassium Chloride 40 meq PO DAILY 04/15/20 Rifaximin [Xifaxan -] 550 mg PO TID 04/15/20 Simethicone [Gas Relief] 80 mg PO QID PRN 04/15/20 Spironolactone [Aldactone] 25 mg PO DAILY 04/15/20 Pantoprazole Sodium [Protonix -] 40 mg PO DAILY #30 tablet.ec 04/16/20 Sucralfate [Carafate -] 1 gm PO QID #30 tablet 04/16/20 Review of Systems - Review of Systems Constitutional: denies: Chills, Fever Cardiovascular: reports: Shortness of Breath. denies: Chest Pain, Palpitations Respiratory: denies: Cough, Hemoptysis, Orthopnea, PND, SOB, SOB on Exertion Gastrointestinal: reports: Abdominal Pain. denies: Constipation, Diarrhea, Melena, Nausea, Rectal Bleeding, Vomiting Musculoskeletal: denies: Back Pain, Joint Pain Neurological: denies: Dizziness, Headache, Seizure, Syncope Vital Signs: Vital Signs Temperature 97.8 F 04/15/20 02:40 Pulse Rate 91 H 04/15/20 05:56 Respiratory Rate 21 H 04/15/20 05:56 Blood Pressure 126/72 04/15/20 05:56 O2 Sat by Pulse Oximetry (%) 96 04/15/20 05:56 Neck: Yes: Supple Respiratory: Yes: CTA Bilaterally Gastrointestinal: Yes: Normal Bowel Sounds, Soft. No: Tenderness Cardiovascular: Yes: Regular Rate and Rhythm JVD: No Heart Sounds: Yes: S1, S2 Murmur: Yes: Systolic Murmur, Grade 1 Edema: Yes Edema: LLE: Trace, RLE: Trace - Other Data Labs, Other Data: CBC, BMP 04/15/20 03:30 04/15/20 03:30 INR, PTT INR 1.23 (0.83-1.09) H 04/15/20 03:30 Troponin, BNP 04/15/20 04/15/20 03:30 07:00 Troponin I 0.06 H 0.06 H B-Natriuretic Peptide 2221.6 H 2097.7 H Laboratory Results - last 24 hr 04/15/20 04/15/20 04/15/20 03:30 03:30 03:30 WBC 5.5 RBC 5.29 H Hgb 16.1 H Hct 48.7 H D MCV 91.9 MCH 30.5 MCHC 33.1 RDW 16.3 H Plt Count 138 MPV 8.1 Absolute Neuts (auto) 3.2 Neutrophils % 58.6 Lymphocytes % 34.2 D Monocytes % 4.3 Eosinophils % 2.5 Basophils % 0.4 Nucleated RBC % 0 PT with INR 14.60 H INR 1.23 H PTT (Actin FS) 33.0 Sodium 141 Potassium 4.3 Chloride 107 Carbon Dioxide 27 Anion Gap 7 L BUN 28.6 H Creatinine 1.3 Est GFR (CKD-EPI)AfAm 43.93 Est GFR (CKD-EPI)NonAf 37.91 Random Glucose 87 Calcium 9.5 Total Bilirubin 0.7 AST 31 ALT 36 Alkaline Phosphatase 83 Creatine Kinase Troponin I 0.06 H B-Natriuretic Peptide 2221.6 H Total Protein 7.6 Albumin 3.8 Lipase Urine Color Urine Appearance Urine pH Ur Specific [place] Urine Protein Urine Glucose (UA) Urine Ketones Urine Blood Urine Nitrite Urine Bilirubin Urine Urobilinogen Ur Leukocyte Esterase Urine WBC (Auto) Urine RBC (Auto) Urine Casts (Auto) U Epithel Cells (Auto) Urine Bacteria (Auto) Blood Type Antibody Screen 04/15/20 04/15/20 04/15/20 05:07 07:00 07:00 WBC RBC Hgb Hct MCV MCH MCHC RDW Plt Count MPV Absolute Neuts (auto) Neutrophils % Lymphocytes % Monocytes % Eosinophils % Basophils % Nucleated RBC % PT with INR INR PTT (Actin FS) Sodium Potassium Chloride Carbon Dioxide Anion Gap BUN Creatinine Est GFR (CKD-EPI)AfAm Est GFR (CKD-EPI)NonAf Random Glucose Calcium Total Bilirubin AST ALT Alkaline Phosphatase Creatine Kinase 85 Troponin I 0.06 H B-Natriuretic Peptide 2097.7 H Total Protein Albumin Lipase 42 L Urine Color Yellow Urine Appearance Clear Urine pH 5.0 Ur Specific [place] 1.014 Urine Protein Negative Urine Glucose (UA) 3+ H Urine Ketones Negative Urine Blood Negative Urine Nitrite Negative Urine Bilirubin Negative Urine Urobilinogen 0.2 Ur Leukocyte Esterase Trace Urine WBC (Auto) 22 Urine RBC (Auto) 11 Urine Casts (Auto) 1 U Epithel Cells (Auto) 18 Urine Bacteria (Auto) 104 Blood Type Cancelled Antibody Screen Cancelled Sinus tachycardia, LBBB Imaging - Results Chest X-ray: Report Reviewed (Large heart) EKG: Report Reviewed Problem List - Problems (1) COPD (chronic obstructive pulmonary disease) Code(s): J44.9 - CHRONIC OBSTRUCTIVE PULMONARY DISEASE, UNSPECIFIED Qualifiers: COPD type: unspecified COPD Qualified Code(s): J44.9 - Chronic obstructive pulmonary disease, unspecified (2) Atypical chest pain Code(s): R07.89 - OTHER CHEST PAIN (3) HTN (hypertension) Code(s): I10 - ESSENTIAL (PRIMARY) HYPERTENSION (4) Hypercholesterolemia Code(s): E78.00 - PURE HYPERCHOLESTEROLEMIA, UNSPECIFIED (5) CAD (coronary artery disease) Code(s): I25.10 - ATHSCL HEART DISEASE OF [place] CORONARY ARTERY W/O ANG PCTRS (6) Demand ischemia Code(s): I24.8 - OTHER FORMS OF ACUTE ISCHEMIC HEART DISEASE Assessment/Plan 1. Epigastric pain with underlying history of gastritis 2. 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 HTN 4. Acute on chronic LV diastolic/?systolic dysfunction, clinical class 0 NYHA classification heart failure 5. Hypercholesterolemia 6. CAD 7. COPD PLAN: 1. Continue Toprol XL 25 mg QD and Prinivil 10 mg QD 2. Continue Atorvastatin 20 mg QHS 3. Continue Eliquis 2.5 mg BID 4. Furosemide 40 mg QD and Spironolactone 25 mg QD 5. GI input to follow 6. GI prophylaxis Further plans are to follow Dr. Veras/Tracie to resume care Thursday Shoaib Julien MD
[2020-04-15] MEDS ORDERED: PATIENT'S OWN MEDICATION (NON-FORMULARY) (Empagliflozin [Jardiance] 10 MG) PO SCH (10:00)
[2020-04-15] MEDS ORDERED: FUROSEMIDE 40 MG TABLET (FP) ONE (10:09)
[2020-04-15] MEDS ORDERED: POTASSIUM CHLORIDE TABS 20 MEQ TABLET.ER (FP) PO ONE (10:09)
[2020-04-15] MEDS ORDERED: APIXABAN 2.5 MG TABLET ONE ×2 (10:10→21:12)
[2020-04-15] MEDS ORDERED: SUCRALFATE 1 GM TABLET (FP) ONE ×2 (10:10→14:11)
[2020-04-15] MEDS ORDERED: LISINOPRIL 5 MG TABLET ONE (10:10)
[2020-04-15] MEDS ORDERED: PANTOPRAZOLE 40 MG TABLET ONE (10:10)
[2020-04-15] MEDS ORDERED: FAMOTIDINE 20 MG TABLET ONE (10:10)
[2020-04-15] MEDS ORDERED: SPIRONOLACTONE 25 MG TABLET ONE (10:11)
[2020-04-15] MEDS ORDERED: metoPROLOL SUCCINATE 25 MG TAB.SR.24H (FP) ONE (10:11)
[2020-04-15] MEDS: APIXABAN 2.5 MG TABLET PO SCH ×2 (10:29→21:35)
[2020-04-15] MEDS: SPIRONOLACTONE 25 MG TABLET PO SCH (10:29)
[2020-04-15] MEDS: SUCRALFATE 1 GM TABLET (FP) PO SCH ×4 (10:29→21:35)
[2020-04-15] MEDS: LISINOPRIL 10 MG TABLET PO SCH (10:30)
[2020-04-15] MEDS: PANTOPRAZOLE 40 MG TABLET PO SCH (10:30)
[2020-04-15] MEDS: metoPROLOL SUCCINATE 25 MG TAB.SR.24H (FP) PO SCH (10:30)
[2020-04-15] MEDS: FAMOTIDINE 20 MG TABLET PO SCH (10:30)
[2020-04-15] MEDS: FUROSEMIDE 40 MG TABLET (FP) PO SCH (10:30)
[2020-04-15] MEDS: POTASSIUM CHLORIDE TABS 20 MEQ TABLET.ER (FP) PO SCH (10:31)
[2020-04-15] MEDS: BUDESONIDE/FORMETEROL FUMARATE 160/4.5 mcg INHALER IH SCH ×2 (10:31→22:00)
--- NOTE | 2020-04-15 11:18 | CON.GI ---
Consult Consult Specialty:: Gastroenterology ( covering Dr Erickson) Referred by:: Dr Jonyn Mock Reason for Consultation:: Chest pain - History of Present Illness Chief Complaint: Lower retrosternal pain that Luis attributes to Zenpep History of Present Illness: 84F presents with lower constant retrosternal pain that she attributes to having been started on Zenpep. No N/V , dysphagia or early satiety. Denies heartburn. Has reflux and cricopharyngeal bar on 01/29 UGI series. Tells me that she was unable to have an EGD due to her heart disease. She is followed by Dr Erickson for chronic abdominal pain. She reports having had a colonoscopy with Dr Landers several years ago and was told of diverticular disease. Had pulmonary embolism remotely. Reports that she has COPD but denies having diabetes mellitus. Denies sleep apnea although this was found on sleep study. Reports that she has a daily well formed BM and has no bleeding. - History Source History Provided By: Patient Limitations to Obtaining History: Poor Historian - Past Medical History Cardio/Vascular: Yes: CAD, HTN Pulmonary: Yes: COPD, Pulmonary Embolus, Sleep Apnea Gastrointestinal: Yes: Diverticulosis, Gastritis Hepatobiliary: Yes: Cholelithiasis (sludge), Other (fatty liver) ...LMP: 04/15/20 ...: No Musculoskeletal: Yes: Osteoarthritis - Past Surgical History Past Surgical History: Yes: Colonoscopy, Hernia Repair (RIH), Tonsillectomy Additional Surgical History: Bilateral carpal tunnel surgery. RUE abscess drainage - Alcohol/Substance Use Hx Alcohol Use: No History of Substance Use: reports: None - Smoking History Smoking history: Never smoked Have you smoked in the past 12 months: No Aproximately how many cigarettes per day: 0 - Social History Usual Living Arrangement: Alone ADL: Independent Occupation: retired nursing specialist Place of : [facility] History of Recent Travel: No Home Medications - Allergies Allergies/Adverse Reactions: Allergies Allergy/AdvReac Type Severity Reaction Status Date / Time hydrochlorothiazide Allergy Intermediate Hives Verified 04/15/20 03:10 [From Benicar HCT] olmesartan medoxomil Allergy Intermediate Hives Verified 04/15/20 03:10 [From Benicar HCT] coffee (Coffea arabica) Allergy Mild Verified 04/15/20 03:10 Bananas Allergy Intermediate Swelling Uncoded 04/15/20 03:10 - Home Medications Home Medications: Ambulatory Orders Atorvastatin Calcium [Lipitor] 10 mg PO HS 08/12/17 Cholecalciferol (Vitamin D3) [Vitamin D3 -] 1,000 unit PO DAILY 08/12/17 Albuterol 0.083% Nebulizer Kat [Ventolin 0.083% Nebulizer Soln -] 1 neb NEB Q4H #30 vial 01/12/19 Nebulizer [Aeroeclipse II] 1 each ASDIR #1 each 01/12/19 Apixaban [Eliquis] 2.5 mg PO BID 04/15/20 Budesonide/Formeterol Fumarate [SYMBICORT 160/4.5mcg -] 2 inh PO BID 04/15/20 Empagliflozin [Jardiance] 10 mg PO DAILY 04/15/20 Furosemide [Lasix] 40 mg PO DAILY 04/15/20 Lipase/Protease/Amylase [Zenpep Dr 40,000 Unit Capsule] 1 cap PO TID 04/15/20 Lisinopril 10 mg PO DAILY 04/15/20 Metoprolol Succinate 25 mg PO DAILY 04/15/20 Multivitamins [Tab-A-Vit -] 1 tab PO DAILY 04/15/20 Pantoprazole Sodium [Protonix -] 20 mg PO DAILY 04/15/20 Polyethylene Glycol 3350 [Miralax (For Daily Use) -] 17 gm PO DAILY 04/15/20 Potassium Chloride 40 meq PO DAILY 04/15/20 Rifaximin [Xifaxan] 550 mg PO TID 04/15/20 Simethicone [Gas Relief] 80 mg PO QID PRN 04/15/20 Spironolactone [Aldactone] 25 mg PO DAILY 04/15/20 Family Medical History Other Family History: Mother in her sleep, age 70s. Father and sister estranged Review of Systems - Review of Systems Constitutional: reports: Malaise Eyes: reports: No Symptoms HENT: reports: No Symptoms Neck: reports: No Symptoms Cardiovascular: reports: Chest Pain Respiratory: reports: SOB on Exertion Gastrointestinal: reports: Abdominal Pain Physical Exam-GI Vital Signs: Vital Signs Temperature 97.8 F 04/15/20 02:40 Pulse Rate 94 H 04/15/20 09:44 Respiratory Rate 26 H 04/15/20 09:44 Blood Pressure 136/79 04/15/20 09:44 O2 Sat by Pulse Oximetry (%) 96 04/15/20 09:44 CBC,CMP WBC 5.5 K/mm3 (4.0-10.0) 04/15/20 03:30 RBC 5.29 M/mm3 (3.60-5.2) H 04/15/20 03:30 Hgb 16.1 GM/dL (10.7-15.3) H 04/15/20 03:30 Hct 48.7 % (32.4-45.2) H D 04/15/20 03:30 MCV 91.9 fl (80-96) 04/15/20 03:30 MCH 30.5 pg (25.7-33.7) 04/15/20 03:30 MCHC 33.1 g/dl (32.0-36.0) 04/15/20 03:30 RDW 16.3 % (11.6-15.6) H 04/15/20 03:30 Plt Count 138 K/MM3 (134-434) 04/15/20 03:30 MPV 8.1 fl (7.5-11.1) 04/15/20 03:30 Absolute Neuts (auto) 3.2 K/mm3 (1.5-8.0) 04/15/20 03:30 Neutrophils % 58.6 % (42.8-82.8) 04/15/20 03:30 Lymphocytes % 34.2 % (8-40) D 04/15/20 03:30 Monocytes % 4.3 % (3.8-10.2) 04/15/20 03:30 Eosinophils % 2.5 % (0-4.5) 04/15/20 03:30 Basophils % 0.4 % (0-2.0) 04/15/20 03:30 Nucleated RBC % 0 % (0-0) 04/15/20 03:30 Sodium 141 mmol/L (136-145) 04/15/20 03:30 Potassium 4.3 mmol/L (3.5-5.1) 04/15/20 03:30 Chloride 107 mmol/L (98-107) 04/15/20 03:30 Carbon Dioxide 27 mmol/L (21-32) 04/15/20 03:30 Anion Gap 7 MMOL/L (8-16) L 04/15/20 03:30 BUN 28.6 mg/dL (7-18) H 04/15/20 03:30 Creatinine 1.3 mg/dL (0.55-1.3) 04/15/20 03:30 Est GFR (CKD-EPI)AfAm 43.93 04/15/20 03:30 Est GFR (CKD-EPI)NonAf 37.91 04/15/20 03:30 Random Glucose 87 mg/dL (74-106) 04/15/20 03:30 Calcium 9.5 mg/dL (8.5-10.1) 04/15/20 03:30 Total Bilirubin 0.7 mg/dL (0.2-1) 04/15/20 03:30 AST 31 U/L (15-37) 04/15/20 03:30 ALT 36 U/L (13-61) 04/15/20 03:30 Alkaline Phosphatase 83 U/L (45-117) 04/15/20 03:30 Creatine Kinase 85 U/L (26-192) 04/15/20 07:00 Troponin I 0.06 ng/ml (0.00-0.05) H 04/15/20 07:00 B-Natriuretic Peptide 2097.7 pg/ml (5-450) H 04/15/20 07:00 Total Protein 7.6 g/dl (6.4-8.2) 04/15/20 03:30 Albumin 3.8 g/dl (3.4-5.0) 04/15/20 03:30 Lipase 42 U/L (73-393) L 04/15/20 07:00 Current Medications Generic Name Dose Route Start Last Admin Trade Name Freq PRN Reason Stop Dose Admin Apixaban 2.5 mg 04/15/20 10:00 04/15/20 10:29 Eliquis - PO 2.5 mg BID LAURA Administration Atorvastatin Calcium 10 mg 04/15/20 22:00 Lipitor - PO HS LAURA Budesonide/Formoterol Fumarate 2 puff 04/15/20 10:00 04/15/20 10:31 Symbicort 160/4.5mcg - IH Not Given BID LAURA Famotidine 20 mg 04/15/20 10:00 04/15/20 10:30 Pepcid - PO 20 mg DAILY LAURA Administration Furosemide 40 mg 04/15/20 10:00 04/15/20 10:30 Lasix - PO 40 mg DAILY LAURA Administration Lisinopril 10 mg 04/15/20 10:00 04/15/20 10:30 Prinivil PO 10 mg DAILY LAURA Administration Metoprolol Succinate 25 mg 04/15/20 10:00 04/15/20 10:30 Toprol Xl - PO 25 mg DAILY LAURA Administration Non-Formulary Medication 10 mg 04/15/20 10:00 Empagliflozin [Jardiance] PO DAILY LAURA Pantoprazole Sodium 40 mg 04/15/20 10:00 04/15/20 10:30 Protonix - PO 40 mg DAILY LAURA Administration Potassium Chloride 40 meq 04/15/20 10:00 04/15/20 10:31 K-Dur - PO Not Given DAILY LAURA Simethicone 80 mg 04/15/20 06:52 Mylicon - PO QID PRN INDIGESTION Spironolactone 25 mg 04/15/20 10:00 04/15/20 10:29 Aldactone - PO 25 mg DAILY LAURA Administration Sucralfate 1 gm 04/15/20 10:00 04/15/20 10:29 Carafate - PO 1 gm QID LAURA Administration Constitutional: Yes: Anxious Eyes: Yes: Conjunctiva Clear HENT: Yes: Normocephalic Neck: Yes: Trachea Midline Cardiovascular: Yes: Regular Rate and Rhythm Respiratory: Yes: Other (crackles at the bases) Gastrointestinal Inspection: Yes: Scars (RIH) ...Auscultate: Yes: Normoactive Bowel Sounds ...Palpate: Yes: Soft, Other (nontender) ...Rectal Exam: Yes: Deferred (declined) Edema: LLE: 3+, RLE: 3+ Neurological: Yes: Alert, Oriented Labs: CBC, BMP 04/15/20 03:30 04/15/20 03:30 INR, PTT INR 1.23 (0.83-1.09) H 04/15/20 03:30 Imaging - Results Ultrasound: Report Reviewed ( Final Report US ABDOMEN US -LIMITED Show Printer-Friendly Version Patient Name: Luis Segovia : 1935 ID: [id number] Study Date: 15-Apr-2020 09:21 Elizabeth Doan Name: LUIS SEGOVIA DEPARTMENT OF RADIOLOGY Phys: Guy Ferrell RES EM : 1935 Age: 84 Sex: F [facility] Acct: [id number] Loc: [facility] Exam Date: 04/15/20 Status: [place] [address] Unit Number: [id number] EXAM#: TYPE/EXAM: RESULT: [id number] US/ABDOMEN US -LIMITED Gastric pain. Rule out gallstone Right upper abdomen ultrasound. The liver is within normal limits in size measuring 14.3 cm in sagittal length with a slightly coarse echotexture. Gallbladder is adequately distended with a sludge layering posteriorly and without evidence of stones, wall thickening or pericholecystic free fluid. No intra or extrahepatic bile duct dilatation is s een. The right kidney measures 9.3 cm sagittal length with a simple cyst in its mid to lower portion measuring 1.8 x 1.6 cm. Visualized portion of the pancreas is within normal limits in size with mild dilatation of the pancreatic duct measuring 4 mm. Visualized portion of the proximal abdominal aorta and inferior vena cava appear unremarkable. Normal flow in the main portal vein. IMPRESSION: Mild fatty infiltration of the liver versus hepatocellular disease. Gallbladder sludge without sonographic evidence of acute cholecystitis. Mild dilatation of the pancreatic duct measuring 4 mm which is nonspecific. Right renal simple cyst measuring 1.8 cm without gross evidence of stones or hydronephrosis Reported By: Gamaliel Jimenez MD 04/15/20 1000 Technologist: Stephanie Doyle Transcribed Date/Time: 04/15/20 1000 Batting Machine Operator Insulation: Gamaliel Jimenez Printed Date/Time: By: Signed by: Gamaliel Jimenez Signed on: 15-Apr-2020 10:01) Problem List - Problems (1) Atypical chest pain Code(s): R07.89 - OTHER CHEST PAIN (2) Diverticulosis Code(s): K57.90 - DVRTCLOS OF INTEST, PART UNSP, W/O PERF OR ABSCESS W/O BLEED (3) Fatty liver Code(s): K76.0 - FATTY (CHANGE OF) LIVER, NOT ELSEWHERE CLASSIFIED (4) COPD (chronic obstructive pulmonary disease) Code(s): J44.9 - CHRONIC OBSTRUCTIVE PULMONARY DISEASE, UNSPECIFIED Qualifiers: COPD type: unspecified COPD Qualified Code(s): J44.9 - Chronic obstructive pulmonary disease, unspecified (5) Lower leg edema Code(s): R60.0 - LOCALIZED EDEMA (6) Pulmonary embolism Code(s): I26.99 - OTHER PULMONARY EMBOLISM WITHOUT ACUTE COR PULMONALE Assessment/Plan Impression: - This chest pain is atypical and cannot be readily attributed to Zenpep. She tells me that she was started on Zenpep for chronic abdominal gas pain. - Fatty liver - Diverticulosis - GB sludge Plan: -- PPI empirically for possible GERD -- May need EGD to clarify the pain etiology. Doubt that GB sludge is symptomatic Dr Erickson will assume GI care tomorrow
[2020-04-15] MEDS ORDERED: PT OWN MED DRAWER 7, Y5N ONE (18:43)
--- NOTE | 2020-04-15 19:54 | EKG ---
Test Reason : Blood Pressure : / mmHG Vent. Rate : 088 BPM Atrial Rate : 088 BPM P-R Int : 176 ms QRS Dur : 132 ms QT Int : 402 ms P-R-T Axes : 070 -30 126 degrees QTc Int : 486 ms NORMAL SINUS RHYTHM POSSIBLE LEFT ATRIAL ENLARGEMENT LEFT AXIS DEVIATION LEFT BUNDLE BRANCH BLOCK ABNORMAL ECG WHEN COMPARED WITH ECG OF 12-JAN-2019 07:28, NO SIGNIFICANT CHANGE WAS FOUND Confirmed by GILDA COONEY MD ([id number]) on 04/15/2020 7:54:24 PM Referred By: Confirmed By:GILDA COONEY MD
[2020-04-15] MEDS ORDERED: ATORVASTATIN CA 10 MG TABLET (FP) ONE (21:13)
[2020-04-15] MEDS ORDERED: ATORVASTATIN CA 20 MG TABLET (FP) PO SCH (22:00)
[2020-04-16] MEDS ORDERED: PT OWN MED DRAWER 7, Y5N ONE ×2 (06:25→10:27)
[2020-04-16 07:06] LABS: HEMATOCRIT 46.1 % (32.4-45.2); HEMOGLOBIN 15.2 GM/dL (10.7-15.3); MCH 30.2 pg (25.7-33.7); MEAN CELL VOLUME 91.4 fl (80-96); MEAN PLT VOLUME 8.1 fl (7.5-11.1); PLATELET COUNT 132 K/MM3 (134-434); RBC 5.04 M/mm3 (3.60-5.2); RDW 16.6 % (11.6-15.6)
[2020-04-16 07:29] LABS: CALCIUM 8.8 mg/dL (8.5-10.1); CREATININE 1.6 mg/dL (0.55-1.3); POTASSIUM 4.2 mmol/L (3.5-5.1)
--- NOTE | 2020-04-16 09:36 | PN ---
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 She had seen Dr. Shaq Erickson for GI evaluation. She states of being told about gallstones. She was also given diuretic by Dr. Veras in the office. Currently, she states shortness of breath with the epigastric pain. Pain does not radiate. She denies fever or chills. She denies nausea, vomiting, diarrhea or abdominal pain. She denies headache or lightheadedness. - Current Medication List Current Medications: Active Medications Apixaban (Eliquis -) 2.5 mg PO BID [facility] Last Admin: 04/15/20 21:35 Dose: 2.5 mg Documented by: Atorvastatin Calcium (Lipitor -) 10 mg PO HS [facility] Last Admin: 04/15/20 21:35 Dose: 10 mg Documented by: Budesonide/Formoterol Fumarate (Symbicort 160/4.5mcg -) 2 puff IH BID [facility] Last Admin: 04/15/20 22:00 Dose: Not Given Documented by: Famotidine (Pepcid -) 20 mg PO DAILY [facility] Last Admin: 04/15/20 10:30 Dose: 20 mg Documented by: Furosemide (Lasix -) 40 mg PO DAILY [facility] Last Admin: 04/15/20 10:30 Dose: 40 mg Documented by: Lisinopril (Prinivil) 10 mg PO DAILY [facility] Last Admin: 04/15/20 10:30 Dose: 10 mg Documented by: Metoprolol Succinate (Toprol Xl -) 25 mg PO DAILY [facility] Last Admin: 04/15/20 10:30 Dose: 25 mg Documented by: Non-Formulary Medication (Empagliflozin [Jardiance]) 10 mg PO DAILY [facility] Pantoprazole Sodium (Protonix -) 40 mg PO DAILY [facility] Last Admin: 04/15/20 10:30 Dose: 40 mg Documented by: Potassium Chloride (K-Dur -) 40 meq PO DAILY [facility] Last Admin: 04/15/20 10:31 Dose: Not Given Documented by: Simethicone (Mylicon -) 80 mg PO QID PRN PRN Reason: INDIGESTION Spironolactone (Aldactone -) 25 mg PO DAILY [facility] Last Admin: 04/15/20 10:29 Dose: 25 mg Documented by: Sucralfate (Carafate -) 1 gm PO QID [facility] Last Admin: 04/15/20 21:35 Dose: 1 gm Documented by: - Objective Vital Signs: Vital Signs Temperature 97.6 F 04/16/20 05:00 Pulse Rate 83 04/16/20 05:00 Respiratory Rate 16 04/16/20 05:00 Blood Pressure 93/55 L 04/16/20 05:00 O2 Sat by Pulse Oximetry (%) 97 04/16/20 09:07 Eyes: Yes: WNL, Conjunctiva Clear, EOM Intact HENT: Yes: WNL, Atraumatic, Normocephalic Neck: Yes: WNL, Supple, Trachea Midline Cardiovascular: Yes: WNL, Regular Rate and Rhythm Respiratory: Yes: WNL, Regular, CTA Bilaterally Gastrointestinal: Yes: WNL, Normal Bowel Sounds Genitourinary: Yes: WNL Musculoskeletal: Yes: WNL Extremities: Yes: WNL Edema: Yes Integumentary: Yes: WNL Neurological: Yes: WNL, Alert, Oriented ...Motor Strength: WNL Psychiatric: Yes: WNL Labs: CBC, BMP 04/16/20 06:27 04/16/20 06:27 INR, PTT INR 1.23 (0.83-1.09) H 04/15/20 03:30 Assessment/Plan 1. Epigastric pain with underlying history of gastritis 2. 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 HTN 4. Acute on chronic LV diastolic/?systolic dysfunction, clinical class 0 NYHA classification heart failure 5. Hypercholesterolemia 6. CAD 7. COPD PLAN: 1. Continue Toprol XL 25 mg QD and Prinivil 10 mg QD 2. Continue Atorvastatin 20 mg QHS 3. Continue Eliquis 2.5 mg BID 4. Furosemide 40 mg QD and Spironolactone 25 mg QD 5. GI consult appreciated
[2020-04-16] MEDS ORDERED: FAMOTIDINE 20 MG TABLET ONE (09:47)
[2020-04-16] MEDS ORDERED: FUROSEMIDE 40 MG TABLET (FP) ONE (09:47)
[2020-04-16] MEDS ORDERED: LISINOPRIL 10 MG TABLET ONE (09:48)
[2020-04-16] MEDS ORDERED: SUCRALFATE 1 GM/10 ML UNIT DOSE CUPS ONE (09:48)
[2020-04-16] MEDS ORDERED: metoPROLOL SUCCINATE 25 MG TAB.SR.24H (FP) ONE (09:48)
[2020-04-16] MEDS ORDERED: POTASSIUM CHLORIDE TABS 20 MEQ TABLET.ER (FP) PO ONE (09:48)
[2020-04-16] MEDS ORDERED: APIXABAN 2.5 MG TABLET ONE (09:48)
[2020-04-16] MEDS ORDERED: SPIRONOLACTONE 25 MG TABLET ONE (09:48)
[2020-04-16] MEDS: LISINOPRIL 10 MG TABLET PO SCH (10:02)
[2020-04-16] MEDS: SPIRONOLACTONE 25 MG TABLET PO SCH (10:02)
[2020-04-16] MEDS: APIXABAN 2.5 MG TABLET PO SCH (10:03)
[2020-04-16] MEDS: FAMOTIDINE 20 MG TABLET PO SCH (10:03)
[2020-04-16] MEDS: metoPROLOL SUCCINATE 25 MG TAB.SR.24H (FP) PO SCH (10:03)
[2020-04-16] MEDS: POTASSIUM CHLORIDE TABS 20 MEQ TABLET.ER (FP) PO SCH (10:03)
[2020-04-16] MEDS: FUROSEMIDE 40 MG TABLET (FP) PO SCH (10:03)
[2020-04-16] MEDS ORDERED: PANTOPRAZOLE 40 MG TABLET ONE (10:12)
[2020-04-16] MEDS: PANTOPRAZOLE 40 MG TABLET PO SCH (10:13)
[2020-04-16] MEDS: BUDESONIDE/FORMETEROL FUMARATE 160/4.5 mcg INHALER IH SCH ×2 (10:14→10:28)
[2020-04-16] MEDS: SUCRALFATE 1 GM TABLET (FP) PO SCH ×2 (10:28→13:04)
--- NOTE | 2020-04-16 12:59 | PN.GI ---
GI Progress Note Subjective: pt seen and examined at bedside. Denies abdominal pain, bloating. Denies heartburn, constipation, diarhea. 84F presents with lower constant retrosternal pain that she attributes to having been started on Zenpep. Has reflux and cricopharyngeal bar on 01/29 UGI series. Tells me that she was unable to have an EGD due to her heart disease. She reports having had a colonoscopy with Dr Landers several years ago h/o dive rticular disease. Reports that she has a daily well formed BM and has no bleeding. - Objective Vital Signs: Vital Signs Temperature 97.6 F 04/16/20 09:00 Pulse Rate 84 04/16/20 09:00 Respiratory Rate 17 04/16/20 09:00 Blood Pressure 128/66 04/16/20 09:00 O2 Sat by Pulse Oximetry (%) 97 04/16/20 09:07 Constitutional: Well Nourished, No Distress, Calm Eyes: Yes: Conjunctiva Clear, EOM Intact HENT: Yes: Atraumatic, Normocephalic Neck: Yes: Supple, Trachea Midline Cardiovascular: Yes: WNL, Regular Rate and Rhythm Respiratory: Yes: WNL, Regular, CTA Bilaterally Gastrointestinal Inspection: Yes: WNL ...Auscultate: Yes: Normoactive Bowel Sounds ...Palpate: Yes: Soft. No: Firm/Rigid, Guarding, Hepatomegaly, Mass, Pulsatile Mass, Splenomegaly, Tenderness, Tenderness, Epigastium Labs: CBC, BMP 04/16/20 06:27 04/16/20 06:27 INR, PTT INR 1.23 (0.83-1.09) H 04/15/20 03:30 Problem List - Problems (1) Atypical chest pain Assessment/Plan: resolved Code(s): R07.89 - OTHER CHEST PAIN (2) Fatty liver Assessment/Plan: plan discussed with Dr Dre ortizure test, hep profile, tumor markers pending continue PPI f/u as outpatient Code(s): K76.0 - FATTY (CHANGE OF) LIVER, NOT ELSEWHERE CLASSIFIED
--- NOTE | 2020-04-16 14:35 | PN ---
Teaching Attending Note Name of Resident: Abbie Melo ATTENDING PHYSICIAN STATEMENT I saw and evaluated the patient. I reviewed the resident's note and discussed the case with the resident. I agree with the resident's findings and plan as documented. SUBJECTIVE: no fever or chills. no pain in abd , or chest. No DAWKINS , she feels much better tod ay and wants to go home no diarrhea Physical Exam: NAD, awake, aler, calm cooperative CV: RRR, no MRG Lungs: CTAB ABD: obese, soft, NT, Nl BS Ext:no edema on legs Assessment/Plan: 84 y/o lady with h/o CAD, PE ( 7 years ago), HTN, COPD, OA, and chronic abd discomfort who presented with epigastric pain. 1- Epigastric pain: likley from GI source ( gastritis, VS GERD/esophagitis, PUD, or colon spasm/IRS) .rseolved and rsponded to carafate and PPI - cont carafate and PPI at dc - team d/w Dr. Erickson who recommended out pt follow up for EGD - avoid NSAIDS 2- mild ELLIE : likely due to the slight hypotension , in settingof being on ACEI and diuretics - hold diuretics and lisinopril fro next 3 dayas and will have her follow up with her pcp and get blood work done in 3 -4 days 3- Cardiac hx of CAD, ? chronic diastolic CHF : looks euvolemic at this point. - cont BB - hold diuretics and lisinoproil and Kcl 4- H/o PE : cont eliquis 2.5 BID 5- h/o Emphysema : cont Inhalers
--- NOTE | 2020-04-16 15:23 | DS ---
Physical Exam: SUBJECTIVE: Patient seen and examined. Pt stated that she feels well. Denied any abdominal pain. Endorsed to good appetite. Denied any fevers, chills, SOB, c/p, n/v/d. OBJECTIVE: Vital Signs Period Temp Pulse Resp BP Sys/Horowitz Pulse Ox Last 24 Hr 97.6 F-98.8 F 76-94 16-18 93-131/52-66 95-98 PHYSICAL EXAM GENERAL: Awake and alert, not in acute distress HEENT: NCAT, EOMI, moist mucus membranes CARDIAC: Regular rate and rhythm, no murmurs RESPIRATORY: CTA b/l, no wheezes ABDOMEN: Soft, nontender to palpation, nondistended. Normoactive bowel sounds. EXTREMITIES: warm, well-perfused. +edema b/l. SKIN: Hyperpigmentation of feet. Warm, dry. LABS CBC, BMP 04/16/20 06:27 04/16/20 06:27 HOSPITAL COURSE: Pt is an 84 yo F w/ PMH of chronic gastritis, CHF, COPD, obesity, DVT and PE (on Eliquis), HTN, CAD, HLD presented to ED for epigastric pain. Pt was admitted for gastritis vs. GERD vs PUD. Pt was treated with protonix and carafate with marked improvement of her symptoms. GI consulted. Pt may need EGDs outpatient a to clarify etiology of her pain. During her hospital course, pt had ELLIE (Cr 1.6, baseline 0.9). Spironolactone, lisinopril and furosemide held until she sees Dr. Novak (PCP) on 04/20 for repeat bloodwork prior to resuming these medications. Currently, pt is hemodynamically stable and her symptoms resolved. She is optimized for discharge home and follow up as an out-patient. Date of Admission:04/15/20 Date of Discharge: 04/16/20 Minutes to complete discharge: 37 Discharge Summary Problems reviewed: Yes Reason For Visit: CHEST PAIN AT REST Current Active Problems Fatty liver (Chronic) Condition: Improved - Instructions Diet, Activity, Other Instructions: Your visit: You came to the hospital because you were experiencing chest pressure and abdomi nal pain. You were admitted to the hospital for care of these symptoms. We did imaging of your chest and abdomen. You had no concerning findings of your chest. You were found to have some fatty liver and sludge in your gallbladder. You were treated with medication with improvement of your symptoms. You are now stable and may return home. Additional image findings: During imaging of your abdomen, we found some additional imaging. You were found to have a cyst on your kidney. You may follow up with your primary care doctor for further evaluation. Medications: continue to take your home medications as prescribed except for the following - hold lasix, spironolactone, potassium, and lisinopril for the next 3 days . - you need to see your primary care doctor on friday 04/20 at 11 am . . as you will need repeat blood work to check your kidney function - carafate and protonix are new medications that were added to your medications ( help the acidity in stomach ) - stop famotidine ( now you are on protonix ) Follow up: Please make an appointment to see your pl sql programmer, Dr. Erickson, 1 week from today. You may need to do an endoscopy to assess the etiology of your pain. Dr. Erickson will discuss your options with you. Please make an appointment to see a primary care provider, Dr. Novak, on Friday 04/20 at 11 am . You will need repeat blood work then . Additional instructions: -You are being discharged home -Please call 911 or come directly to the emergency department if you experience recurrence of the symptoms that brought you to the hospital, unusual headache, vision change, shortness of breath, chest pain, numbness, tingling, loss of alertness/awareness, loss of function, unusual bleeding or any alarming symptoms. Referrals: Karol Novak MD [Staff Physician] - 04/20/20 11:00 am Shaq Erickson MD [Staff Physician] - (Follow-Up Plan : , 04/26/20 at 4 :15pm) Disposition: HOME - Home Medications Comprehensive Discharge Medication List: Ambulatory Orders Atorvastatin Calcium [Lipitor] 10 mg PO DAILY 08/12/17 Apixaban [Eliquis] 2.5 mg PO BID 04/15/20 Budesonide/Formeterol Fumarate [SYMBICORT 160/4.5mcg -] 2 inh PO BID 04/15/20 Empagliflozin [Jardiance] 10 mg PO DAILY 04/15/20 Furosemide [Lasix] 40 mg PO DAILY 04/15/20 Lipase/Protease/Amylase [Zenpep Dr 40,000 Unit Capsule] 1 cap PO TID 04/15/20 Lisinopril 10 mg PO DAILY 04/15/20 Metoprolol Succinate 12.5 mg PO DAILY 04/15/20 Multivitamins [Multivit ([facility] Formulary)] 1 tab PO DAILY 04/15/20 Polyethylene Glycol 3350 [Miralax 119 gm Btl -] 17 gm PO DAILY 04/15/20 Potassium Chloride 40 meq PO DAILY 04/15/20 Rifaximin [Xifaxan -] 550 mg PO TID 04/15/20 Simethicone [Gas Relief] 80 mg PO QID PRN 04/15/20 Spironolactone [Aldactone] 25 mg PO DAILY 04/15/20 Pantoprazole Sodium [Protonix -] 40 mg PO DAILY #30 tablet.ec 04/16/20 Sucralfate [Carafate -] 1 gm PO QID #30 tablet 04/16/20 This patient is new to me today: Yes Date on this admission: 04/16/20 Emergency Visit: Yes ED Registration Date: 04/15/20 Care time: The patient presented to the Emergency Department on the above date and was hospitalized for further evaluation of their emergent condition. Critical Care patient: No - Discharge Referral Referred to [facility] No ATTENDING PHYSICIAN STATEMENT I saw and evaluated the patient. I reviewed the resident's note and discussed the case with the resident. I agree with the resident's findings and plan as documented. SUBJECTIVE: OBJECTIVE: ASSESSMENT AND PLAN:
--- NOTE | 2020-04-16 17:05 | EKG ---
Test Reason : Blood Pressure : / mmHG Vent. Rate : 105 BPM Atrial Rate : 105 BPM P-R Int : 170 ms QRS Dur : 132 ms QT Int : 378 ms P-R-T Axes : 060 -33 125 degrees QTc Int : 499 ms SINUS TACHYCARDIA POSSIBLE LEFT ATRIAL ENLARGEMENT LEFT AXIS DEVIATION LEFT BUNDLE BRANCH BLOCK ABNORMAL ECG WHEN COMPARED WITH ECG OF 15-APR-2020 02:52, NO SIGNIFICANT CHANGE WAS FOUND Confirmed by GILDA COONEY MD ([id number]) on 04/16/2020 5:04:53 PM Referred By: Confirmed By:GILDA COONEY MD
[2020-04-16 17:17] VITALS: BP 101/66; PULSE 90; TEMP 97.8
[2020-04-17 22:13] LABS: TRANSGLUTAMINASE IGA < 2 U/mL (0-3); TRANSGLUTAMINASE IGG 7 U/mL (0-5)
[2020-04-17 23:07] LABS: HEP B CORE AB, TOT Negative (Negative)
[2020-04-26 05:07] LABS: ALPHA 2 MACROGLOBULINS,QN 169 mg/dL (110-276); ALT(SGPT)P5P 23 IU/L (0-40); CHOLESTEROL TOTAL 147 mg/dL (100-199); FIBROSIS SCORE 0.32 (0.00-0.21); GLUCOSE SERUM 95 mg/dL (65-99); HEIGHT 67 in (.); WEIGHT- 226 LBS (.)
== END 2020-04-16 18:16 | disposition home or self-care (01) | DRG 392 ==
LOC: JER 02:31 → JERBED 04:43 → J4S 18:14
PROVIDERS: ADMIT Hospitalist; ATTEND Internal Medicine
DX: K29.00 Acute gastritis without bleeding (principal); N17.9 Acute kidney failure, unspecified; I50.42 Chronic combined systolic (congestive) and diastolic (congestive) heart failure; K27.9 Peptic ulcer, site unspecified, unspecified as acute or chronic, without hemorrhage or perforation; K21.9 Gastro-esophageal reflux disease without esophagitis; K76.0 Fatty (change of) liver, not elsewhere classified; N28.1 Cyst of kidney, acquired; R07.89 Other chest pain; I25.119 Atherosclerotic heart disease of native coronary artery with unspecified angina pectoris; I11.0 Hypertensive heart disease with heart failure; J44.9 Chronic obstructive pulmonary disease, unspecified; M19.90 Unspecified osteoarthritis, unspecified site; K57.90 Diverticulosis of intestine, part unspecified, without perforation or abscess without bleeding; E66.01 Morbid (severe) obesity due to excess calories; Z68.35 Body mass index [BMI] 35.0-35.9, adult; K29.50 Unspecified chronic gastritis without bleeding; I95.9 Hypotension, unspecified
CPT/HCPCS: 36415; 71045-TC-FY; 76705-TC; 80048; 80053; 81003; 82150; 82172; 82247; 82465; 82550; 82656; 82947; 82977; 83010; 83036; 83516; 83690; 83880; 83883; 84450; 84460; 84478; 84484; 85025; 85027; 85610; 85730; 86140; 86301; 86704; 86706; 86707; 86708; 86709; 86803; 87077; 87086; 87340; 93005; 93010; 97116-GP; 97161-GP; 99285-25; U0003

== ENCOUNTER 2021-04-03 11:07 | Emergency (ER) | payer OTHER, BC ==
[2021-04-03 11:16] VITALS: BP 94/63; PULSE 82; TEMP 97.5; BMI 32.2
[2021-04-03] MEDS ORDERED: predniSONE 20 MG TABLET (UD) PO ONE (12:36)
[2021-04-03] MEDS ORDERED: FAMOTIDINE 20 MG TABLET PO ONE (12:36)
[2021-04-03] MEDS ORDERED: diphenhydrAMINE HCL 25 MG CAPSULE (FP) PO ONE ×2 (12:36→12:42)
[2021-04-03] MEDS ORDERED: predniSONE 20 MG TABLET (UD) ONE ×2 (12:42→12:43)
[2021-04-03] MEDS ORDERED: FAMOTIDINE 20 MG TABLET ONE (12:43)
== END 2021-04-03 15:03 | disposition home or self-care (01) ==
LOC: JER 11:07
DX: L50.0 Allergic urticaria (principal)
CPT/HCPCS: 99283-25

== ENCOUNTER 2022-03-10 12:45 | Emergency (ER) | payer OTHER, BC ==
[2022-03-10 13:38] VITALS: BP 111/70; PULSE 85; RESP 17; TEMP 98.1; BMI 36.0
== END 2022-03-10 17:03 | disposition home or self-care (01) ==
LOC: JERFT 12:45
DX: M71.22 Synovial cyst of popliteal space [Baker], left knee (principal)
CPT/HCPCS: 93971-TC; 99284-25

== ENCOUNTER 2023-12-28 14:10 | Emergency (ER) | payer OTHER, BC ==
[2023-12-28 14:40] VITALS: TEMP 98.2; BMI 32.1
[2023-12-28] MEDS ORDERED: FAMOTIDINE 20 MG/50 ML IVPB 20 MG/50 ML MG IVPB ONE (15:25)
[2023-12-28] MEDS: FAMOTIDINE 20 MG/50 ML IVPB 20 MG/50 ML MG IVPB ONE (15:59)
[2023-12-28 16:02] LABS: BASO % 0.6 % (0-2.0); EOS % 2.1 % (0-4.5); HEMATOCRIT 43.9 % (32.4-45.2); HEMOGLOBIN 14.5 GM/dL (10.7-15.3); LYMPH % 27.2 % (8-40); MCH 31.2 pg (25.7-33.7); MCHC 33.1 g/dl (32.0-36.0); MEAN CELL VOLUME 94.3 fl (80-96); MEAN PLT VOLUME 8.3 fl (7.5-11.1); MONO % 6.2 % (3.8-10.2); NEUT % 63.9 % (42.8-82.8); PLATELET COUNT 153 10^3/uL (134-434); RBC 4.65 M/mm3 (3.60-5.2); RDW 15.2 % (11.6-15.6)
[2023-12-28 16:19] LABS: ACTIVATED PTT 47.3 SECONDS (25.2-36.5)
[2023-12-28 16:20] LABS: INR 1.39 (0.83-1.09); PROTHROMBIN TIME (PATIENT) 15.6 SEC (9.7-13.0)
[2023-12-28 16:29] LABS: POTASSIUM 4.5 mmol/L (3.5-5.1)
[2023-12-28 16:30] LABS: BLOOD UREA NITROGEN 22.4 mg/dL (7-18); CALCIUM 9.2 mg/dL (8.5-10.1)
[2023-12-28 16:32] LABS: ALBUMIN 3.7 g/dl (3.4-5.0)
[2023-12-28 16:34] LABS: CREATININE 1.3 mg/dL (0.55-1.3)
[2023-12-28 16:36] LABS: BILIRUBIN,TOTAL 0.4 mg/dL (0.2-1); TOT PROT 6.6 g/dl (6.4-8.2)
[2023-12-28 18:52] VITALS: BP 115/75; PULSE 74; RESP 15
== END 2023-12-28 20:01 | disposition home or self-care (01) ==
LOC: JER 14:10
PROC: 3E033GC Introduction of Other Therapeutic Substance into Peripheral Vein, Percutaneous Approach (ICD-10-PCS; principal; 2023-12-28)
DX: R06.02 Shortness of breath (principal); R07.9 Chest pain, unspecified; R07.0 Pain in throat; R53.83 Other fatigue; M79.89 Other specified soft tissue disorders
CPT/HCPCS: 36415; 71046-TC-FY; 80053; 83690; 84484; 85025; 85610; 85730; 93005; 93010; 99285-25

== ENCOUNTER 2024-02-15 07:54 | Inpatient (IN) | payer OTHER, BC ==
[2024-02-15] MEDS ORDERED: ALBUTEROL SO4 2.5/IPRATROPIUM 0.5 INH SOL 3 ML VIAL.NEB. NEB ONE (08:59)
[2024-02-15] MEDS ORDERED: ACETAMINOPHEN INJECTION 100 ML IVPB ONE (09:00)
[2024-02-15] MEDS ORDERED: FAMOTIDINE 20 MG/50 ML IVPB 20 MG/50 ML MG IVPB ONE (09:00)
[2024-02-15 09:04] LABS: VENOUS BASE EXCESS -4.7 mmol/L (-2-2); VENOUS O2 SATURATION 97.7 % (70-80); VENOUS PCO2 30.6 mmHg (38-52); VENOUS PH 7.405 (7.310-7.410)
[2024-02-15] MEDS: FAMOTIDINE 20 MG/50 ML IVPB 20 MG/50 ML MG IVPB ONE (09:08)
[2024-02-15] MEDS: ACETAMINOPHEN 1000 MG/100 ML BAG IVPB ONE (09:08)
[2024-02-15] MEDS: ALBUTEROL SO4 2.5/IPRATROPIUM 0.5 INH SOL 3 ML VIAL.NEB. NEB ONE (09:08)
[2024-02-15] MEDS: ALBUTEROL SO4 2.5/IPRATROPIUM 0.5 INH SOL 3 ML VIAL.NEB. NEB SCH (09:08)
[2024-02-15 09:20] LABS: BASO % 0.6 % (0-2.0); EOS % 2.3 % (0-4.5); HEMATOCRIT 41.8 % (32.4-45.2); HEMOGLOBIN 14.1 GM/dL (10.7-15.3); LYMPH % 19.5 % (8-40); MCH 31.6 pg (25.7-33.7); MCHC 33.8 g/dl (32.0-36.0); MEAN CELL VOLUME 93.4 fl (80-96); MEAN PLT VOLUME 9.2 fl (7.5-11.1); MONO % 6.4 % (3.8-10.2); NEUT % 71.2 % (42.8-82.8); PLATELET COUNT 213 10^3/uL (134-434); RBC 4.47 M/mm3 (3.60-5.2); RDW 14.8 % (11.6-15.6)
[2024-02-15 09:27] LABS: INR 1.3 (0.83-1.09); PROTHROMBIN TIME (PATIENT) 14.8 SEC (9.7-13.0)
[2024-02-15 09:30] LABS: ACTIVATED PTT 32.6 SECONDS (25.2-36.5)
[2024-02-15 09:40] LABS: POTASSIUM 4.4 mmol/L (3.5-5.1)
[2024-02-15 09:42] LABS: CALCIUM 8.9 mg/dL (8.5-10.1)
[2024-02-15 09:43] LABS: ALBUMIN 3.5 g/dl (3.4-5.0)
[2024-02-15 09:46] LABS: CREATININE 1.1 mg/dL (0.55-1.3); PHOSPHOROUS 3.1 mg/dL (2.5-4.9)
[2024-02-15 09:47] LABS: BILIRUBIN,TOTAL 0.8 mg/dL (0.2-1); TOT PROT 6.9 g/dl (6.4-8.2)
[2024-02-15 09:51] LABS: N-TERMINAL BNP 6913.5 pg/ml (5-450)
[2024-02-15] MEDS ORDERED: FUROSEMIDE 40 MG/4 ML INJECTABLE VIAL ONE (12:08)
[2024-02-15] MEDS: FUROSEMIDE 40 MG/4 ML INJECTABLE VIAL IVPUSH ONE (13:00)
[2024-02-15] MEDS ORDERED: ACETAMINOPHEN 325 MG TABLET (FP) PO PRN (13:45)
[2024-02-15] MEDS: PANTOPRAZOLE SODIUM 40 MG VIAL IVPUSH SCH (15:20)
[2024-02-15] MEDS: SACUBITRIL/VALSARTAN 24 MG-26 MG TABLET PO ONE (15:20)
[2024-02-15] MEDS: APIXABAN 2.5 MG TABLET PO ONE (15:20)
[2024-02-15] MEDS: metoPROLOL SUCCINATE 25 MG TAB.SR.24H (FP) PO ONE (15:20)
[2024-02-15] MEDS ORDERED: metoPROLOL SUCCINATE 25 MG TAB.SR.24H (FP) PO ONE (16:05)
[2024-02-15] MEDS ORDERED: APIXABAN 2.5 MG TABLET ONE ×2 (16:05→22:29)
[2024-02-15] MEDS ORDERED: PANTOPRAZOLE SODIUM 40 MG VIAL ONE (16:05)
[2024-02-15] MEDS ORDERED: SACUBITRIL/VALSARTAN 24 MG-26 MG TABLET ONE ×2 (16:05→22:29)
[2024-02-15] MEDS ORDERED: PATIENT'S OWN MEDICATION (NON-FORMULARY) (Famotidine 40 MG) PO SCH (22:00)
[2024-02-15] MEDS: SACUBITRIL/VALSARTAN 24 MG-26 MG TABLET PO SCH (22:38)
[2024-02-15] MEDS: APIXABAN 2.5 MG TABLET PO SCH (22:38)
[2024-02-16 05:07] VITALS: BMI 32.4
[2024-02-16] MEDS: IBUPROFEN 600 MG TABLET (FP) PO ONE (05:25)
[2024-02-16 09:01] LABS: BASO % 0.4 % (0-2.0); EOS % 2.8 % (0-4.5); HEMATOCRIT 43.8 % (32.4-45.2); HEMOGLOBIN 14.3 GM/dL (10.7-15.3); LYMPH % 19.9 % (8-40); MCHC 32.6 g/dl (32.0-36.0); MEAN PLT VOLUME 8.7 fl (7.5-11.1); MONO % 5.3 % (3.8-10.2); NEUT % 71.6 % (42.8-82.8); PLATELET COUNT 154 10^3/uL (134-434); RBC 4.61 M/mm3 (3.60-5.2); RDW 14.9 % (11.6-15.6); WHITE BLOOD COUNT 5.8 K/mm3 (4.0-10.0)
[2024-02-16 09:20] LABS: POTASSIUM 3.5 mmol/L (3.5-5.1)
[2024-02-16 09:25] LABS: CALCIUM 9.2 mg/dL (8.5-10.1)
[2024-02-16 09:26] LABS: ALBUMIN 3.5 g/dl (3.4-5.0); BLOOD UREA NITROGEN 18.6 mg/dL (7-18)
[2024-02-16 09:29] LABS: CREATININE 1.1 mg/dL (0.55-1.3)
[2024-02-16 09:30] LABS: BILIRUBIN,TOTAL 1.1 mg/dL (0.2-1)
[2024-02-16 09:31] LABS: TOT PROT 6.7 g/dl (6.4-8.2)
[2024-02-16] MEDS: metoPROLOL SUCCINATE 25 MG TAB.SR.24H (FP) PO SCH (09:56)
[2024-02-16] MEDS: FUROSEMIDE 40 MG/4 ML INJECTABLE VIAL IVPUSH SCH (09:57)
[2024-02-16] MEDS ORDERED: ENOXAPARIN NA (PORCINE) 40 MG/0.4 ML DISP.SYRIN SQ SCH (10:00)
[2024-02-16] MEDS ORDERED: PATIENT'S OWN MEDICATION (NON-FORMULARY) (Omeprazole [Omeprazole] 20 MG Tablet.Dr) PO SCH (10:00)
[2024-02-16] MEDS ORDERED: PATIENT'S OWN MEDICATION (NON-FORMULARY) (Famotidine 40 MG Tablet) PO SCH (10:00)
[2024-02-16] MEDS ORDERED: traMADol HCL 50 MG TABLET PO PRN (16:57)
[2024-02-16 18:37] VITALS: RESP 18
[2024-02-16] MEDS: FAMOTIDINE 20 MG TABLET PO SCH (21:24)
[2024-02-17 08:22] LABS: HEMATOCRIT 44.2 % (32.4-45.2); HEMOGLOBIN 14.6 GM/dL (10.7-15.3); MCH 31.2 pg (25.7-33.7); MCHC 33.1 g/dl (32.0-36.0); MEAN CELL VOLUME 94.2 fl (80-96); MEAN PLT VOLUME 8.8 fl (7.5-11.1); PLATELET COUNT 152 10^3/uL (134-434); RBC 4.69 M/mm3 (3.60-5.2); RDW 14.8 % (11.6-15.6); WHITE BLOOD COUNT 5.1 K/mm3 (4.0-10.0)
[2024-02-17 08:55] LABS: POTASSIUM 3.3 mmol/L (3.5-5.1)
[2024-02-17 08:57] LABS: ALBUMIN 3.2 g/dl (3.4-5.0); CALCIUM 8.9 mg/dL (8.5-10.1)
[2024-02-17 08:58] LABS: MAGNESIUM 1.8 mg/dL (1.8-2.4)
[2024-02-17 09:01] LABS: CREATININE 1.1 mg/dL (0.55-1.3); PHOSPHOROUS 3.2 mg/dL (2.5-4.9)
[2024-02-17 09:02] LABS: BILIRUBIN,TOTAL 1.2 mg/dL (0.2-1); TOT PROT 6.5 g/dl (6.4-8.2)
[2024-02-17] MEDS ORDERED: POTASSIUM CHLORIDE TABS 20 MEQ TABLET.ER (FP) PO ONE (12:40)
[2024-02-17] MEDS: POTASSIUM CHLORIDE TABS 20 MEQ TABLET.ER (FP) PO ONE (15:12)
[2024-02-18 08:47] LABS: HEMATOCRIT 45.4 % (32.4-45.2); HEMOGLOBIN 15.1 GM/dL (10.7-15.3); MCH 31.3 pg (25.7-33.7); MCHC 33.3 g/dl (32.0-36.0); MEAN CELL VOLUME 94.1 fl (80-96); MEAN PLT VOLUME 8.4 fl (7.5-11.1); PLATELET COUNT 157 10^3/uL (134-434); RBC 4.82 M/mm3 (3.60-5.2); RDW 14.6 % (11.6-15.6); WHITE BLOOD COUNT 4.6 K/mm3 (4.0-10.0)
[2024-02-18 08:51] LABS: POTASSIUM 3.7 mmol/L (3.5-5.1)
[2024-02-18 08:53] LABS: ALBUMIN 3.4 g/dl (3.4-5.0); BLOOD UREA NITROGEN 18.6 mg/dL (7-18); CALCIUM 8.8 mg/dL (8.5-10.1); MAGNESIUM 1.7 mg/dL (1.8-2.4)
[2024-02-18 08:56] LABS: CREATININE 1.2 mg/dL (0.55-1.3)
[2024-02-18 08:57] LABS: PHOSPHOROUS 3.4 mg/dL (2.5-4.9)
[2024-02-18 08:58] LABS: BILIRUBIN,TOTAL 0.8 mg/dL (0.2-1); TOT PROT 6.7 g/dl (6.4-8.2)
[2024-02-18] MEDS: ROSUVASTATIN CA 10 MG TABLET PO ONE (16:42)
[2024-02-18] MEDS: MAGNESIUM 1GM/D5W - 1 GM/100 ML IVPB IVPB ONE (16:43)
[2024-02-18 19:30] VITALS: BP 102/61; PULSE 83; TEMP 97.5
[2024-02-19] MEDS ORDERED: ROSUVASTATIN CA 10 MG TABLET PO SCH (22:00)
== END 2024-02-18 17:53 | disposition home or self-care (01) | DRG 291 ==
LOC: JER 07:54 → JERBED 12:23 → J4S 02-16 04:24 → OBSVTOIN 02-17 10:51
PROVIDERS: ADMIT Internal Medicine; ATTEND Internal Medicine
DX: I11.0 Hypertensive heart disease with heart failure (principal); I50.43 Acute on chronic combined systolic (congestive) and diastolic (congestive) heart failure; K86.2 Cyst of pancreas; I25.10 Atherosclerotic heart disease of native coronary artery without angina pectoris; I73.9 Peripheral vascular disease, unspecified; E78.5 Hyperlipidemia, unspecified; J44.9 Chronic obstructive pulmonary disease, unspecified; K29.50 Unspecified chronic gastritis without bleeding; K80.50 Calculus of bile duct without cholangitis or cholecystitis without obstruction
CPT/HCPCS: 0241U-QW; 36415; 71045-TC-FY; 71275-TC; 76705-TC; 78226-TC; 80053; 80061; 82803; 83036; 83690; 83735; 83880; 84100; 84443; 84484; 85025; 85027; 85379; 85610; 85730; 86850; 86900; 86901; 93005; 93010; 93306-TC; 97116-GP; 97161-GP; 99285-25; A9537; G0378; J0131; Q9967

== ENCOUNTER 2024-04-01 10:42 | Inpatient (IN) | payer OTHER, BC ==
[2024-04-01] MEDS: ACETAMINOPHEN 1000 MG/100 ML BAG IVPB ONE (13:26)
[2024-04-01] MEDS ORDERED: ACETAMINOPHEN INJECTION 100 ML ONE (13:46)
[2024-04-01 14:50] LABS: BASO % 0.5 % (0-2.0); HEMATOCRIT 44.8 % (32.4-45.2); HEMOGLOBIN 14.5 GM/dL (10.7-15.3); LYMPH % 28.5 % (8-40); MCH 30.7 pg (25.7-33.7); MCHC 32.3 g/dl (32.0-36.0); MEAN CELL VOLUME 95.1 fl (80-96); MEAN PLT VOLUME 9.2 fl (7.5-11.1); MONO % 5.1 % (3.8-10.2); NEUT % 63.9 % (42.8-82.8); PLATELET COUNT 172 10^3/uL (134-434); RBC 4.71 M/mm3 (3.60-5.2); RDW 17.1 % (11.6-15.6); WHITE BLOOD COUNT 3.8 K/mm3 (4.0-10.0)
[2024-04-01 14:51] LABS: INR 1.37 (0.83-1.09); PROTHROMBIN TIME (PATIENT) 15.6 SEC (9.7-13.0)
[2024-04-01 14:54] LABS: ACTIVATED PTT 37.2 SECONDS (25.2-36.5)
[2024-04-01 15:05] LABS: POTASSIUM 4.5 mmol/L (3.5-5.1)
[2024-04-01 15:07] LABS: CALCIUM 9.6 mg/dL (8.5-10.1)
[2024-04-01 15:08] LABS: ALBUMIN 3.7 g/dl (3.4-5.0); BLOOD UREA NITROGEN 15.1 mg/dL (7-18)
[2024-04-01 15:11] LABS: CREATININE 1.2 mg/dL (0.55-1.3)
[2024-04-01 15:12] LABS: BILIRUBIN,TOTAL 0.9 mg/dL (0.2-1); TOT PROT 7.2 g/dl (6.4-8.2)
[2024-04-01 15:16] LABS: N-TERMINAL BNP 10001.3 pg/ml (5-450)
[2024-04-01] MEDS: FUROSEMIDE 40 MG/4 ML INJECTABLE VIAL IVPUSH ONE (15:59)
[2024-04-01] MEDS ORDERED: FUROSEMIDE 40 MG/4 ML INJECTABLE VIAL ONE (16:26)
[2024-04-01] MEDS: FUROSEMIDE 40 MG/4 ML INJECTABLE VIAL IVPUSH SCH (21:55)
[2024-04-02] MEDS ORDERED: FUROSEMIDE 40 MG/4 ML INJECTABLE VIAL ONE (02:44)
[2024-04-02 08:27] LABS: EOS % 3.8 % (0-4.5); HEMATOCRIT 44.7 % (32.4-45.2); HEMOGLOBIN 14.3 GM/dL (10.7-15.3); LYMPH % 20.2 % (8-40); MCH 30.5 pg (25.7-33.7); MCHC 32.1 g/dl (32.0-36.0); MEAN CELL VOLUME 95.1 fl (80-96); MEAN PLT VOLUME 8.8 fl (7.5-11.1); MONO % 6.1 % (3.8-10.2); NEUT % 68.9 % (42.8-82.8); PLATELET COUNT 164 10^3/uL (134-434); RDW 16.6 % (11.6-15.6); WHITE BLOOD COUNT 4.9 K/mm3 (4.0-10.0)
[2024-04-02 08:31] LABS: POTASSIUM 3.9 mmol/L (3.5-5.1)
[2024-04-02 08:37] LABS: CALCIUM 9.8 mg/dL (8.5-10.1)
[2024-04-02 08:38] LABS: ALBUMIN 3.6 g/dl (3.4-5.0); BLOOD UREA NITROGEN 21.1 mg/dL (7-18); MAGNESIUM 1.9 mg/dL (1.8-2.4)
[2024-04-02 08:41] LABS: CREATININE 1.2 mg/dL (0.55-1.3); PHOSPHOROUS 3.4 mg/dL (2.5-4.9)
[2024-04-02 08:43] LABS: BILIRUBIN,TOTAL 0.9 mg/dL (0.2-1); TOT PROT 6.8 g/dl (6.4-8.2)
[2024-04-02] MEDS: metoPROLOL SUCCINATE 25 MG TAB.SR.24H (FP) PO SCH (09:40)
[2024-04-02] MEDS: PANTOPRAZOLE 40 MG TABLET PO SCH (09:40)
[2024-04-02] MEDS: APIXABAN 2.5 MG TABLET PO SCH (09:40)
[2024-04-02] MEDS: EMPAGLIFLOZIN (JARDIANCE) 10 MG TABLET PO SCH (09:40)
[2024-04-02] MEDS ORDERED: PATIENT'S OWN MEDICATION (NON-FORMULARY) (Tramadol Hcl/Acetaminophen [Tramadol-Acetaminoph PO PRN (10:00)
[2024-04-02 13:10] LABS: HIV INTERPRETATION NEGATIVE (NEGATIVE)
[2024-04-02] MEDS: FAMOTIDINE 20 MG/50 ML IVPB 20 MG/50 ML MG IVPB ONE (18:20)
[2024-04-02] MEDS: ROSUVASTATIN CA 10 MG TABLET PO SCH (22:17)
[2024-04-03 11:49] LABS: HEMOGLOBIN 15.1 GM/dL (10.7-15.3); MCH 30.4 pg (25.7-33.7); MCHC 32.2 g/dl (32.0-36.0); MEAN CELL VOLUME 94.6 fl (80-96); MEAN PLT VOLUME 8.5 fl (7.5-11.1); PLATELET COUNT 152 10^3/uL (134-434); RBC 4.97 M/mm3 (3.60-5.2); RDW 16.2 % (11.6-15.6); WHITE BLOOD COUNT 5.7 K/mm3 (4.0-10.0)
[2024-04-03 12:06] LABS: POTASSIUM 3.4 mmol/L (3.5-5.1)
[2024-04-03 12:07] LABS: ALBUMIN 3.6 g/dl (3.4-5.0); BLOOD UREA NITROGEN 19.5 mg/dL (7-18); CALCIUM 9.3 mg/dL (8.5-10.1)
[2024-04-03 12:12] LABS: CREATININE 1.3 mg/dL (0.55-1.3)
[2024-04-03 12:13] LABS: TOT PROT 6.9 g/dl (6.4-8.2)
[2024-04-03] MEDS: FAMOTIDINE 20 MG/50 ML IVPB 20 MG/50 ML MG IVPB ONE (16:47)
[2024-04-03] MEDS: POTASSIUM CHLORIDE ORAL LIQUID 20 MEQ/15 ML PO ONE (17:53)
[2024-04-03] MEDS: POTASSIUM CHLORIDE TABS 10 MEQ TABLET.ER (FP) PO ONE (18:32)
[2024-04-04] MEDS: FUROSEMIDE 40 MG/4 ML INJECTABLE VIAL IVPUSH SCH (06:36)
[2024-04-04 08:17] LABS: HEMATOCRIT 48.7 % (32.4-45.2); HEMOGLOBIN 15.6 GM/dL (10.7-15.3); MCH 30.6 pg (25.7-33.7); MCHC 32.1 g/dl (32.0-36.0); MEAN CELL VOLUME 95.3 fl (80-96); MEAN PLT VOLUME 8.8 fl (7.5-11.1); PLATELET COUNT 142 10^3/uL (134-434); RBC 5.11 M/mm3 (3.60-5.2); RDW 16.9 % (11.6-15.6); WHITE BLOOD COUNT 3.9 K/mm3 (4.0-10.0)
[2024-04-04 08:37] LABS: POTASSIUM 3.9 mmol/L (3.5-5.1)
[2024-04-04 08:44] LABS: ALBUMIN 3.6 g/dl (3.4-5.0); CALCIUM 9.5 mg/dL (8.5-10.1)
[2024-04-04 08:46] LABS: BLOOD UREA NITROGEN 19.7 mg/dL (7-18); MAGNESIUM 1.9 mg/dL (1.8-2.4)
[2024-04-04 08:49] LABS: CREATININE 1.4 mg/dL (0.55-1.3)
[2024-04-04 08:50] LABS: BILIRUBIN,TOTAL 1.1 mg/dL (0.2-1)
[2024-04-04 08:52] LABS: TOT PROT 6.9 g/dl (6.4-8.2)
[2024-04-04] MEDS: SACUBITRIL/VALSARTAN 24 MG-26 MG TABLET PO SCH (09:10)
[2024-04-04] MEDS: SPIRONOLACTONE 25 MG TABLET PO SCH (09:10)
[2024-04-04] MEDS: FAMOTIDINE 20 MG/50 ML IVPB 20 MG/50 ML MG IVPB ONE (11:15)
[2024-04-05] MEDS: ENOXAPARIN NA (PORCINE) 100 MG/1 ML DISP.SYRIN SQ SCH (09:28)
[2024-04-05 09:41] LABS: HEMATOCRIT 50.1 % (32.4-45.2); HEMOGLOBIN 16.2 GM/dL (10.7-15.3); MCH 30.6 pg (25.7-33.7); MCHC 32.3 g/dl (32.0-36.0); MEAN CELL VOLUME 94.6 fl (80-96); MEAN PLT VOLUME 9.5 fl (7.5-11.1); PLATELET COUNT 142 10^3/uL (134-434); RDW 15.9 % (11.6-15.6); WHITE BLOOD COUNT 3.2 K/mm3 (4.0-10.0)
[2024-04-05 09:53] LABS: POTASSIUM 4.8 mmol/L (3.5-5.1)
[2024-04-05 10:16] LABS: BLOOD UREA NITROGEN 18.7 mg/dL (7-18); CALCIUM 8.9 mg/dL (8.5-10.1)
[2024-04-05 10:20] LABS: CREATININE 1.4 mg/dL (0.55-1.3)
[2024-04-05] MEDS: MAGNESIUM CITRATE 300 ML BOTTLE PO SCH (10:41)
[2024-04-05] MEDS: ACETAMINOPHEN 1000 MG/100 ML BAG IVPB PRN (13:16)
[2024-04-05] MEDS: metoPROLOL SUCCINATE 25 MG TAB.SR.24H (FP) PO ONE (14:32)
[2024-04-05] MEDS: AMOX TR/POT CLAV 875MG/125MG TABLETS (FP) PO SCH (17:04)
[2024-04-05 19:09] LABS: MAGNESIUM 1.8 mg/dL (1.8-2.4)
[2024-04-06] MEDS: FUROSEMIDE 40 MG/4 ML INJECTABLE VIAL IVPUSH SCH (11:13)
[2024-04-06] MEDS: metoPROLOL SUCCINATE 25 MG TAB.SR.24H (FP) PO SCH (11:13)
[2024-04-06] MEDS: POLYETHYLENE GLYCOL (HEALTHYLAX) 3350 17 GM PACKET PO SCH (11:14)
[2024-04-06 11:19] LABS: HEMATOCRIT 45.2 % (32.4-45.2); HEMOGLOBIN 15.1 GM/dL (10.7-15.3); MCHC 33.5 g/dl (32.0-36.0); MEAN CELL VOLUME 92.7 fl (80-96); MEAN PLT VOLUME 9.6 fl (7.5-11.1); PLATELET COUNT 139 10^3/uL (134-434); RBC 4.88 M/mm3 (3.60-5.2); RDW 16.3 % (11.6-15.6); WHITE BLOOD COUNT 2.4 K/mm3 (4.0-10.0)
[2024-04-06 11:43] LABS: POTASSIUM 3.1 mmol/L (3.5-5.1)
[2024-04-06 11:47] LABS: BLOOD UREA NITROGEN 30.2 mg/dL (7-18)
[2024-04-06 11:50] LABS: CREATININE 1.8 mg/dL (0.55-1.3); MAGNESIUM 1.9 mg/dL (1.8-2.4); PHOSPHOROUS 3.8 mg/dL (2.5-4.9)
[2024-04-06 11:52] LABS: CALCIUM 8.5 mg/dL (8.5-10.1)
[2024-04-06] MEDS: ACETAMINOPHEN 500 MG TABLET (FP) PO SCH (15:47)
[2024-04-06] MEDS: METOCLOPRAMIDE HCL 10 MG TABLET (FP) PO SCH (17:33)
[2024-04-07] MEDS: MAGNESIUM CITRATE 300 ML BOTTLE PO ONE (09:40)
[2024-04-07] MEDS ORDERED: FUROSEMIDE 40 MG TABLET (FP) PO SCH (10:00)
[2024-04-07 10:15] LABS: HEMATOCRIT 45.4 % (32.4-45.2); HEMOGLOBIN 15.2 GM/dL (10.7-15.3); MCH 31.2 pg (25.7-33.7); MCHC 33.5 g/dl (32.0-36.0); MEAN PLT VOLUME 9.2 fl (7.5-11.1); PLATELET COUNT 122 10^3/uL (134-434); RBC 4.88 M/mm3 (3.60-5.2); RDW 16.1 % (11.6-15.6)
[2024-04-07 12:26] LABS: POTASSIUM 3.1 mmol/L (3.5-5.1)
[2024-04-07 12:30] LABS: CALCIUM 8.2 mg/dL (8.5-10.1)
[2024-04-07 12:31] LABS: BLOOD UREA NITROGEN 29.9 mg/dL (7-18); MAGNESIUM 2.1 mg/dL (1.8-2.4)
[2024-04-07 12:34] LABS: CREATININE 1.7 mg/dL (0.55-1.3); PHOSPHOROUS 3.2 mg/dL (2.5-4.9)
[2024-04-07 16:37] VITALS: BMI 31.9
[2024-04-07] MEDS: POTASSIUM CHLORIDE ORAL LIQUID 20 MEQ/15 ML PO ONE (17:02)
[2024-04-08 07:04] VITALS: RESP 18
[2024-04-08 07:06] VITALS: BP 121/66; PULSE 73; TEMP 98
[2024-04-08 10:11] LABS: POTASSIUM 3.3 mmol/L (3.5-5.1)
[2024-04-08 10:18] LABS: CALCIUM 8.6 mg/dL (8.5-10.1)
[2024-04-08 10:20] LABS: BLOOD UREA NITROGEN 31.5 mg/dL (7-18); MAGNESIUM 2.1 mg/dL (1.8-2.4)
[2024-04-08 10:22] LABS: CREATININE 1.6 mg/dL (0.55-1.3); PHOSPHOROUS 2.6 mg/dL (2.5-4.9)
[2024-04-08] MEDS: POTASSIUM CHLORIDE ORAL LIQUID 20 MEQ/15 ML PO ONE (14:19)
[2024-04-08] MEDS ORDERED: POTASSIUM CHLORIDE ORAL LIQUID 20 MEQ/15 ML PO ONE (18:00)
== END 2024-04-08 15:51 | disposition home or self-care (01) | DRG 291 ==
LOC: JER 10:42 → JERBED 23:04 → OBSVTOIN 23:19 → J4S 04-02 03:33
PROVIDERS: ADMIT Internal Medicine; ATTEND Internal Medicine
DX: I11.0 Hypertensive heart disease with heart failure (principal); I50.23 Acute on chronic systolic (congestive) heart failure; I24.89 Other forms of acute ischemic heart disease; J43.9 Emphysema, unspecified; E66.01 Morbid (severe) obesity due to excess calories; I25.10 Atherosclerotic heart disease of native coronary artery without angina pectoris; E78.5 Hyperlipidemia, unspecified; I89.0 Lymphedema, not elsewhere classified; E87.6 Hypokalemia; K59.00 Constipation, unspecified; K82.8 Other specified diseases of gallbladder; K80.50 Calculus of bile duct without cholangitis or cholecystitis without obstruction
CPT/HCPCS: 36415; 71045-TC-FY; 76705-TC; 80048; 80053; 83735; 83880; 84100; 84484; 85025; 85027; 85610; 85730; 86803; 87389; 93005; 93010; 97116-GP; 97161-GP; 99285-25; G0378; J0131

== ENCOUNTER 2024-04-09 07:30 | Inpatient (IN) | payer OTHER, BC ==
[2024-04-09 09:05] LABS: VENOUS BASE EXCESS 3.9 mmol/L (-2-2); VENOUS O2 SATURATION 42.4 % (70-80); VENOUS PCO2 47.1 mmHg (38-52); VENOUS PH 7.413 (7.310-7.410)
[2024-04-09 09:18] LABS: BASO % 0.8 % (0-2.0); EOS % 0.1 % (0-4.5); HEMATOCRIT 49.4 % (32.4-45.2); HEMOGLOBIN 16.4 GM/dL (10.7-15.3); LYMPH % 38.9 % (8-40); MCH 30.8 pg (25.7-33.7); MCHC 33.2 g/dl (32.0-36.0); MEAN CELL VOLUME 92.6 fl (80-96); MONO % 15.9 % (3.8-10.2); NEUT % 44.3 % (42.8-82.8); PLATELET COUNT 114 10^3/uL (134-434); RBC 5.33 M/mm3 (3.60-5.2); RDW 16.1 % (11.6-15.6); WHITE BLOOD COUNT 2.2 K/mm3 (4.0-10.0)
[2024-04-09 09:24] LABS: POTASSIUM 3.5 mmol/L (3.5-5.1)
[2024-04-09 09:25] LABS: INR 1.08 (0.83-1.09); PROTHROMBIN TIME (PATIENT) 12.4 SEC (9.7-13.0)
[2024-04-09 09:26] LABS: CALCIUM 8.8 mg/dL (8.5-10.1); MAGNESIUM 2.2 mg/dL (1.8-2.4)
[2024-04-09 09:27] LABS: ALBUMIN 3.7 g/dl (3.4-5.0); BLOOD UREA NITROGEN 41.1 mg/dL (7-18)
[2024-04-09 09:28] LABS: ACTIVATED PTT 41.3 SECONDS (25.2-36.5)
[2024-04-09 09:31] LABS: BILIRUBIN,TOTAL 0.6 mg/dL (0.2-1); CREATININE 2.5 mg/dL (0.55-1.3); TOT PROT 7.1 g/dl (6.4-8.2)
[2024-04-09] MEDS: ALBUTEROL SO4 2.5/IPRATROPIUM 0.5 INH SOL 3 ML VIAL.NEB. NEB SCH (09:33)
[2024-04-09] MEDS ORDERED: FAMOTIDINE 20 MG/50 ML IVPB 20 MG/50 ML MG IVPB ONE (09:50)
[2024-04-09] MEDS ORDERED: MAG HYDROX/AL HYDROX/SIMETH 30 ML UNIT-DOSE CUP ONE (10:00)
[2024-04-09] MEDS: MAG HYDROX/AL HYDROX/SIMETH 30 ML UNIT-DOSE CUP PO ONE (10:04)
[2024-04-09] MEDS: SODIUM CHLORIDE 0.9% 500 ML INFUS.BAG IV ONE ×3 (10:04→14:03)
[2024-04-09] MEDS: FAMOTIDINE 20 MG/50 ML IVPB 20 MG/50 ML MG IVPB ONE (10:04)
[2024-04-09 10:07] LABS: N-TERMINAL BNP 15889.1 pg/ml (5-450)
[2024-04-09] MEDS ORDERED: ACETAMINOPHEN INJECTION 100 ML ONE (12:20)
[2024-04-09] MEDS: ACETAMINOPHEN 1000 MG/100 ML BAG IVPB ONE ×2 (12:38→23:52)
[2024-04-09] MEDS: LACTATED RINGERS SOLUTION 1000 ML INFUS.BAG IV ONE (14:03)
[2024-04-09] MEDS ORDERED: MIDODRINE HCL 5 MG TABLET ONE (14:08)
[2024-04-09] MEDS: MIDODRINE HCL 5 MG TABLET PO SCH ×2 (14:13→17:40)
[2024-04-09] MEDS: APIXABAN 2.5 MG TABLET PO SCH (21:37)
[2024-04-09] MEDS: MUPIROCIN 2% TOPICAL OINTMENT FOR DECOLONIZATION NS SCH (21:37)
[2024-04-09] MEDS: CHLORHEXIDINE GLUCONATE 4% CLEANSER FOR DECOLONIZATION TP SCH (21:37)
[2024-04-09] MEDS: AMOX TR/POT CLAV 500MG/125MG TABLETS (FP) PO SCH (21:59)
[2024-04-09] MEDS ORDERED: AMOX TR/POT CLAV 875MG/125MG TABLETS (FP) PO SCH (22:00)
[2024-04-09] MEDS: METOCLOPRAMIDE HCL INJECTION 10 MG/2 ML VIAL IVPUSH PRN (23:51)
[2024-04-10] MEDS: ONDANSETRON 4 MG/2 ML VIAL IVPUSH ONE (00:14)
[2024-04-10] MEDS ORDERED: ALBUTEROL SO4 2.5/IPRATROPIUM 0.5 INH SOL 3 ML VIAL.NEB. NEB PRN (06:06)
[2024-04-10 07:37] LABS: HEMATOCRIT 45.2 % (32.4-45.2); HEMOGLOBIN 15.2 GM/dL (10.7-15.3); MCH 30.9 pg (25.7-33.7); MCHC 33.6 g/dl (32.0-36.0); MEAN PLT VOLUME 9.5 fl (7.5-11.1); PLATELET COUNT 113 10^3/uL (134-434); RBC 4.91 M/mm3 (3.60-5.2); RDW 15.6 % (11.6-15.6); WHITE BLOOD COUNT 2.8 K/mm3 (4.0-10.0)
[2024-04-10 07:51] LABS: POTASSIUM 3.5 mmol/L (3.5-5.1)
[2024-04-10 07:59] LABS: CALCIUM 8.5 mg/dL (8.5-10.1)
[2024-04-10 08:00] LABS: ALBUMIN 3.4 g/dl (3.4-5.0); BLOOD UREA NITROGEN 47.6 mg/dL (7-18); MAGNESIUM 2.3 mg/dL (1.8-2.4)
[2024-04-10 08:02] LABS: CREATININE 2.7 mg/dL (0.55-1.3); PHOSPHOROUS 3.9 mg/dL (2.5-4.9)
[2024-04-10 08:04] LABS: BILIRUBIN,TOTAL 0.5 mg/dL (0.2-1); TOT PROT 6.4 g/dl (6.4-8.2)
[2024-04-10 08:05] LABS: N-TERMINAL BNP 12438.6 pg/ml (5-450)
[2024-04-10 08:09] LABS: INR 1.12 (0.83-1.09); PROTHROMBIN TIME (PATIENT) 12.6 SEC (9.7-13.0)
[2024-04-10] MEDS: metoPROLOL SUCCINATE 25 MG TAB.SR.24H (FP) PO SCH (09:14)
[2024-04-10] MEDS: PANTOPRAZOLE 40 MG TABLET PO SCH (09:15)
[2024-04-10] MEDS: LACTOBACILLUS ACIDOPHILUS 1 TABLET PO SCH (09:15)
[2024-04-10 09:17] LABS: ANISOCYTOSIS 0; HELMET CELLS 0; HOWELL-JOLLY BODIES 0; MACROCYTOSIS 0; OVALOCYTE 0; ROULEAU 0; SICKELED CELLS 0; TARGET CELLS 0; TEAR DROP CELLS 0; TOXIC GRANULATION 0
[2024-04-11] MEDS ORDERED: ALBUTEROL SO4 2.5/IPRATROPIUM 0.5 INH SOL 3 ML VIAL.NEB. NEB PRN (14:48)
[2024-04-11] MEDS ORDERED: METOCLOPRAMIDE HCL INJECTION 10 MG/2 ML VIAL IVPUSH PRN (14:48)
[2024-04-11] MEDS: AMOX TR/POT CLAV 500MG/125MG TABLETS (FP) PO SCH (18:53)
[2024-04-11 19:10] LABS: EPI CELLS >36 /uL (0-25.1); HYALINE CASTS 2 /uL (0-3.1); PH,URINE 5.5 (5.0-8.0); URINE APPEARANCE CLOUDY; URINE BACTERIA 3694 /uL (0-1359); URINE BILIRUBIN NEGATIVE (NEGATIVE); URINE COLOR YELLOW; URINE GLUCOSE (UA) NEGATIVE (NEGATIVE); URINE KETONE NEGATIVE (NEGATIVE); URINE LEUK ESTERASE 2+ (NEGATIVE); URINE NITRITE NEGATIVE (NEGATIVE); URINE PROTEIN 2+ (NEGATIVE); URINE RBC 150.9 /uL (0-23.9); URINE UROBILINOGEN 0.2 mg/dL (0.2-1.0); URINE WBC 84 /uL (0-25.8)
[2024-04-11] MEDS: APIXABAN 2.5 MG TABLET PO SCH (23:02)
[2024-04-12 08:33] LABS: BASO % 0.3 % (0-2.0); EOS % 1.3 % (0-4.5); HEMATOCRIT 42.4 % (32.4-45.2); HEMOGLOBIN 14.1 GM/dL (10.7-15.3); LYMPH % 41.8 % (8-40); MCH 30.7 pg (25.7-33.7); MCHC 33.1 g/dl (32.0-36.0); MEAN CELL VOLUME 92.5 fl (80-96); MEAN PLT VOLUME 9.5 fl (7.5-11.1); NEUT % 44.6 % (42.8-82.8); PLATELET COUNT 128 10^3/uL (134-434); RBC 4.59 M/mm3 (3.60-5.2); RDW 15.9 % (11.6-15.6); WHITE BLOOD COUNT 3.6 K/mm3 (4.0-10.0)
[2024-04-12 09:04] LABS: CALCIUM 8.2 mg/dL (8.5-10.1)
[2024-04-12 09:05] LABS: ALBUMIN 3.1 g/dl (3.4-5.0); BLOOD UREA NITROGEN 33.5 mg/dL (7-18)
[2024-04-12 09:08] LABS: CREATININE 1.3 mg/dL (0.55-1.3)
[2024-04-12 09:09] LABS: BILIRUBIN,TOTAL 0.7 mg/dL (0.2-1); TOT PROT 6.2 g/dl (6.4-8.2)
[2024-04-12] MEDS: PANTOPRAZOLE 40 MG TABLET PO SCH (10:21)
[2024-04-12] MEDS: metoPROLOL SUCCINATE 25 MG TAB.SR.24H (FP) PO SCH (10:21)
[2024-04-12] MEDS: LACTOBACILLUS ACIDOPHILUS 1 TABLET PO SCH ×2 (10:22→21:37)
[2024-04-12 11:50] LABS: MAGNESIUM 2.3 mg/dL (1.8-2.4)
[2024-04-12] MEDS ORDERED: BENZOCAINE/MENTH/CETYLPYRD CL 1 EACH LOZENGE MM PRN (13:47)
[2024-04-12] MEDS: ZINC SULFATE 220 MG CAPSULE (FP) PO SCH (13:50)
[2024-04-12] MEDS: MULTIVITAMINS (DAILY MVI) TABLET (FP) PO SCH (13:50)
[2024-04-12] MEDS: ASCORBIC ACID 250 MG TABLET (FP) PO SCH (13:51)
[2024-04-12] MEDS: guaiFENesin 200 MG/10 ML 10 ML UNIT-DOSE CUPS PO PRN (13:51)
[2024-04-12] MEDS: metoPROLOL SUCCINATE 25 MG TAB.SR.24H (FP) PO ONE ×2 (14:18→21:36)
[2024-04-13 08:21] LABS: POTASSIUM 3.9 mmol/L (3.5-5.1)
[2024-04-13 08:25] LABS: BLOOD UREA NITROGEN 27.8 mg/dL (7-18)
[2024-04-13 08:26] LABS: CALCIUM 8.2 mg/dL (8.5-10.1)
[2024-04-13 08:28] LABS: BASO % 0.8 % (0-2.0); CREATININE 1.2 mg/dL (0.55-1.3); EOS % 1.5 % (0-4.5); HEMOGLOBIN 14.3 GM/dL (10.7-15.3); LYMPH % 33.1 % (8-40); MCH 30.6 pg (25.7-33.7); MCHC 33.2 g/dl (32.0-36.0); MEAN CELL VOLUME 92.1 fl (80-96); MEAN PLT VOLUME 9.4 fl (7.5-11.1); MONO % 9.8 % (3.8-10.2); NEUT % 54.8 % (42.8-82.8); PLATELET COUNT 145 10^3/uL (134-434); RBC 4.67 M/mm3 (3.60-5.2); RDW 15.4 % (11.6-15.6); WHITE BLOOD COUNT 3.8 K/mm3 (4.0-10.0)
[2024-04-13 08:29] LABS: BILIRUBIN,TOTAL 0.8 mg/dL (0.2-1)
[2024-04-13 08:30] LABS: TOT PROT 6.2 g/dl (6.4-8.2)
[2024-04-13] MEDS: metoPROLOL SUCCINATE 25 MG TAB.SR.24H (FP) PO SCH (09:49)
[2024-04-13] MEDS ORDERED: guaiFENesin/D-METHORPHAN HB 10 ML UNIT-DOSE CUPS PO PRN (10:13)
[2024-04-13] MEDS: POTASSIUM CHLORIDE ORAL LIQUID 20 MEQ/15 ML PO ONE (11:48)
[2024-04-13 12:57] VITALS: BMI 31.3
[2024-04-13 16:23] VITALS: BP 88/74; PULSE 116; RESP 20; TEMP 97.5
== END 2024-04-13 18:14 | disposition home or self-care (01) | DRG 308 ==
LOC: JER 07:30 → JERBED 10:31 → JICU 15:15 → J4W 04-10 15:05
PROVIDERS: ADMIT Internal Medicine; ATTEND Internal Medicine
DX: I48.0 Paroxysmal atrial fibrillation (principal); L89.153 Pressure ulcer of sacral region, stage 3; I13.0 Hypertensive heart and chronic kidney disease with heart failure and stage 1 through stage 4 chronic kidney disease, or unspecified chronic kidney disease; I24.89 Other forms of acute ischemic heart disease; I50.22 Chronic systolic (congestive) heart failure; N17.9 Acute kidney failure, unspecified; I95.9 Hypotension, unspecified; J44.9 Chronic obstructive pulmonary disease, unspecified; K80.50 Calculus of bile duct without cholangitis or cholecystitis without obstruction; N18.9 Chronic kidney disease, unspecified; I25.10 Atherosclerotic heart disease of native coronary artery without angina pectoris; G47.30 Sleep apnea, unspecified; I44.7 Left bundle-branch block, unspecified; K29.50 Unspecified chronic gastritis without bleeding; E78.5 Hyperlipidemia, unspecified; E66.9 Obesity, unspecified; Z68.31 Body mass index [BMI] 31.0-31.9, adult; Z86.711 Personal history of pulmonary embolism
CPT/HCPCS: 0241U-QW; 36415; 71045-TC-FY; 74176-TC; 80053; 81003; 82150; 82550; 82553; 82803; 82962; 83036; 83605; 83690; 83735; 83880; 84100; 84443; 84484; 85025; 85610; 85730; 86850; 86900; 86901; 87040; 93005; 93010; 94761; 97116-GP; 97162-GP; 99285-25; J0131

== ENCOUNTER 2024-05-03 19:01 | Inpatient (IN) | payer OTHER, BC ==
[2024-05-03 19:38] VITALS: BMI 42.3
[2024-05-03 19:44] LABS: BASO % 0.8 % (0-2.0); EOS % 2.9 % (0-4.5); HEMATOCRIT 41.1 % (32.4-45.2); HEMOGLOBIN 13.2 GM/dL (10.7-15.3); LYMPH % 27.3 % (8-40); MCH 30.6 pg (25.7-33.7); MCHC 32.1 g/dl (32.0-36.0); MEAN CELL VOLUME 95.4 fl (80-96); MEAN PLT VOLUME 8.2 fl (7.5-11.1); MONO % 4.7 % (3.8-10.2); NEUT % 64.3 % (42.8-82.8); PLATELET COUNT 142 10^3/uL (134-434); RBC 4.31 M/mm3 (3.60-5.2); RDW 18.7 % (11.6-15.6); WHITE BLOOD COUNT 4.1 K/mm3 (4.0-10.0)
[2024-05-03 20:18] LABS: POTASSIUM 5.3 mmol/L (3.5-5.1)
[2024-05-03 20:21] LABS: ALBUMIN 3.6 g/dl (3.4-5.0); BLOOD UREA NITROGEN 34.6 mg/dL (7-18); CALCIUM 9.3 mg/dL (8.5-10.1); MAGNESIUM 2.4 mg/dL (1.8-2.4)
[2024-05-03 20:25] LABS: CREATININE 1.6 mg/dL (0.55-1.3)
[2024-05-03 20:26] LABS: BILIRUBIN,TOTAL 0.7 mg/dL (0.2-1); TOT PROT 6.8 g/dl (6.4-8.2)
[2024-05-03 20:29] LABS: N-TERMINAL BNP 10979.6 pg/ml (5-450)
[2024-05-03] MEDS ORDERED: VANCOMYCIN HCL 1,500 MG in DEXTROSE 5%-WATER - 500 ML IVPB ONE (21:22)
[2024-05-03] MEDS ORDERED: PIPERACILLIN/TAZOB 4.5 GM 4.5 GM/100 ML BAG IVPB ONE (21:37)
[2024-05-03] MEDS: PIPERACILLIN/TAZOB 4.5 GM 4.5 GM in DEXTROSE 5%-WATER 100 ML IVPB ONE (21:40)
[2024-05-03] MEDS: VANCOMYCIN PREMIX 1.5 GM 1,500 MG/300 ML BAG IVPB ONE (23:02)
[2024-05-04] MEDS ORDERED: SODIUM ZIRCONIUM CYCLOSILICATE (LOKELMA) 10 GM PACKET ONE (02:50)
[2024-05-04] MEDS: SODIUM ZIRCONIUM CYCLOSILICATE (LOKELMA) 5 GM PACKET PO ONE (02:57)
[2024-05-04] MEDS: MELATONIN 5 MG TABLETS PO PRN (02:57)
[2024-05-04 06:55] LABS: HEMATOCRIT 39.8 % (32.4-45.2); HEMOGLOBIN 12.7 GM/dL (10.7-15.3); MCH 30.9 pg (25.7-33.7); MCHC 31.9 g/dl (32.0-36.0); MEAN CELL VOLUME 96.7 fl (80-96); MEAN PLT VOLUME 8.4 fl (7.5-11.1); PLATELET COUNT 135 10^3/uL (134-434); RBC 4.12 M/mm3 (3.60-5.2); RDW 18.8 % (11.6-15.6); WHITE BLOOD COUNT 4.6 K/mm3 (4.0-10.0)
[2024-05-04 07:22] LABS: ALBUMIN 3.3 g/dl (3.4-5.0); CALCIUM 9.6 mg/dL (8.5-10.1)
[2024-05-04 07:23] LABS: BLOOD UREA NITROGEN 33.7 mg/dL (7-18)
[2024-05-04 07:26] LABS: CREATININE 1.5 mg/dL (0.55-1.3)
[2024-05-04 09:24] LABS: EPI CELLS 33 /uL (0-25.1); HYALINE CASTS 1 /uL (0-3.1); URINE APPEARANCE CLOUDY; URINE BACTERIA 620 /uL (0-1359); URINE BILIRUBIN NEGATIVE (NEGATIVE); URINE COLOR YELLOW; URINE GLUCOSE (UA) 2+ (NEGATIVE); URINE KETONE TRACE (NEGATIVE); URINE LEUK ESTERASE 2+ (NEGATIVE); URINE NITRITE NEGATIVE (NEGATIVE); URINE PROTEIN 1+ (NEGATIVE); URINE RBC 18 /uL (0-23.9); URINE UROBILINOGEN 0.2 mg/dL (0.2-1.0); URINE WBC 30 /uL (0-25.8)
[2024-05-04] MEDS: ZINC SULFATE 220 MG CAPSULE (FP) PO SCH (09:45)
[2024-05-04] MEDS: metoPROLOL SUCCINATE 25 MG TAB.SR.24H (FP) PO SCH (09:45)
[2024-05-04] MEDS: PANTOPRAZOLE 40 MG TABLET PO SCH (09:45)
[2024-05-04] MEDS: APIXABAN 2.5 MG TABLET PO SCH (09:45)
[2024-05-04] MEDS: FUROSEMIDE 40 MG/4 ML INJECTABLE VIAL IVPUSH ONE (13:42)
[2024-05-04] MEDS: ROSUVASTATIN CA 10 MG TABLET PO SCH (22:16)
[2024-05-04] MEDS: LACTOBACILLUS ACIDOPHILUS 1 TABLET PO SCH (22:16)
[2024-05-05] MEDS: PANTOPRAZOLE 40 MG TABLET PO SCH (06:00)
[2024-05-05 09:00] LABS: BASO % 0.5 % (0-2.0); EOS % 4.2 % (0-4.5); HEMATOCRIT 41.6 % (32.4-45.2); HEMOGLOBIN 13.5 GM/dL (10.7-15.3); LYMPH % 31.7 % (8-40); MCHC 32.3 g/dl (32.0-36.0); MEAN CELL VOLUME 95.9 fl (80-96); MEAN PLT VOLUME 8.6 fl (7.5-11.1); NEUT % 56.6 % (42.8-82.8); PLATELET COUNT 138 10^3/uL (134-434); RBC 4.34 M/mm3 (3.60-5.2); WHITE BLOOD COUNT 3.2 K/mm3 (4.0-10.0)
[2024-05-05 09:20] LABS: POTASSIUM 4.9 mmol/L (3.5-5.1)
[2024-05-05 09:33] LABS: ALBUMIN 3.2 g/dl (3.4-5.0); BLOOD UREA NITROGEN 31.1 mg/dL (7-18)
[2024-05-05 09:34] LABS: CALCIUM 9.3 mg/dL (8.5-10.1)
[2024-05-05 09:35] LABS: MAGNESIUM 2.1 mg/dL (1.8-2.4)
[2024-05-05 09:36] LABS: CREATININE 1.4 mg/dL (0.55-1.3); PHOSPHOROUS 4.1 mg/dL (2.5-4.9)
[2024-05-05 09:39] LABS: BILIRUBIN,TOTAL 0.8 mg/dL (0.2-1)
[2024-05-05] MEDS ORDERED: PATIENT'S OWN MEDICATION (NON-FORMULARY) (Famotidine 40 MG Tablet) PO SCH (10:00)
[2024-05-05] MEDS: FAMOTIDINE 20 MG TABLET PO SCH (10:26)
[2024-05-05] MEDS: FUROSEMIDE 40 MG/4 ML INJECTABLE VIAL IVPUSH ONE (13:03)
[2024-05-05] MEDS: guaiFENesin 200 MG/10 ML 10 ML UNIT-DOSE CUPS PO PRN (21:24)
[2024-05-06 08:29] LABS: BASO % 0.8 % (0-2.0); EOS % 3.7 % (0-4.5); HEMATOCRIT 43.5 % (32.4-45.2); HEMOGLOBIN 14.4 GM/dL (10.7-15.3); LYMPH % 29.3 % (8-40); MCH 31.7 pg (25.7-33.7); MEAN CELL VOLUME 95.9 fl (80-96); MEAN PLT VOLUME 8.5 fl (7.5-11.1); NEUT % 59.2 % (42.8-82.8); PLATELET COUNT 139 10^3/uL (134-434); RBC 4.54 M/mm3 (3.60-5.2); RDW 18.7 % (11.6-15.6); WHITE BLOOD COUNT 4.5 K/mm3 (4.0-10.0)
[2024-05-06 08:51] LABS: POTASSIUM 4.9 mmol/L (3.5-5.1)
[2024-05-06 08:56] LABS: CALCIUM 8.9 mg/dL (8.5-10.1)
[2024-05-06 08:57] LABS: ALBUMIN 3.3 g/dl (3.4-5.0); BLOOD UREA NITROGEN 33.9 mg/dL (7-18); MAGNESIUM 1.9 mg/dL (1.8-2.4)
[2024-05-06 09:00] LABS: CREATININE 1.5 mg/dL (0.55-1.3); PHOSPHOROUS 3.8 mg/dL (2.5-4.9)
[2024-05-06 09:02] LABS: TOT PROT 6.3 g/dl (6.4-8.2)
[2024-05-06] MEDS: FUROSEMIDE 40 MG/4 ML INJECTABLE VIAL IVPUSH ONE (10:00)
[2024-05-06] MEDS: SACUBITRIL/VALSARTAN 24 MG-26 MG TABLET PO SCH (14:54)
[2024-05-07 08:34] LABS: BASO % 0.6 % (0-2.0); EOS % 2.7 % (0-4.5); HEMATOCRIT 43.4 % (32.4-45.2); HEMOGLOBIN 14.1 GM/dL (10.7-15.3); MCH 31.2 pg (25.7-33.7); MCHC 32.6 g/dl (32.0-36.0); MEAN CELL VOLUME 95.7 fl (80-96); MEAN PLT VOLUME 8.5 fl (7.5-11.1); MONO % 6.6 % (3.8-10.2); NEUT % 61.1 % (42.8-82.8); PLATELET COUNT 155 10^3/uL (134-434); RBC 4.53 M/mm3 (3.60-5.2); RDW 18.3 % (11.6-15.6); WHITE BLOOD COUNT 4.8 K/mm3 (4.0-10.0)
[2024-05-07 08:46] LABS: POTASSIUM 4.8 mmol/L (3.5-5.1)
[2024-05-07 08:48] LABS: ALBUMIN 3.2 g/dl (3.4-5.0); BLOOD UREA NITROGEN 38.7 mg/dL (7-18); CALCIUM 8.8 mg/dL (8.5-10.1)
[2024-05-07 08:51] LABS: CREATININE 1.5 mg/dL (0.55-1.3)
[2024-05-07 08:53] LABS: BILIRUBIN,TOTAL 0.8 mg/dL (0.2-1); TOT PROT 6.2 g/dl (6.4-8.2)
[2024-05-07] MEDS: FAMOTIDINE 20 MG TABLET PO SCH (09:38)
[2024-05-07] MEDS ORDERED: ACETAMINOPHEN 1000 MG/100 ML BAG IVPB PRN (13:11)
[2024-05-08 08:38] LABS: BASO % 0.5 % (0-2.0); EOS % 3.1 % (0-4.5); HEMATOCRIT 41.6 % (32.4-45.2); HEMOGLOBIN 13.3 GM/dL (10.7-15.3); LYMPH % 29.6 % (8-40); MEAN CELL VOLUME 96.8 fl (80-96); MEAN PLT VOLUME 8.6 fl (7.5-11.1); MONO % 7.2 % (3.8-10.2); NEUT % 59.6 % (42.8-82.8); PLATELET COUNT 156 10^3/uL (134-434); RDW 18.6 % (11.6-15.6); WHITE BLOOD COUNT 4.2 K/mm3 (4.0-10.0)
[2024-05-08 10:33] LABS: ALBUMIN 3.1 g/dl (3.4-5.0); BILIRUBIN,TOTAL 0.7 mg/dL (0.2-1); BLOOD UREA NITROGEN 38.6 mg/dL (7-18); CALCIUM 8.9 mg/dL (8.5-10.1); CREATININE 1.4 mg/dL (0.55-1.3); POTASSIUM 4.7 mmol/L (3.5-5.1); TOT PROT 5.9 g/dl (6.4-8.2)
[2024-05-09 09:31] LABS: BASO % 0.9 % (0-2.0); EOS % 2.6 % (0-4.5); HEMATOCRIT 43.5 % (32.4-45.2); HEMOGLOBIN 14.2 GM/dL (10.7-15.3); LYMPH % 25.7 % (8-40); MCH 31.3 pg (25.7-33.7); MCHC 32.8 g/dl (32.0-36.0); MEAN CELL VOLUME 95.4 fl (80-96); MEAN PLT VOLUME 8.3 fl (7.5-11.1); MONO % 6.6 % (3.8-10.2); NEUT % 64.2 % (42.8-82.8); PLATELET COUNT 163 10^3/uL (134-434); RBC 4.56 M/mm3 (3.60-5.2); RDW 18.6 % (11.6-15.6); WHITE BLOOD COUNT 4.3 K/mm3 (4.0-10.0)
[2024-05-09 09:48] LABS: POTASSIUM 4.8 mmol/L (3.5-5.1)
[2024-05-09 09:52] LABS: MAGNESIUM 2.1 mg/dL (1.8-2.4)
[2024-05-09 09:55] LABS: PHOSPHOROUS 3.5 mg/dL (2.5-4.9)
[2024-05-09] MEDS: FUROSEMIDE 40 MG/4 ML INJECTABLE VIAL IVPUSH SCH (12:40)
[2024-05-09 13:08] LABS: ALBUMIN 3.4 g/dl (3.4-5.0); BILIRUBIN,TOTAL 0.7 mg/dL (0.2-1); BLOOD UREA NITROGEN 41.4 mg/dL (7-18); CALCIUM 8.7 mg/dL (8.5-10.1); CREATININE 1.6 mg/dL (0.55-1.3); POTASSIUM 4.9 mmol/L (3.5-5.1); TOT PROT 6.4 g/dl (6.4-8.2)
[2024-05-10 09:04] LABS: HEMATOCRIT 45.2 % (32.4-45.2); HEMOGLOBIN 14.9 GM/dL (10.7-15.3); MCH 31.4 pg (25.7-33.7); MEAN PLT VOLUME 8.6 fl (7.5-11.1); PLATELET COUNT 173 10^3/uL (134-434); RBC 4.76 M/mm3 (3.60-5.2); RDW 18.4 % (11.6-15.6); WHITE BLOOD COUNT 4.9 K/mm3 (4.0-10.0)
[2024-05-10 09:20] LABS: POTASSIUM 4.8 mmol/L (3.5-5.1)
[2024-05-10 09:26] LABS: ALBUMIN 3.6 g/dl (3.4-5.0); BLOOD UREA NITROGEN 45.2 mg/dL (7-18); CALCIUM 8.8 mg/dL (8.5-10.1)
[2024-05-10 09:30] LABS: CREATININE 1.6 mg/dL (0.55-1.3)
[2024-05-10 09:31] LABS: BILIRUBIN,TOTAL 0.7 mg/dL (0.2-1); TOT PROT 6.7 g/dl (6.4-8.2)
[2024-05-11 08:07] LABS: BASO % 0.7 % (0-2.0); EOS % 1.1 % (0-4.5); HEMATOCRIT 44.5 % (32.4-45.2); HEMOGLOBIN 14.4 GM/dL (10.7-15.3); LYMPH % 23.5 % (8-40); MCH 31.1 pg (25.7-33.7); MCHC 32.4 g/dl (32.0-36.0); MEAN CELL VOLUME 95.9 fl (80-96); MEAN PLT VOLUME 8.4 fl (7.5-11.1); MONO % 6.4 % (3.8-10.2); NEUT % 68.3 % (42.8-82.8); PLATELET COUNT 174 10^3/uL (134-434); RBC 4.64 M/mm3 (3.60-5.2); WHITE BLOOD COUNT 5.6 K/mm3 (4.0-10.0)
[2024-05-11 08:26] LABS: POTASSIUM 5.3 mmol/L (3.5-5.1)
[2024-05-11 08:30] LABS: ALBUMIN 3.4 g/dl (3.4-5.0); BLOOD UREA NITROGEN 53.3 mg/dL (7-18); MAGNESIUM 2.3 mg/dL (1.8-2.4)
[2024-05-11 08:34] LABS: PHOSPHOROUS 3.6 mg/dL (2.5-4.9)
[2024-05-11 08:35] LABS: BILIRUBIN,TOTAL 0.7 mg/dL (0.2-1); TOT PROT 6.6 g/dl (6.4-8.2)
[2024-05-11] MEDS: MAG HYDROX/AL HYDROX/SIMETH 30 ML UNIT-DOSE CUP PO PRN (11:05)
[2024-05-11] MEDS: SODIUM ZIRCONIUM CYCLOSILICATE (LOKELMA) 5 GM PACKET PO SCH (13:11)
[2024-05-12 07:40] LABS: BASO % 0.6 % (0-2.0); EOS % 1.6 % (0-4.5); HEMATOCRIT 41.3 % (32.4-45.2); HEMOGLOBIN 13.3 GM/dL (10.7-15.3); LYMPH % 17.2 % (8-40); MCHC 32.2 g/dl (32.0-36.0); MEAN CELL VOLUME 96.1 fl (80-96); MEAN PLT VOLUME 8.4 fl (7.5-11.1); MONO % 6.1 % (3.8-10.2); NEUT % 74.5 % (42.8-82.8); PLATELET COUNT 169 10^3/uL (134-434); RBC 4.29 M/mm3 (3.60-5.2); RDW 18.6 % (11.6-15.6); WHITE BLOOD COUNT 5.6 K/mm3 (4.0-10.0)
[2024-05-12 07:54] LABS: POTASSIUM 4.2 mmol/L (3.5-5.1)
[2024-05-12 08:01] LABS: ALBUMIN 3.4 g/dl (3.4-5.0); BLOOD UREA NITROGEN 53.5 mg/dL (7-18); CALCIUM 8.9 mg/dL (8.5-10.1)
[2024-05-12 08:04] LABS: CREATININE 1.9 mg/dL (0.55-1.3)
[2024-05-12 08:06] LABS: BILIRUBIN,TOTAL 0.8 mg/dL (0.2-1); TOT PROT 6.2 g/dl (6.4-8.2)
[2024-05-12] MEDS: COLLAGENASE CLOSTRIDIUM HIST. 30 GRAMS TUBE TP SCH (18:13)
[2024-05-13 08:50] LABS: HEMATOCRIT 40.7 % (32.4-45.2); HEMOGLOBIN 13.2 GM/dL (10.7-15.3); MCHC 32.5 g/dl (32.0-36.0); MEAN CELL VOLUME 95.4 fl (80-96); MEAN PLT VOLUME 8.2 fl (7.5-11.1); PLATELET COUNT 174 10^3/uL (134-434); RBC 4.27 M/mm3 (3.60-5.2); RDW 17.9 % (11.6-15.6); WHITE BLOOD COUNT 5.6 K/mm3 (4.0-10.0)
[2024-05-13 09:09] LABS: CALCIUM 8.8 mg/dL (8.5-10.1)
[2024-05-13 09:10] LABS: BLOOD UREA NITROGEN 48.6 mg/dL (7-18)
[2024-05-13 09:13] LABS: CREATININE 1.8 mg/dL (0.55-1.3)
[2024-05-13 13:32] VITALS: RESP 16; TEMP 97.3
[2024-05-13 14:32] VITALS: BP 98/64; PULSE 52
== END 2024-05-13 17:33 | disposition home or self-care (01) | DRG 308 ==
LOC: JER 19:01 → JERBED 21:24 → J4S 05-04 04:19
PROVIDERS: ADMIT Internal Medicine; ATTEND Internal Medicine
DX: I48.91 Unspecified atrial fibrillation (principal); I50.23 Acute on chronic systolic (congestive) heart failure; L89.153 Pressure ulcer of sacral region, stage 3; I13.0 Hypertensive heart and chronic kidney disease with heart failure and stage 1 through stage 4 chronic kidney disease, or unspecified chronic kidney disease; I24.89 Other forms of acute ischemic heart disease; Z68.41 Body mass index [BMI] 40.0-44.9, adult; J44.9 Chronic obstructive pulmonary disease, unspecified; E66.01 Morbid (severe) obesity due to excess calories; E78.5 Hyperlipidemia, unspecified; G47.33 Obstructive sleep apnea (adult) (pediatric); N18.9 Chronic kidney disease, unspecified
CPT/HCPCS: 0241U-QW; 36415; 71045-TC-FY; 71250-TC; 76775-TC; 80048; 80053; 81003; 82550; 83735; 83880; 84100; 84132; 84484; 85025; 85027; 87086; 93005; 93010; 93306-TC; 93970-TC; 94761; 97116-GP; 97161-GP; 99285-25

== ENCOUNTER 2024-07-27 14:21 | Inpatient (IN) | payer OTHER, BC ==
[2024-07-27] MEDS ORDERED: FUROSEMIDE 40 MG/4 ML INJECTABLE VIAL ONE (15:29)
[2024-07-27] MEDS: FUROSEMIDE 40 MG/4 ML INJECTABLE VIAL IVPUSH ONE (16:10)
[2024-07-27] MEDS ORDERED: VANCOMYCIN 1,000 MG in DEXTROSE 5%-WATER - 250 ML IVPB ONE (16:28)
[2024-07-27 16:29] LABS: BASO % 1.1 % (0-2.0); EOS % 2.8 % (0-4.5); HEMATOCRIT 46.9 % (32.4-45.2); HEMOGLOBIN 15.1 GM/dL (10.7-15.3); LYMPH % 24.5 % (8-40); MCH 30.9 pg (25.7-33.7); MCHC 32.3 g/dl (32.0-36.0); MEAN CELL VOLUME 95.9 fl (80-96); MEAN PLT VOLUME 8.1 fl (7.5-11.1); MONO % 5.4 % (3.8-10.2); NEUT % 66.2 % (42.8-82.8); PLATELET COUNT 169 10^3/uL (134-434); RBC 4.89 M/mm3 (3.60-5.2); RDW 18.4 % (11.6-15.6); WHITE BLOOD COUNT 3.5 K/mm3 (4.0-10.0)
[2024-07-27 16:35] LABS: INR 1.75 (0.83-1.09); PROTHROMBIN TIME (PATIENT) 19.8 SEC (9.7-13.0)
[2024-07-27 16:38] LABS: ACTIVATED PTT 40.3 SECONDS (25.2-36.5)
[2024-07-27 16:56] LABS: POTASSIUM 3.9 mmol/L (3.5-5.1)
[2024-07-27 16:59] LABS: ALBUMIN 3.1 g/dl (3.4-5.0); CALCIUM 9.3 mg/dL (8.5-10.1)
[2024-07-27 17:01] LABS: BLOOD UREA NITROGEN 19.6 mg/dL (7-18)
[2024-07-27 17:02] LABS: CREATININE 1.3 mg/dL (0.55-1.3)
[2024-07-27 17:04] LABS: BILIRUBIN,TOTAL 1.3 mg/dL (0.2-1); TOT PROT 6.4 g/dl (6.4-8.2)
[2024-07-27 17:28] LABS: EPI CELLS 36 /uL (0-25.1); HYALINE CASTS 1 /uL (0-3.1); PH,URINE 5.5 (5.0-8.0); URINE APPEARANCE CLEAR; URINE BACTERIA 71 /uL (0-1359); URINE BILIRUBIN NEGATIVE (NEGATIVE); URINE COLOR YELLOW; URINE GLUCOSE (UA) 2+ (NEGATIVE); URINE KETONE TRACE (NEGATIVE); URINE LEUK ESTERASE TRACE (NEGATIVE); URINE NITRITE NEGATIVE (NEGATIVE); URINE PROTEIN 1+ (NEGATIVE); URINE RBC 32 /uL (0-23.9); URINE WBC 11 /uL (0-25.8)
[2024-07-27] MEDS ORDERED: ASPIRIN 81 MG CHEWABLE TABLETS ONE (17:31)
[2024-07-27] MEDS ORDERED: PIPERACILLIN/TAZOB 3.375 GM 3.375 GM/50 ML BAG IVPB ONE (17:32)
[2024-07-27] MEDS ORDERED: COLLAGENASE CLOSTRIDIUM HIST. 30 GRAMS TUBE TP SCH (17:38)
[2024-07-27] MEDS: ASPIRIN 81 MG CHEWABLE TABLETS PO ONE (17:44)
[2024-07-27] MEDS: PIPERACILLIN/TAZOB 3.375 GM 3.375 GM in DEXTROSE 5%-WATER - 50 ML IVPB ONE (17:44)
[2024-07-27] MEDS ORDERED: VANCOMYCIN 1 GM PREMIX (F) 1 GM/200 ML BAG ONE (18:28)
[2024-07-27] MEDS: VANCOMYCIN 1 GM PREMIX (F) 1 GM/200 ML BAG IVPB ONE (18:35)
[2024-07-27] MEDS: APIXABAN 2.5 MG TABLET PO SCH (21:34)
[2024-07-27] MEDS: ROSUVASTATIN CA 10 MG TABLET PO SCH (21:34)
[2024-07-28] MEDS: FUROSEMIDE 40 MG/4 ML INJECTABLE VIAL IVPUSH SCH (07:02)
[2024-07-28 08:13] LABS: BASO % 0.9 % (0-2.0); EOS % 5.5 % (0-4.5); HEMATOCRIT 44.6 % (32.4-45.2); HEMOGLOBIN 13.9 GM/dL (10.7-15.3); MCH 30.1 pg (25.7-33.7); MCHC 31.1 g/dl (32.0-36.0); MEAN CELL VOLUME 96.7 fl (80-96); MEAN PLT VOLUME 8.7 fl (7.5-11.1); MONO % 3.8 % (3.8-10.2); NEUT % 68.8 % (42.8-82.8); PLATELET COUNT 149 10^3/uL (134-434); RBC 4.62 M/mm3 (3.60-5.2); RDW 18.7 % (11.6-15.6); WHITE BLOOD COUNT 3.4 K/mm3 (4.0-10.0)
[2024-07-28 08:44] LABS: POTASSIUM 3.5 mmol/L (3.5-5.1)
[2024-07-28 08:50] LABS: BLOOD UREA NITROGEN 19.6 mg/dL (7-18)
[2024-07-28 08:53] LABS: CREATININE 1.3 mg/dL (0.55-1.3)
[2024-07-28] MEDS: PANTOPRAZOLE 40 MG TABLET PO SCH (09:37)
[2024-07-28] MEDS: SPIRONOLACTONE 25 MG TABLET PO SCH (09:37)
[2024-07-28] MEDS: metoPROLOL SUCCINATE 25 MG TAB.SR.24H (FP) PO SCH (09:39)
[2024-07-28] MEDS: EMPAGLIFLOZIN (JARDIANCE) 10 MG TABLET PO SCH (11:50)
[2024-07-28] MEDS ORDERED: METOPROLOL TARTRATE 5 MG/5 ML VIAL IVPUSH PRN (12:09)
[2024-07-28 12:38] LABS: MAGNESIUM 1.8 mg/dL (1.8-2.4)
[2024-07-28] MEDS: SACUBITRIL/VALSARTAN 24 MG-26 MG TABLET PO SCH (13:17)
[2024-07-29 07:18] LABS: HEMATOCRIT 47.1 % (32.4-45.2); HEMOGLOBIN 14.6 GM/dL (10.7-15.3); MCH 30.2 pg (25.7-33.7); MCHC 30.9 g/dl (32.0-36.0); MEAN CELL VOLUME 97.7 fl (80-96); MEAN PLT VOLUME 8.8 fl (7.5-11.1); PLATELET COUNT 149 10^3/uL (134-434); RBC 4.82 M/mm3 (3.60-5.2); RDW 18.7 % (11.6-15.6); WHITE BLOOD COUNT 3.4 K/mm3 (4.0-10.0)
[2024-07-29 07:43] LABS: POTASSIUM 3.5 mmol/L (3.5-5.1)
[2024-07-29 07:59] LABS: ALBUMIN 2.9 g/dl (3.4-5.0); BLOOD UREA NITROGEN 18.3 mg/dL (7-18)
[2024-07-29 08:00] LABS: MAGNESIUM 1.6 mg/dL (1.8-2.4)
[2024-07-29 08:02] LABS: CREATININE 1.3 mg/dL (0.55-1.3); PHOSPHOROUS 3.7 mg/dL (2.5-4.9); TOT PROT 5.9 g/dl (6.4-8.2)
[2024-07-29] MEDS ORDERED: MAGNESIUM 2GM/50ML STERILE WATER IVPB IVPB ONE (08:59)
[2024-07-29] MEDS: MAGNESIUM 2GM/50ML STERILE WATER IVPB IVPB ONE (11:53)
[2024-07-30] MEDS: POLYETHYLENE GLYCOL (HEALTHYLAX) 3350 17 GM PACKET PO SCH (07:12)
[2024-07-30 08:07] LABS: HEMATOCRIT 44.9 % (32.4-45.2); HEMOGLOBIN 14.3 GM/dL (10.7-15.3); MCH 30.5 pg (25.7-33.7); MCHC 31.8 g/dl (32.0-36.0); MEAN PLT VOLUME 8.2 fl (7.5-11.1); PLATELET COUNT 138 10^3/uL (134-434); RBC 4.67 M/mm3 (3.60-5.2); RDW 17.4 % (11.6-15.6); WHITE BLOOD COUNT 3.6 K/mm3 (4.0-10.0)
[2024-07-30 08:23] LABS: POTASSIUM 3.2 mmol/L (3.5-5.1)
[2024-07-30 08:26] LABS: ALBUMIN 2.6 g/dl (3.4-5.0); BLOOD UREA NITROGEN 18.8 mg/dL (7-18); CALCIUM 8.8 mg/dL (8.5-10.1); MAGNESIUM 1.6 mg/dL (1.8-2.4)
[2024-07-30 08:29] LABS: CREATININE 1.3 mg/dL (0.55-1.3)
[2024-07-30 08:30] LABS: PHOSPHOROUS 3.4 mg/dL (2.5-4.9)
[2024-07-30 08:31] LABS: BILIRUBIN,TOTAL 0.8 mg/dL (0.2-1); TOT PROT 5.7 g/dl (6.4-8.2)
[2024-07-30 10:13] VITALS: BMI 33.5
[2024-07-30] MEDS: ASCORBIC ACID 500 MG TABLET (FP) PO SCH (12:15)
[2024-07-30] MEDS: MULTIVITAMINS (DAILY MVI) TABLET (FP) PO SCH (12:15)
[2024-07-30] MEDS: MAGNESIUM 2GM/50ML STERILE WATER IVPB IVPB ONE (14:37)
[2024-07-30] MEDS: POTASSIUM CHLORIDE TABS 20 MEQ TABLET.ER (FP) PO ONE (18:47)
[2024-07-30] MEDS: ACETAMINOPHEN 1000 MG/100 ML BAG IVPB PRN (21:13)
[2024-07-31 07:33] LABS: HEMATOCRIT 45.2 % (32.4-45.2); HEMOGLOBIN 14.2 GM/dL (10.7-15.3); MCH 30.3 pg (25.7-33.7); MCHC 31.3 g/dl (32.0-36.0); MEAN CELL VOLUME 96.9 fl (80-96); MEAN PLT VOLUME 8.3 fl (7.5-11.1); PLATELET COUNT 142 10^3/uL (134-434); RBC 4.67 M/mm3 (3.60-5.2); RDW 17.8 % (11.6-15.6); WHITE BLOOD COUNT 3.8 K/mm3 (4.0-10.0)
[2024-07-31 07:57] LABS: POTASSIUM 3.5 mmol/L (3.5-5.1)
[2024-07-31 07:59] LABS: CALCIUM 9.1 mg/dL (8.5-10.1)
[2024-07-31 08:00] LABS: ALBUMIN 2.9 g/dl (3.4-5.0); BLOOD UREA NITROGEN 20.5 mg/dL (7-18)
[2024-07-31 08:03] LABS: CREATININE 1.3 mg/dL (0.55-1.3)
[2024-07-31 08:04] LABS: BILIRUBIN,TOTAL 1.2 mg/dL (0.2-1)
[2024-07-31] MEDS ORDERED: MAG HYDROX/AL HYDROX/SIMETH 30 ML UNIT-DOSE CUP PO PRN (16:15)
[2024-07-31] MEDS ORDERED: POTASSIUM CHLORIDE TABS 20 MEQ TABLET.ER (FP) PO ONE (17:43)
[2024-08-01 08:31] LABS: HEMATOCRIT 44.7 % (32.4-45.2); HEMOGLOBIN 14.6 GM/dL (10.7-15.3); MCHC 32.7 g/dl (32.0-36.0); MEAN CELL VOLUME 94.8 fl (80-96); MEAN PLT VOLUME 8.6 fl (7.5-11.1); PLATELET COUNT 135 10^3/uL (134-434); RBC 4.71 M/mm3 (3.60-5.2); RDW 17.7 % (11.6-15.6); WHITE BLOOD COUNT 3.2 K/mm3 (4.0-10.0)
[2024-08-01 08:39] LABS: POTASSIUM 3.7 mmol/L (3.5-5.1)
[2024-08-01 08:45] LABS: ALBUMIN 2.7 g/dl (3.4-5.0)
[2024-08-01 08:46] LABS: MAGNESIUM 1.8 mg/dL (1.8-2.4)
[2024-08-01 08:48] LABS: CREATININE 1.3 mg/dL (0.55-1.3)
[2024-08-01 08:49] LABS: CALCIUM 8.9 mg/dL (8.5-10.1); PHOSPHOROUS 3.1 mg/dL (2.5-4.9)
[2024-08-01 08:50] LABS: BILIRUBIN,TOTAL 1.2 mg/dL (0.2-1); TOT PROT 5.8 g/dl (6.4-8.2)
[2024-08-01 12:27] LABS: N-TERMINAL BNP 9181.5 pg/ml (5-450)
[2024-08-01] MEDS: FUROSEMIDE 40 MG TABLET (FP) PO SCH (13:55)
[2024-08-01] MEDS: SILVER SULFADIAZINE 1% TOP CREAM 400 GM JAR TP SCH (18:34)
[2024-08-02 07:19] LABS: HEMATOCRIT 43.3 % (32.4-45.2); HEMOGLOBIN 14.4 GM/dL (10.7-15.3); MCH 31.5 pg (25.7-33.7); MCHC 33.2 g/dl (32.0-36.0); MEAN PLT VOLUME 8.6 fl (7.5-11.1); PLATELET COUNT 129 10^3/uL (134-434); RBC 4.56 M/mm3 (3.60-5.2); RDW 17.6 % (11.6-15.6); WHITE BLOOD COUNT 3.4 K/mm3 (4.0-10.0)
[2024-08-02 07:35] LABS: POTASSIUM 3.7 mmol/L (3.5-5.1)
[2024-08-02 07:46] LABS: ALBUMIN 2.7 g/dl (3.4-5.0); BLOOD UREA NITROGEN 22.7 mg/dL (7-18); CALCIUM 8.8 mg/dL (8.5-10.1); MAGNESIUM 1.8 mg/dL (1.8-2.4)
[2024-08-02 07:49] LABS: CREATININE 1.3 mg/dL (0.55-1.3); PHOSPHOROUS 3.1 mg/dL (2.5-4.9)
[2024-08-02 07:51] LABS: BILIRUBIN,TOTAL 0.6 mg/dL (0.2-1); TOT PROT 5.9 g/dl (6.4-8.2)
[2024-08-02] MEDS: SACUBITRIL/VALSARTAN 24 MG-26 MG TABLET PO SCH (14:34)
[2024-08-03 05:06] VITALS: RESP 18
[2024-08-03] MEDS: EMPAGLIFLOZIN (JARDIANCE) 10 MG TABLET PO SCH (07:04)
[2024-08-03] MEDS: ACETAMINOPHEN 325 MG TABLET (FP) PO ONE (09:47)
[2024-08-03] MEDS: FUROSEMIDE 20 MG TABLET (FP) PO SCH (09:49)
[2024-08-03 15:50] VITALS: BP 138/107; PULSE 62; TEMP 98.2
== END 2024-08-03 14:52 | disposition home or self-care (01) | DRG 291 ==
LOC: JER 14:21 → JERBED 17:39 → J4W 20:54
PROVIDERS: ADMIT Internal Medicine; ATTEND Internal Medicine
DX: I11.0 Hypertensive heart disease with heart failure (principal); I50.23 Acute on chronic systolic (congestive) heart failure; L89.154 Pressure ulcer of sacral region, stage 4; J18.9 Pneumonia, unspecified organism; J44.0 Chronic obstructive pulmonary disease with (acute) lower respiratory infection; J90 Pleural effusion, not elsewhere classified; E78.5 Hyperlipidemia, unspecified; I25.10 Atherosclerotic heart disease of native coronary artery without angina pectoris; I48.91 Unspecified atrial fibrillation; J44.9 Chronic obstructive pulmonary disease, unspecified; E87.70 Fluid overload, unspecified
CPT/HCPCS: 0241U-QW; 36415; 71045-TC-FY; 76705-TC; 80048; 80053; 81003; 83735; 83880; 84100; 84439; 84443; 84484; 85025; 85027; 85610; 85730; 87086; 93005; 93010; 97116-GP; 99285-25; J0131

== ENCOUNTER 2024-09-12 16:20 | Inpatient (IN) | payer OTHER, BC ==
[2024-09-12 17:53] LABS: BASO % 0.9 % (0-2.0); HEMATOCRIT 43.9 % (32.4-45.2); HEMOGLOBIN 14.4 GM/dL (10.7-15.3); LYMPH % 28.1 % (8-40); MCH 30.7 pg (25.7-33.7); MCHC 32.7 g/dl (32.0-36.0); MEAN CELL VOLUME 93.7 fl (80-96); MEAN PLT VOLUME 8.2 fl (7.5-11.1); MONO % 5.7 % (3.8-10.2); NEUT % 63.3 % (42.8-82.8); PLATELET COUNT 134 10^3/uL (134-434); RBC 4.69 M/mm3 (3.60-5.2); RDW 17.4 % (11.6-15.6); WHITE BLOOD COUNT 3.2 K/mm3 (4.0-10.0)
[2024-09-12 17:58] LABS: INR 2.58 (0.83-1.09); PROTHROMBIN TIME (PATIENT) 28.1 SEC (9.7-13.0)
[2024-09-12 18:01] LABS: ACTIVATED PTT 38.7 SECONDS (25.2-36.5)
[2024-09-12 18:10] LABS: POTASSIUM 3.1 mmol/L (3.5-5.1)
[2024-09-12 18:13] LABS: CALCIUM 9.1 mg/dL (8.5-10.1)
[2024-09-12 18:14] LABS: ALBUMIN 3.3 g/dl (3.4-5.0); BLOOD UREA NITROGEN 15.5 mg/dL (7-18); MAGNESIUM 1.8 mg/dL (1.8-2.4)
[2024-09-12 18:15] LABS: PHOSPHOROUS 3.2 mg/dL (2.5-4.9)
[2024-09-12 18:17] LABS: CREATININE 1.5 mg/dL (0.55-1.3)
[2024-09-12 18:19] LABS: BILIRUBIN,TOTAL 1.1 mg/dL (0.2-1); TOT PROT 6.8 g/dl (6.4-8.2)
[2024-09-12] MEDS ORDERED: POTASSIUM CHLORIDE ORAL LIQUID 20 MEQ/15 ML PO ONE (22:40)
[2024-09-12] MEDS ORDERED: POTASSIUM CHLORIDE ORAL LIQUID 20 MEQ/15 ML ONE (23:05)
[2024-09-12] MEDS ORDERED: FUROSEMIDE 40 MG/4 ML INJECTABLE VIAL ONE (23:05)
[2024-09-12] MEDS: FUROSEMIDE 40 MG/4 ML INJECTABLE VIAL IVPUSH SCH (23:10)
[2024-09-12] MEDS: POTASSIUM CHLORIDE ORAL LIQUID 20 MEQ/15 ML PO ONE (23:10)
[2024-09-13] MEDS ORDERED: metoPROLOL SUCCINATE 25 MG TAB.SR.24H (FP) PO SCH ×2 (00:05→10:00)
[2024-09-13] MEDS ORDERED: APIXABAN 5 MG TABLET ONE (00:34)
[2024-09-13] MEDS ORDERED: POTASSIUM CHLORIDE ORAL LIQUID 20 MEQ/15 ML ONE (00:35)
[2024-09-13] MEDS: APIXABAN 5 MG TABLET PO SCH (00:39)
[2024-09-13] MEDS ORDERED: metoPROLOL SUCCINATE 25 MG TAB.SR.24H (FP) PO ONE (00:56)
[2024-09-13] MEDS: POTASSIUM CHLORIDE ORAL LIQUID 20 MEQ/15 ML PO ONE (01:00)
[2024-09-13] MEDS: metoPROLOL SUCCINATE 25 MG TAB.SR.24H (FP) PO ONE (01:01)
[2024-09-13] MEDS ORDERED: guaiFENesin 200 MG/10 ML 10 ML UNIT-DOSE CUPS PO PRN (04:47)
[2024-09-13 07:44] LABS: BASO % 0.7 % (0-2.0); EOS % 2.7 % (0-4.5); HEMATOCRIT 44.8 % (32.4-45.2); HEMOGLOBIN 14.4 GM/dL (10.7-15.3); LYMPH % 31.5 % (8-40); MCH 30.4 pg (25.7-33.7); MCHC 32.1 g/dl (32.0-36.0); MEAN CELL VOLUME 94.6 fl (80-96); MEAN PLT VOLUME 8.4 fl (7.5-11.1); MONO % 8.4 % (3.8-10.2); NEUT % 56.7 % (42.8-82.8); PLATELET COUNT 122 10^3/uL (134-434); RBC 4.73 M/mm3 (3.60-5.2); RDW 16.7 % (11.6-15.6); WHITE BLOOD COUNT 3.3 K/mm3 (4.0-10.0)
[2024-09-13 08:03] LABS: POTASSIUM 3.6 mmol/L (3.5-5.1)
[2024-09-13 08:09] LABS: CALCIUM 9.4 mg/dL (8.5-10.1)
[2024-09-13 08:10] LABS: ALBUMIN 3.1 g/dl (3.4-5.0)
[2024-09-13 08:13] LABS: CREATININE 1.4 mg/dL (0.55-1.3)
[2024-09-13 08:14] LABS: BILIRUBIN,TOTAL 1.2 mg/dL (0.2-1); TOT PROT 6.4 g/dl (6.4-8.2)
[2024-09-13] MEDS: metoPROLOL SUCCINATE 25 MG TAB.SR.24H (FP) PO SCH (09:41)
[2024-09-13] MEDS: ASCORBIC ACID 500 MG TABLET (FP) PO SCH (09:41)
[2024-09-13] MEDS: PANTOPRAZOLE 40 MG TABLET PO SCH (09:41)
[2024-09-13] MEDS: MULTIVITAMINS (DAILY MVI) TABLET (FP) PO SCH (09:41)
[2024-09-13] MEDS ORDERED: COLLAGENASE CLOSTRIDIUM HIST. 30 GRAMS TUBE TP SCH (10:00)
[2024-09-13] MEDS: ROSUVASTATIN CA 10 MG TABLET PO SCH (21:27)
[2024-09-14 06:49] LABS: BASO % 0.9 % (0-2.0); EOS % 3.9 % (0-4.5); HEMATOCRIT 46.1 % (32.4-45.2); HEMOGLOBIN 14.6 GM/dL (10.7-15.3); LYMPH % 31.8 % (8-40); MCH 30.1 pg (25.7-33.7); MCHC 31.7 g/dl (32.0-36.0); MEAN CELL VOLUME 94.9 fl (80-96); MEAN PLT VOLUME 8.6 fl (7.5-11.1); MONO % 7.2 % (3.8-10.2); NEUT % 56.2 % (42.8-82.8); PLATELET COUNT 116 10^3/uL (134-434); RBC 4.86 M/mm3 (3.60-5.2); RDW 17.3 % (11.6-15.6); WHITE BLOOD COUNT 3.9 K/mm3 (4.0-10.0)
[2024-09-14 06:59] LABS: POTASSIUM 3.4 mmol/L (3.5-5.1)
[2024-09-14 07:01] LABS: ALBUMIN 2.8 g/dl (3.4-5.0)
[2024-09-14 07:02] LABS: BLOOD UREA NITROGEN 14.5 mg/dL (7-18); MAGNESIUM 1.5 mg/dL (1.8-2.4)
[2024-09-14 07:05] LABS: CREATININE 1.5 mg/dL (0.55-1.3); PHOSPHOROUS 3.7 mg/dL (2.5-4.9)
[2024-09-14 07:06] LABS: BILIRUBIN,TOTAL 1.1 mg/dL (0.2-1); TOT PROT 5.9 g/dl (6.4-8.2)
[2024-09-14] MEDS: MAGNESIUM SULFATE IN WATER 2 GM/50 ML IVPB IVPB ONE (08:47)
[2024-09-14] MEDS: POTASSIUM CHLORIDE ORAL LIQUID 20 MEQ/15 ML PO ONE (09:33)
[2024-09-14] MEDS: SPIRONOLACTONE 25 MG TABLET PO SCH (09:49)
[2024-09-14] MEDS: SACUBITRIL/VALSARTAN 24 MG-26 MG TABLET PO SCH (09:49)
[2024-09-14] MEDS: APIXABAN 2.5 MG TABLET PO SCH (09:49)
[2024-09-14 15:41] VITALS: BMI 34.1
[2024-09-14] MEDS: AMINO ACIDS/PROTEIN HYDROLYS 30 ML LIQUID.PKT PO SCH (18:13)
[2024-09-15 06:36] VITALS: RESP 18
[2024-09-15 07:58] LABS: BASO % 0.8 % (0-2.0); EOS % 2.8 % (0-4.5); HEMATOCRIT 44.5 % (32.4-45.2); HEMOGLOBIN 14.5 GM/dL (10.7-15.3); LYMPH % 31.7 % (8-40); MCH 30.7 pg (25.7-33.7); MCHC 32.5 g/dl (32.0-36.0); MEAN CELL VOLUME 94.4 fl (80-96); MEAN PLT VOLUME 8.6 fl (7.5-11.1); MONO % 7.6 % (3.8-10.2); NEUT % 57.1 % (42.8-82.8); PLATELET COUNT 119 10^3/uL (134-434); RBC 4.71 M/mm3 (3.60-5.2); RDW 16.8 % (11.6-15.6); WHITE BLOOD COUNT 3.8 K/mm3 (4.0-10.0)
[2024-09-15 08:06] LABS: POTASSIUM 3.4 mmol/L (3.5-5.1)
[2024-09-15 08:08] LABS: CALCIUM 9.5 mg/dL (8.5-10.1)
[2024-09-15 08:09] LABS: BLOOD UREA NITROGEN 16.9 mg/dL (7-18); MAGNESIUM 1.7 mg/dL (1.8-2.4)
[2024-09-15 08:12] LABS: CREATININE 1.5 mg/dL (0.55-1.3); PHOSPHOROUS 3.8 mg/dL (2.5-4.9)
[2024-09-15 08:13] LABS: BILIRUBIN,TOTAL 1.2 mg/dL (0.2-1); TOT PROT 6.2 g/dl (6.4-8.2)
[2024-09-15] MEDS ORDERED: FUROSEMIDE 40 MG/4 ML INJECTABLE VIAL IVPUSH PRN (08:14)
[2024-09-15] MEDS: POTASSIUM CHLORIDE ORAL LIQUID 20 MEQ/15 ML PO ONE (09:53)
[2024-09-15] MEDS: ZINC SULFATE 220 MG CAPSULE (FP) PO SCH (09:57)
[2024-09-15] MEDS: POTASSIUM PHOSPHATE 30 MM in SODIUM CHLORIDE 500 ML IVPB ONE (10:26)
[2024-09-15] MEDS: MAGNESIUM SULFATE IN WATER 2 GM/50 ML IVPB IVPB ONE (11:12)
[2024-09-15] MEDS ORDERED: POTASSIUM PHOSPHATE 30 MM in DEXTROSE 5%-WATER - 500 ML IVPB ONE (11:15)
[2024-09-15 12:29] VITALS: BP 100/80; PULSE 77; TEMP 98.2
== END 2024-09-15 01:45 | disposition home or self-care (01) | DRG 291 ==
LOC: JER 16:20 → JERBED 21:55 → J4W 09-13 02:49
PROVIDERS: ADMIT Internal Medicine; ATTEND Internal Medicine
DX: I11.0 Hypertensive heart disease with heart failure (principal); I50.23 Acute on chronic systolic (congestive) heart failure; L89.153 Pressure ulcer of sacral region, stage 3; I24.89 Other forms of acute ischemic heart disease; I48.91 Unspecified atrial fibrillation; J44.9 Chronic obstructive pulmonary disease, unspecified; E78.5 Hyperlipidemia, unspecified; I44.7 Left bundle-branch block, unspecified; E87.6 Hypokalemia; K27.9 Peptic ulcer, site unspecified, unspecified as acute or chronic, without hemorrhage or perforation
CPT/HCPCS: 0241U-QW; 36415; 71046-TC-FY; 71275-TC; 80053; 83735; 83880; 84100; 84484; 85025; 85610; 85730; 93005; 93010; 93306-TC; 97116-GP; 97162-GP; 99285-25